=== PATIENT | female | born 1945 | race Caucasian/White ===

== ENCOUNTER 2016-11-26 12:08 | Inpatient (IN) | payer MEDICARE ==
[~2016-11-26] VITALS: Ht 160 cm; Wt 147.2 kg
--- NOTE | ~2016-11-26 | PR ---
[place], [place] PROGRESS NOTE NAME: MAU MARTINEZ [facility] #: [id number] UNIT #: [id number] ROOM: 410 DOCTOR: FLORI FERNANDES MD,EVELIN BIRTHDATE: [birth year] DOS: 12/07/2016 SUBJECTIVE: She has been doing well at this time. Currently being assessed the patient for transfer to the [facility]. The patient denies symptoms of chest pain, coughing or sputum expectoration. OBJECTIVE: VITAL SIGNS: For the patient, which were recorded showed normal temperature, respiratory rate 21, heart rate 58, blood pressure 147/57. The pulse oxygen saturation of the patient 3 liters canula was 96% saturation. HEENT: Examination shows chronic obesity. NECK: Supple. CARDIOVASCULAR: S1, S2 audible. LUNGS: No wheezing or crackles at this time. ABDOMEN: Soft, nontender. LABORATORY DATA: The patient's CBC this morning was noted WBC count 14.3, hemoglobin 10.1, hematocrit 33.1, platelet count was normal. The BMP of the patient this morning, BUN 43, creatinine 1.41, glucose 346. IMPRESSION: 1. Resolving acute on chronic hypercapnic and hypoxic respiratory failure with the improvement, continue acute exacerbation of bronchial asthma. 2. Morbid obesity. 3. Acute cor pulmonale. PLAN OF TREATMENT: Continue the patient's current plan of management previously without any changes. Other supportive therapy, plan of care and management. Usual care. EVELIN RUBY MD CM:PNTRANS [id number] EVELIN FERNANDES MD 12/08/16 0613 interface
--- NOTE | ~2016-11-26 | PR ---
[place], [place] PROGRESS NOTE NAME: MAU MARTINEZ UNIT #: [id number] ROOM: 410 DOCTOR: EVELIN PEREZ MD BIRTHDATE: [birth year] DOS: 12/06/2016 SUBJECTIVE: She has been noted comfortable at this time, sitting on her bed. The legs wrap, which patient has removed. The edema of the lower extremity has been gradually subsiding. She denies symptoms of chest pain. Coughing and wheezing and shortness of breath of the patient was resolving progressively. OBJECTIVE: VITAL SIGNS: Normal temperature, respiratory 24-16, heart rate 66-58, blood pressure 137/70 to 151/54. Intake for this patient is 1400 mL, the output was 3200 mL noted approximately. Pulse oxygen saturation noted on 4 L nasal cannula 93% with a BiPAP 35% oxygen 98% saturation as well. HEENT: Showed no new change. NECK: Supple. It was obese. CARDIOVASCULAR SYSTEM: S1, S2 audible. LUNGS: Shows moderate decreased breath sounds in the patient noted with scattered wheezing and crackles. ABDOMEN: Soft, nontender. LABORATORY DATA: CBC: WBC count 11.7, hemoglobin 9.9, hematocrit 32.8, platelet count was normal. BMP of the patient this morning, BUN 45, creatinine 1.55. Sodium 334, CO2 of 39. IMPRESSION: 1. Resolving acute on chronic hypercapnic and hypoxic respiratory failure progressively. 2. Acute kidney injury, patient related to the diuretic therapy as well. 3. Improving acute congestive heart failure, cor pulmonale as well. 4. History of chronic atrial fibrillation. 5. Acute exacerbation of bronchial asthma. PLAN OF TREATMENT: No changes from the pulmonary standpoint at this time will be necessary. The patient will be continued on current treatment for this patient as previously in plan. Usual care. Supportive care. Waiting for this patient for transfer to the [facility]. [place], [place] PROGRESS NOTE NAME: MAU MARTINEZ UNIT #: [id number] ROOM: 410 DOCTOR: EVELIN PEREZ MD BIRTHDATE: [birth year] EVELIN RUBY MD CM:PNTRANS [phone] EVELIN FERNANDES MD 12/08/16 0637 interface
--- NOTE | ~2016-11-26 | CON ---
[place], [place] REPORT OF CONSULTATION NAME: MUA MARTINEZ [facility] #: [id number] UNIT #: [id number] ROOM: 528 DOCTOR: MELODY ROD DPM BIRTHDATE: [birth year] DOS: 11/26/2016 SUBJECTIVE: The patient presents with a chief complaint of chronic lymphedema to both lower extremities. The patient has a past medical history of acute bilateral lower extremity cellulitis, chronic lymphedema, leukocytosis, hypertension, hyperlipidemia, type 2 diabetes, chronic systolic and diastolic heart failure, history of cor pulmonale, chronic respiratory failure, atrial fibrillation, chronic kidney disease stage 3, asthma, obesity, obstructive sleep apnea, hypothyroidism, anxiety. PHYSICAL EXAMINATION: On lower extremity examination, there is spongiotic dermatitis bilateral lower extremity, edema and venous insufficiency. Lymphedema bilateral with erythema, no signs of acute drainage, no deep ulceration noted. Venous Dopplers were negative for DVT. ASSESSMENT: Edema, venous insufficiency, cellulitis, lymphedema, bilateral lower extremities. PLAN: Evaluation and management. Unna boots applied in both lower extremities. Thank you for kind consultation. The patient will be followed sometime next week. MELODY ROD DPM CM:CONSTR:REPORT OF CONSULTATION 1022 11/28/16 0205 interface
--- NOTE | ~2016-11-26 | PROC NOTE ---
[place], [place] PROCEDURE NOTE NAME: MAU MARTINEZ UNIT #: [id number] ROOM: [facility] DOCTOR: DAVY CHOWDHURY DO BIRTHDATE: [birth year] DOS: 11/26/2016 ADDENDUM Addendum to the procedure note dictated by Dr. Lorie Hanna. I was present for the entirety of the procedure, the patient was prepped and draped in a sterile fashion. Access was obtained using Seldinger technique, a central line was then placed successfully. Blood return was found, all lines flushed easily. A chest x-ray was ordered to confirm placement. ESTIMATED BLOOD LOSS: Minimal. DAVY CHOWDHURY DO CM:PROCNOTE:PROCEDURE NOTE 11 32 DAVY CHOWDHURY DO
--- NOTE | ~2016-11-26 | PROC NOTE ---
[place], [place] PROCEDURE NOTE [facility] [id number] UNIT #: [id number] ROOM: [facility] DOCTOR: LORIE GARCIA DO BIRTHDATE: [birth year] DOS: 11/26/2016 The patient was placed in the Trendelenburg position. The patient's right neck was draped with 2% chlorhexidine and 70% alcohol and skin antiseptic and draped in a sterile fashion and maximum barrier precautions were used. A 1% lidocaine, approximately 1 mL was used to anesthetize the insertion site and internal jugular was accessed using ultrasound guidance and a triple lumen Cordis catheter was introduced using the Seldinger technique. The catheter was threaded smoothly over the guidewire and advanced easily into the vein. A brisk blood return was obtained from each lumen. Each lumen was then easily flushed with 10 mL of sterile normal saline. The catheter was sutured in place with a suture ring. There were no signs or symptoms related to insertion complications and the patient tolerated the procedure well. A chest x-ray has been ordered to confirm placement. The attending was Davy Wang and the senior resident Manuel ____ was present for the entire procedure. A timeout was performed prior to any intervention. Lorie Garcia DO DAVY WANG DO CM:PROCNOTE:PROCEDURE NOTE 09 37 LORIE GARCIA DO
--- NOTE | ~2016-11-26 | WRIGHTHP ---
[place], [place] PATIENT HISTORY AND PHYSICAL EXAM NAME: MAU MARTINEZ [facility] #: [id number] UNIT #: [id number] ROOM: 528 DOCTOR: BELEN ESPINOZA DO BIRTHDATE: [birth year] DOS: PRIMARY CARE PHYSICIAN: Dr. Valencia. The patient was seen and evaluated with the resident on 11/26/2016. Please see the resident's note for further details. ASSESSMENT: 1. Acute bilateral lower extremity cellulitis. 2. Chronic lymphedema. 3. Leukocytosis. 4. Hypertension. 5. Hyperlipidemia. 6. Diabetes mellitus type 2. 7. Chronic systolic and diastolic heart failure, currently compensated. 8. History of cor pulmonale. 9. Chronic respiratory failure. 10. Paroxysmal atrial fibrillation and chronically anticoagulated. 11. Chronic kidney disease stage 3. 12. Asthma. 13. Obesity. 14. Obstructive sleep apnea. 15. Hypothyroidism. 16. Anxiety. 17. Echocardiogram in August 2016 measured a normal ejection fraction. PLAN: Continue IV antibiotics. Follow up on final cultures. Consult Dr. Chew for the lymphedema. Continue other home medications. BELEN ESPINOZA DO CM:HISPHYS:PATIENT HISTORY AND PHYSICAL EXAMINATION 09 29 BELEN ESPINOZA DO 11/26/16 173 interface
--- NOTE | ~2016-11-26 | PR ---
[place], [place] PROGRESS NOTE NAME: MAU MARTINEZ [facility] #: [id number] UNIT #: [id number] ROOM: 410 DOCTOR: SIM SUTTON DPM BIRTHDATE: [birth year] DOS: SUBJECTIVE: The patient is seen today for followup of chronic venous insufficiency, edema of both lower extremities. She states her legs are feeling better. Overall, she is feeling better and breathing a little easier. OBJECTIVE: Upon evaluation of the lower extremities, there is still chronic brawny edema with chronic pigment changes bilaterally. There are no open or draining areas. Negative Homans sign is seen. Really, no signs of active infection, just chronic swelling. ASSESSMENT: Chronic venous insufficiency, edema, resolved cellulitis bilaterally. PLAN: Recommend continue to leave the legs open to air. I encouraged her to elevate her legs whenever possible. Right now, her legs are stable and will follow her up as needed. SIM SUTTON DPM CM:PNTRANS [phone] SIM SUTTON DPM 12/07/16 0621 interface
--- NOTE | ~2016-11-26 | CON ---
[place], [place] REPORT OF CONSULTATION NAME: MAU MARTINEZ [facility] #: [id number] UNIT #: [id number] ROOM: [facility] DOCTOR: EVELIN PEREZ MD BIRTHDATE: [birth year] DOS: 12/02/2016 PULMONARY CRITICAL CARE EVALUATION Consultation was requested by the hospitalist services. Consultation done for the patient change in mental status with acute hypercapnic and hypoxic respiratory failure, chronic hypoxic and hypercapnic respiratory failure. HISTORY OF PRESENT ILLNESS: A 71 years old white female who has been admitted under the hospitalist service, the patient on the date 11/26/2016. She has been admitted to the hospital originally because of progressive edema of the lower extremities. The symptoms of the patient have been noted gradually worse for this patient, she has been known with history of chronic lymphedema as well with superimposed edema was noted. She was assessed and diagnosed with cellulitis and started on the antibiotics. The patient was managed on the medical floor for the patient when she has been noted with progressive change in mental status and later noted complete unresponsiveness. She was assessed and arterial blood gases were done for this patient. The arterial blood gas of the patient shows acute on chronic hypercapnic and hypoxic respiratory failure. She was immediately transferred to Intensive Care Unit on my order on 12/01/2016. She was started on the BiPAP for this patient. The setting was maximized for the patient several hours with gradual improvement in mental status has been noted this morning in the last 12 hours. She has been noted more awake and alert this morning, able to answer the questions appropriately, does not show any confusion. She does have symptoms of shortness breath, which occurred yesterday as well with increase initially and currently noted with reduction from yesterday. She does have symptoms of nonproductive cough. Denies any wheezing or any chest pain. REVIEW OF SYSTEMS: CONSTITUTIONAL SYMPTOMS: Fatigue and tiredness described for the patient without symptoms of fever or chills. EYES: Denies any burning, redness, or tenderness. EARS, NOSE, AND THROAT SYMPTOMS: No sore throat, hoarseness, otalgia, postnasal drainage. CARDIOVASCULAR SYSTEM: Denies any anginal pain, pain in the lower extremity, noted chronic lymphedema, superimposed edema of the patient recently as well. GASTROINTESTINAL SYMPTOMS: Denies symptoms of nausea, vomiting, diarrhea, abdominal pain, hematemesis, melena, hematochezia, nausea or vomiting. GENITOURINARY SYMPTOMS: Denies dysuria, suprapubic pain, hematuria. MUSCULOSKELETAL SYMPTOMS: Denies acute joint pain, redness or tenderness at the present time. SKIN: Noted chronic lymphedema of lower extremities for this patient. CENTRAL NERVOUS SYSTEM: Denies dizziness, headache, diplopia. Remaining systems were reviewed with the patient, they were noted all negative. PAST MEDICAL HISTORY: [place], [place] REPORT OF CONSULTATION NAME: MAU MARTINEZ UNIT #: [id number] ROOM: [facility] DOCTOR: YAIMA PEREZ MDM BIRTHDATE: [birth year] 1. Noted for previous hospitalization in this hospital in September 2016 for the medical management for this patient at that time for the acute congestive heart failure for the patient with exacerbation of bronchial asthma. The patient adequately treated and discharged home and remains asymptomatic until recently. 2. Past medical history of the patient was known as uncomplicated severe persistent bronchial asthma and acute cor pulmonale. 3. Severe morbid obesity. 4. Chronic atrial fibrillation of the patient on anticoagulation. 5. Hypothyroidism. 6. Chronic hypercapnic and hypoxic respiratory failure. 7. Anxiety disorder. 8. Recurrent urinary tract infection. 9. Obstructive sleep apnea disorder, refusal to be treated. 10. Chronic lymphedema of the lower extremities with recurrent cellulitis as well. 11. Chronic kidney disease, stage 2 to stage 3. PAST SURGICAL HISTORY: 1. T and A. 2. Appendectomy. 3. Cholecystectomy. SOCIAL HISTORY: The patient is , lives at home alone, has been helped by a sister. There was no history of alcohol use, tobacco use or any illicit drugs. FAMILY HISTORY: Father at 92, complications of acute myocardial infarction. Mother at 66 years old for the patient complication related to the myocardial infarction as well. DRUG ALLERGY HISTORY: THE PATIENT WAS NOTED ALLERGY TO THE SULFA DRUGS. MEDICATIONS: Current administered medications for the patient were noted on this admission as use of IV Solu-Medrol, Singulair, Bumex intravenously 1 mg b.i.d., Cardizem-CD, omeprazole, levothyroxine, metoprolol tartrate, amlodipine, Eliquis, Lipitor, Dulera, Levaquin, vancomycin, Zosyn and other p.r.n. medications administration. PHYSICAL EXAMINATION: GENERAL: This is a 71 years old female who has been currently noted awake and alert without any distress. VITAL SIGNS: Height for the patient noted 5 feet 2 inches, weight was recorded as 308 pounds on admission, currently weight was noted 323 pounds since admission in the last 6 days. The BMI previously noted 54. VITAL SIGNS: For the patient shows a normal temperature. The respiratory rate of the patient recorded as 18-20, heart rate 70-61, blood pressure 118/44-124/49. HEENT: Head was atraumatic. Eyes, nonicterus. NECK: Supple and obese. Decreased posterior pharyngeal space. CARDIOVASCULAR SYSTEM: S1, S2 audible. [place], [place] REPORT OF CONSULTATION NAME: MAU MARTINEZ UNIT #: [id number] ROOM: [facility] DOCTOR[facility] [birth year] LUNGS: The patient was noted without any wheezing. Decreased breath sounds noted with scattered crackles of the lungs. ABDOMEN: Noted severe obesity. Bowel sounds present. EXTREMITIES: Chronic lymphedema. The patient currently wrapped with the Jeremy bandage. LABORATORY DATA: The admission CBC for this patient was noted as WBC count of 13.6, hemoglobin 11.4, hematocrit 37.5, platelet count was normal. The CMP of the patient was noted as sodium 134, BUN 12, creatinine 1.06. Potassium of 3.1. Venous Dopplers of the lower extremity limited study 11/26/2016 does not show any evidence of deep venous thrombosis. CMP of the patient on 11/26/2016 on admission, BUN 12, creatinine 1.06. Blood culture of the patient, which was done on the of this month so far reported no bacterial growth. Final culture results were pending. The arterial blood gas that was done yesterday afternoon for this patient shows pH of 7.18, pCO2 of 94.4, pO2 60, that was done on 3 L nasal cannula oxygen supplementation. The arterial blood gas on the BiPAP settings of 13/07 yesterday pH of 7.23, pCO2 of 85, pO2 of 76.4. The arterial blood gas of the patient that was done this morning on 50% oxygen with the BiPAP, pH of 7.31, pCO2 of 64, pO2 112. CBC this morning, WBC count 11.3, hemoglobin 9.8, hematocrit 33.5, platelet count was normal. The BMP of the patient that was done this morning, BUN 32, creatinine 1.49, carbon dioxide 35. The chest x-ray of the patient that was done for the patient on 12/01/2016 shows no pneumothorax with mild increased pulmonary venous congestion markings. The chest x-ray for the patient that was done for the patient on 11/26/2016 on admission for the patient was noted with increased interstitial markings with patchy area of infiltration for this patient and/or atelectasis. IMPRESSION: 1. The patient who has been currently admitted to the hospital noted with the increased cellulitis in the lower extremity with cor pulmonale for this patient with acute currently noted with acute on chronic hypercapnic hypoxic respiratory failure resulting change in mental status with gradual improvement noted in the last 12 hours for the patient after use of the BiPAP. 2. Past history of known obstructive sleep apnea disorder, refusal to use the BiPAP long-term. 3. Cellulitis, lower extremity. The patient responding to treatment gradually. 4. Acute kidney injury for the patient, which has worsened partly because use of the diuretic therapy. 5. Severe morbid obesity history as well. 6. History of chronic atrial fibrillation, which is noted well controlled. 7. Chronic anticoagulation in the form of the Eliquis. 8. Acute exacerbation of bronchial asthma, currently treated with corticosteroids. PLAN OF TREATMENT: Monitor kidney function of the patient, diuretic therapy for this patient at the present time. Bronchodilators of the patient to be continued as ordered. BiPAP will be continued most of the time for the patient to help resolve the hypercapnic and hypoxic respiratory failure. Solu-Medrol dose will be kept at this time. The antibiotic spectrum was noted very broad spectrum for the patient. If the cultures come back all negative, certainly [place], [place] REPORT OF CONSULTATION NAME: MAU MARTINEZ UNIT #: [id number] ROOM: [facility] DOCTOR: FLORI FERNANDES MD,EVELIN BIRTHDATE: [birth year] reduce the use of antibiotic spectrum for the patient, possible continuation of the Levaquin with Rocephin. Assess the patient for admission to the group home facility upon discharge. Keep the patient Intensive Care Unit for the next 24 hours until further improvement noted in the respiratory status if the potential intubation existed for this patient in case of worsening of the respiratory status further and the lack of response with the BiPAP. All other treatment, plan of management and usual care. Supportive care. Total time of the patient pulmonary critical care evaluation and management for the patient for the current admission was 40 minutes. EVELIN RUBY MD CM:CONSTR:REPORT OF CONSULTATION 1601 12/03/16 1421 interface
--- NOTE | ~2016-11-26 | PR ---
[place], [place] PROGRESS NOTE NAME: MAU MARTINEZ [facility] #: [id number] UNIT #: [id number] ROOM: 410 DOCTOR: SIM SUTTON DPM BIRTHDATE: [birth year] DOS: 12/03/2016 SUBJECTIVE: The patient is seen today for followup of venous insufficiency, edema and cellulitis of both lower extremities. She states her legs are feeling better. OBJECTIVE: Upon evaluation of lower extremities, Unna boots and dressings are removed. There is no cellulitis about the legs at this time. No active drainage, no real open areas. She has brawny edema with chronic dry brawny skin, a little bit of ecchymosis at the heels, but no blisters or open areas. Again, no active infection is noted in the lower legs bilaterally. ASSESSMENT: Chronic venous insufficiency, edema, resolved cellulitis, bilateral lower legs. PLAN: Evaluation and management. Recommend elevating her legs keeping pressure off the heels. She does not need any further Unna boots at this time. Her edema has reduced. Reevaluate her on Tuesday if she is still in the hospital, but right now her legs are doing much better. SIM SUTTON DPM CM:CHRISTIAN [phone] SIM SUTTON DPM 12/06/16 0745 interface
[~2016-11-26 12:08] MED LIST: ACTOS15 MG PO; ADVAIR 250/501 EA INH; ALBUTEROL0.09 MG/Ac INH; AMBIEN10 MG PO; ASPIR-TRIN325 MG PO; ASPIRIN325 M2 PO; ATIVAN0.5 MG PO; AVPAK AZITHROM250 M1 PO; B12,B-12,B 12500 MC1 PO; BREO ELLIPTA 21 EACH IH; BUMETANIDE1 MG PO; BUMEX1 MG PO; CARDIZEM CD120 MG PO; CARDIZEM CD300 MG PO; CEFTRIAXON1 GM/50 M1 IV; CEFTRIAXON1 GM/50 ML IV; CEFTRIAXONE1 GM IV; CHILDREN'S CHEW81 MG PO; CIPRO250 MG PO; CIPRO500 MG PO; CIPROFLOXACIN250 MG PO; CORDARONE200 MG PO; COZAAR100 MG PO; DILTIAZEM 24HR300 MG PO; DILTIAZEM CD240 MG PO; DILTIAZEM HYDR180 M2 PO; DOXYCYCLINE100 M3 PO; DULCOLAX10 M1 PO; DUONEB 3 MG/3 ML3 M1 INH; DUONEB 3 MG/3 ML3 M1 NEB; ELIQUIS5 M1 PO; EUCERIN1 CRE T; FERRATE325 MG PO; FERROUS AMMONIU PO; FLECAINIDE ACE100 M1 PO; FLECAINIDE ACE150 M1 PO; FUROSEMIDE10 MG/ML IV; FUROSEMIDE40 MG PO; GLIPIZIDE5 MG PO; HEPARIN LOCK F1 U/ML IV; IPRAT-ALBUT 0.5-3(2.; IRON TABLETS325 MG PO; K-DUR20 MEQ PO; K-Dur 20MEQ20 MEQ PO; K-NORM10 MEQ PO; K-TAB10 MEQ PO; K-TAB20 MEQ PO; KLOR-CON M2020 ME1 PO; LASIX10 MG/ML IV; LASIX20 MG PO; LASIX40 MG PO; LASIX80 MG PO; LEVAQUIN750 M1 PO; LEVOFLOXACIN500 MG PO; LEVOTHROID0.025 MG PO; LIPITOR20 MG PO; LISINOPRIL20 MG PO; LISINOPRIL40 MG PO; LOSARTAN POTAS100 MG PO; Lasix80 MG PO; METOLAZONE5 MG PO; METOPROLOL SUCC50 M1 PO; METOPROLOL TART50 M1 PO; MICRO K10 MEQ PO; MONTELUKAST SOD10 MG PO; MONTELUKAST TAB 10M; NYAMYC100000 U/G T; NYSTATIN100000 U/1 TP; OMEPRAZOLE20 M2 PO; OXYGEN NAS; PACERONE200 MG PO; PANTOPRAZOLE40 MG PO; PAXIL CR25 MG PO; PAXIL CR37.5 MG PO; PENICILLIN V500 MG; POTASSIUM CHLO20 ME1 PO; PREDNICOT10 MG PO; PREDNISONE10 M1 PO; PREDNISONE10 MG PO; PRILOSEC20 M2 PO; PROAIR HFA0.09 MG/AC INH; PROAIR HFA0.09 MG/AC PO; PROAIR HFA8.5 GM INH; PROPAFENONE HC150 MG PO; PROPAFENONE HC225 MG PO; PROTONIX40 MG PO; SIMVASTATIN40 MG PO; SINGULAIR10 M1 PO; SINGULAIR10 MG PO; STRESS B WITH1 EACH PO; SYMBICORT1 AER INH; SYNTHROID0.025 MG PO; SYNTHROID0.05 MG PO; SYNTHROID25 MCG PO; TOPROL XL100 MG PO; TOPROL XL200 MG PO; TOPROL-XL200 MG PO; TRAD5TAB1 PO; TYLENOL325 M2 PO; VANCOCIN1000 MG/25 IV; VITAMIN D50000 I1 PO; XANAX0.5 MG PO; ZESTRIL,PRINIVI20 MG PO; ZITHROMAX500 MG PO; ZOCOR40 MG PO; ZYVOX600 MG PO
[2016-11-26 12:15] VITALS: BP 142/64
[2016-11-26 13:16] LABS: BASO # 0.1 10*3/uL (0.0-0.1); BASO % 0.6 % (0.0-1.0); EOS # 0.5 10*3/uL (0.0-0.4); EOS % 3.8 % (1.0-4.0); HEMATOCRIT 37.5 % (37.0-47.0); HEMOGLOBIN 11.4 g/dl (12.0-16.0); IG # 0.1 10*3/uL (0.0-0.1); LYMPH # 0.9 10*3/uL (1.3-4.4); LYMPH % 6.9 % (27.0-41.0); MEAN CELL VOLUME 90.6 fl (81.0-99.0); MEAN CORPUSCULAR HGB 27.5 pg (27.0-31.0); MEAN CORPUSCULAR HGB CONC 30.4 g/dl (33.0-37.0); MEAN PLATELET VOLUME 10.2 fl (9.6-12.3); MONO # 0.8 10*3/uL (0.1-1.0); NEUT # 11.2 10*3/uL (2.3-7.9); NEUT % 82.3 % (47.0-73.0); PLATELET COUNT AUTOMATED 319 10*3/uL (130-400); RED BLOOD COUNT 4.14 10*6/uL (4.10-5.10); RED CELL DISTRI WIDTH 16.3 % (0-14.5); WHITE BLOOD COUNT 13.6 10*3/uL (4.8-10.8)
[2016-11-26 13:34] LABS: ALBUMIN 3.2 gm/dl (3.1-4.5); ALKALINE PHOSPHATASE 107 U/L (45-117); BILIRUBIN, TOTAL 0.3 mg/dl (0.2-1.0); BUN 12 mg/dl (7-24); CARBON DIOXIDE 34 mmol/L (21-32); CHLORIDE 100 mmol/L (98-107); EST GLOM FILT AFRICAN AMERICAN > 60 ml/min; GLUCOSE 134 mg/dL (65-99); POTASSIUM 3.1 mmol/L (3.5-5.1); SGOT/AST 15 IU/L (3-35); SGPT/ALT 13 U/L (12-78); SODIUM 142 mmol/L (136-145); TOTAL PROTEIN 6.8 gm/dL (6.4-8.2)
[2016-11-26 13:35] LABS: TROPONIN I < 0.015 ng/ml (<0.045)
[2016-11-26 14:38] VITALS: BP 146/70
[2016-11-26 15:15] VITALS: BP 157/64
[2016-11-26] MEDS ORDERED: LOPRESSOR50 M1 PO (15:41)
[2016-11-26 16:23] VITALS: BP 157/64
[2016-11-26] MEDS ORDERED: CARDIZEM LA300 MG PO (16:35)
[2016-11-26] MEDS ORDERED: LASIX80 MG PO (16:37)
[2016-11-26] MEDS ORDERED: FLECAINIDE ACE150 M1 PO (16:39)
[2016-11-26] MEDS ORDERED: PREDNISONE10 M1 PO (16:40)
[2016-11-26] MEDS ORDERED: DUONEB 3 MG/3 ML3 M1 INH (16:41)
[2016-11-26] MEDS ORDERED: AMOXICILLIN500 M2 PO (16:41)
[2016-11-26 20:00] VITALS: BP 156/58
[2016-11-27] VITALS: BP 115/55
[2016-11-27 05:51] LABS: BUN 10 mg/dl (7-24); CARBON DIOXIDE 34 mmol/L (21-32); CHLORIDE 103 mmol/L (98-107); EST GLOM FILT AFRICAN AMERICAN > 60 ml/min; GLUCOSE 138 mg/dL (65-99); MAGNESIUM 1.6 mg/dL (1.5-2.1); POTASSIUM 3.3 mmol/L (3.5-5.1); SODIUM 141 mmol/L (136-145)
[2016-11-27 05:55] LABS: BASO # 0.1 10*3/uL (0.0-0.1); BASO % 0.5 % (0.0-1.0); EOS # 0.7 10*3/uL (0.0-0.4); EOS % 5.3 % (1.0-4.0); HEMATOCRIT 32.9 % (37.0-47.0); HEMOGLOBIN 9.8 g/dl (12.0-16.0); IG # 0.1 10*3/uL (0.0-0.1); LYMPH % 7.4 % (27.0-41.0); MEAN CELL VOLUME 92.4 fl (81.0-99.0); MEAN CORPUSCULAR HGB 27.5 pg (27.0-31.0); MEAN CORPUSCULAR HGB CONC 29.8 g/dl (33.0-37.0); MEAN PLATELET VOLUME 10.3 fl (9.6-12.3); MONO # 0.8 10*3/uL (0.1-1.0); MONO % 6.3 % (3.0-9.0); NEUT # 10.3 10*3/uL (2.3-7.9); PLATELET COUNT AUTOMATED 295 10*3/uL (130-400); RED BLOOD COUNT 3.56 10*6/uL (4.10-5.10); RED CELL DISTRI WIDTH 16.4 % (0-14.5); WHITE BLOOD COUNT 12.9 10*3/uL (4.8-10.8)
[2016-11-27 05:56] LABS: CHOLESTEROL 149 mg/dL (<200); FREE T4 1.11 ng/dl (0.76-1.46); HDL CHOLESTEROL 60 mg/dl (40-60); LDL CHOLESTEROL 77 mg/dL (9-159); TRIGLYCERIDES 58 mg/dl (<150); VLDL CHOLESTEROL 12 mg/dL (6-40)
[2016-11-27 06:11] LABS: INTERNATIONAL NORM RATIO 1.1 (2.0-3.5); PROTHROMBIN TIME 11.3 SECONDS (9.0-12.4)
[2016-11-27 07:03] LABS: HEMOGLOBIN A1c 6.8 % (4.8-5.6)
[2016-11-27 08:00] VITALS: BP 108/52
[2016-11-27 09:04] LABS: FOLIC ACID 7.17 ng/mL (>5.38); VITAMIN D, 25-HYDROXY 34.5 ng/mL (30-100)
[2016-11-27 12:00] VITALS: BP 122/50
[2016-11-27 16:00] VITALS: BP 137/57
[2016-11-27 20:00] VITALS: BP 112/53
[2016-11-28 00:18] VITALS: BP 120/56
[2016-11-28 06:56] LABS: BASO # 0.1 10*3/uL (0.0-0.1); BASO % 0.5 % (0.0-1.0); EOS # 0.7 10*3/uL (0.0-0.4); HEMATOCRIT 33.1 % (37.0-47.0); HEMOGLOBIN 9.8 g/dl (12.0-16.0); IG # 0.1 10*3/uL (0.0-0.1); LYMPH # 0.9 10*3/uL (1.3-4.4); LYMPH % 6.2 % (27.0-41.0); MEAN CELL VOLUME 94.6 fl (81.0-99.0); MEAN CORPUSCULAR HGB CONC 29.6 g/dl (33.0-37.0); MONO # 0.9 10*3/uL (0.1-1.0); MONO % 6.6 % (3.0-9.0); NEUT # 11.2 10*3/uL (2.3-7.9); NEUT % 81.1 % (47.0-73.0); PLATELET COUNT AUTOMATED 279 10*3/uL (130-400); RED CELL DISTRI WIDTH 16.8 % (0-14.5); WHITE BLOOD COUNT 13.8 10*3/uL (4.8-10.8)
[2016-11-28 07:18] LABS: ALBUMIN 2.5 gm/dl (3.1-4.5); BILIRUBIN, TOTAL 0.2 mg/dl (0.2-1.0); MAGNESIUM 1.9 mg/dL (1.5-2.1); POTASSIUM 3.8 mmol/L (3.5-5.1); TOTAL PROTEIN 5.7 gm/dL (6.4-8.2)
[2016-11-28 08:00] VITALS: BP 137/55
[2016-11-28 12:00] VITALS: BP 107/52
[2016-11-28 16:00] VITALS: BP 124/51
[2016-11-28 20:00] VITALS: BP 118/68
[2016-11-29] VITALS: BP 125/58
[2016-11-29 07:08] LABS: BASO # 0.1 10*3/uL (0.0-0.1); BASO % 0.3 % (0.0-1.0); EOS # 0.3 10*3/uL (0.0-0.4); EOS % 1.6 % (1.0-4.0); HEMATOCRIT 34.5 % (37.0-47.0); HEMOGLOBIN 10.3 g/dl (12.0-16.0); IG # 0.1 10*3/uL (0.0-0.1); LYMPH # 0.6 10*3/uL (1.3-4.4); LYMPH % 3.2 % (27.0-41.0); MEAN CELL VOLUME 92.2 fl (81.0-99.0); MEAN CORPUSCULAR HGB 27.5 pg (27.0-31.0); MEAN CORPUSCULAR HGB CONC 29.9 g/dl (33.0-37.0); MEAN PLATELET VOLUME 10.6 fl (9.6-12.3); MONO # 1.1 10*3/uL (0.1-1.0); MONO % 5.9 % (3.0-9.0); NEUT # 16.2 10*3/uL (2.3-7.9); NEUT % 88.5 % (47.0-73.0); PLATELET COUNT AUTOMATED 305 10*3/uL (130-400); RED BLOOD COUNT 3.74 10*6/uL (4.10-5.10); RED CELL DISTRI WIDTH 16.6 % (0-14.5); WHITE BLOOD COUNT 18.3 10*3/uL (4.8-10.8)
[2016-11-29 07:37] LABS: ALBUMIN 2.9 gm/dl (3.1-4.5)
[2016-11-29 07:43] LABS: BILIRUBIN, TOTAL 0.6 mg/dl (0.2-1.0); TOTAL PROTEIN 6.4 gm/dL (6.4-8.2)
[2016-11-29 08:00] VITALS: BP 146/60
[2016-11-29 12:00] VITALS: BP 122/56
[2016-11-29 16:00] VITALS: BP 136/42
[2016-11-29 20:03] VITALS: BP 134/45
[2016-11-30] VITALS: BP 132/57
[2016-11-30 06:10] LABS: POTASSIUM 3.9 mmol/L (3.5-5.1)
[2016-11-30 06:16] LABS: BASO # 0.1 10*3/uL (0.0-0.1); BASO % 0.4 % (0.0-1.0); EOS # 0.3 10*3/uL (0.0-0.4); EOS % 2.1 % (1.0-4.0); HEMATOCRIT 34.8 % (37.0-47.0); HEMOGLOBIN 9.9 g/dl (12.0-16.0); IG # 0.2 10*3/uL (0.0-0.1); LYMPH # 0.6 10*3/uL (1.3-4.4); MEAN CORPUSCULAR HGB 27.2 pg (27.0-31.0); MEAN CORPUSCULAR HGB CONC 28.4 g/dl (33.0-37.0); MONO # 1.1 10*3/uL (0.1-1.0); MONO % 7.4 % (3.0-9.0); NEUT # 13.1 10*3/uL (2.3-7.9); NEUT % 85.1 % (47.0-73.0); PLATELET COUNT AUTOMATED 275 10*3/uL (130-400); RED BLOOD COUNT 3.64 10*6/uL (4.10-5.10); RED CELL DISTRI WIDTH 16.8 % (0-14.5); WHITE BLOOD COUNT 15.4 10*3/uL (4.8-10.8)
[2016-11-30 06:17] LABS: MEAN CELL VOLUME 95.6 fl (81.0-99.0)
[2016-11-30 08:00] VITALS: BP 103/84
[2016-11-30 12:00] VITALS: BP 129/66
[2016-11-30 16:00] VITALS: BP 113/53
[2016-11-30 19:54] VITALS: BP 120/56
[2016-11-30 23:45] VITALS: BP 122/64
[2016-12-01 06:42] LABS: HEMATOCRIT 34.8 % (37.0-47.0); MEAN CELL VOLUME 95.3 fl (81.0-99.0); MEAN CORPUSCULAR HGB 27.4 pg (27.0-31.0); MEAN CORPUSCULAR HGB CONC 28.7 g/dl (33.0-37.0); MEAN PLATELET VOLUME 10.9 fl (9.6-12.3); PLATELET COUNT AUTOMATED 302 10*3/uL (130-400); RED BLOOD COUNT 3.65 10*6/uL (4.10-5.10); RED CELL DISTRI WIDTH 16.4 % (0-14.5); WHITE BLOOD COUNT 16.9 10*3/uL (4.8-10.8)
[2016-12-01 06:53] LABS: POTASSIUM 4.1 mmol/L (3.5-5.1)
[2016-12-01 07:08] LABS: LYMPHOCYTE # 0.2 10*3/uL (1.3-4.4); METAMYELOCYTES 1 % (0-0); MONOCYTE # 1.4 10*3/uL (0.1-1.0); MYELOCYTES 1 % (0-0); NEUTROPHILS 89 % (47-73); PLATELET SUFFICIENCY NORMAL (NORMAL); TOTAL CELLS COUNTED 100 #CELLS
[2016-12-01 08:00] VITALS: BP 119/67
[2016-12-01 12:00] VITALS: BP 107/51
[2016-12-01 16:11] LABS: ABG BASE EXCESS 3.5 mmol/L (-2.0-2.0); ABG CO2 CONTENT 37.4 mmol/L (23-27); ABG HCO3 34.4 mmol/l (22-26); ABG TEMPERATURE 97.5 F (98.0-99.0); ARTERIAL BLOOD GAS PO2 60.5 mmHg (80-90)
[2016-12-01 16:18] LABS: ARTERIAL BLOOD GAS PH 7.181 (7.35-7.45)
[2016-12-01 16:30] VITALS: BP 92/56
[2016-12-01 20:00] VITALS: BP 134/58
[2016-12-01 20:19] LABS: ABG BASE EXCESS 5.4 mmol/L (-2.0-2.0); ABG CO2 CONTENT 37.4 mmol/L (23-27); ABG HCO3 34.8 mmol/l (22-26); ABG TEMPERATURE 97.7 F (98.0-99.0); ARTERIAL BLOOD GAS PH 7.231 (7.35-7.45); ARTERIAL BLOOD GAS PO2 76.4 mmHg (80-90)
[2016-12-02] VITALS: BP 132/61
[2016-12-02 04:00] VITALS: BP 131/56
[2016-12-02 06:23] LABS: HEMATOCRIT 33.5 % (37.0-47.0); HEMOGLOBIN 9.8 g/dl (12.0-16.0); MEAN CELL VOLUME 93.8 fl (81.0-99.0); MEAN CORPUSCULAR HGB 27.5 pg (27.0-31.0); MEAN CORPUSCULAR HGB CONC 29.3 g/dl (33.0-37.0); MEAN PLATELET VOLUME 10.8 fl (9.6-12.3); PLATELET COUNT AUTOMATED 272 10*3/uL (130-400); RED BLOOD COUNT 3.57 10*6/uL (4.10-5.10); RED CELL DISTRI WIDTH 15.8 % (0-14.5); WHITE BLOOD COUNT 11.3 10*3/uL (4.8-10.8)
[2016-12-02 06:50] LABS: POTASSIUM 4.7 mmol/L (3.5-5.1)
[2016-12-02 07:14] LABS: LYMPHOCYTE # 0.2 10*3/uL (1.3-4.4); NEUTROPHIL # 11.1 10*3/uL (2.3-7.9); NEUTROPHILS 98 % (47-73); PLATELET SUFFICIENCY NORMAL (NORMAL); TOTAL CELLS COUNTED 100 #CELLS
[2016-12-02 08:00] VITALS: BP 124/49
[2016-12-02 08:22] LABS: ABG BASE EXCESS 4.7 mmol/L (-2.0-2.0); ABG CO2 CONTENT 33.7 mmol/L (23-27); ABG HCO3 31.7 mmol/l (22-26); ARTERIAL BLOOD GAS PH 7.312 (7.35-7.45)
[2016-12-02 12:00] VITALS: BP 118/44
[2016-12-02 16:00] VITALS: BP 112/49
[2016-12-02 20:00] VITALS: BP 120/42
[2016-12-03] VITALS: BP 129/49
[2016-12-03 04:00] VITALS: BP 121/44
[2016-12-03 05:50] LABS: POTASSIUM 4.7 mmol/L (3.5-5.1)
[2016-12-03 05:51] LABS: HEMATOCRIT 30.6 % (37.0-47.0); HEMOGLOBIN 9.2 g/dl (12.0-16.0); MEAN CELL VOLUME 92.2 fl (81.0-99.0); MEAN CORPUSCULAR HGB 27.7 pg (27.0-31.0); MEAN CORPUSCULAR HGB CONC 30.1 g/dl (33.0-37.0); MEAN PLATELET VOLUME 11.3 fl (9.6-12.3); PLATELET COUNT AUTOMATED 294 10*3/uL (130-400); RED BLOOD COUNT 3.32 10*6/uL (4.10-5.10); RED CELL DISTRI WIDTH 15.9 % (0-14.5); WHITE BLOOD COUNT 13.1 10*3/uL (4.8-10.8)
[2016-12-03 06:58] LABS: HYPOCHROMIA SLIGHT; LYMPHOCYTE # 0.3 10*3/uL (1.3-4.4); MONOCYTE # 0.3 10*3/uL (0.1-1.0); NEUTROPHIL # 12.6 10*3/uL (2.3-7.9); NEUTROPHILS 96 % (47-73); PLATELET SUFFICIENCY NORMAL (NORMAL); TOTAL CELLS COUNTED 100 #CELLS
[2016-12-03 08:00] VITALS: BP 120/48
[2016-12-03 08:59] LABS: ABG BASE EXCESS 7.8 mmol/L (-2.0-2.0); ABG HCO3 34.1 mmol/l (22-26); ABG TEMPERATURE 97.2 F (98.0-99.0); ARTERIAL BLOOD GAS PH 7.376 (7.35-7.45)
[2016-12-03 12:00] VITALS: BP 122/46
[2016-12-03 15:10] LABS: ORGANISM ID Not indicated. (.); SPECIMEN SOURCE Urine (.); STREPTOCOCCUS PNEUMONIAE AG Negative (Negative)
[2016-12-03 16:00] VITALS: BP 133/80
[2016-12-03 20:00] VITALS: BP 134/56
[2016-12-04] VITALS: BP 151/67
[2016-12-04 06:47] LABS: HEMATOCRIT 34.3 % (37.0-47.0); HEMOGLOBIN 10.1 g/dl (12.0-16.0); MEAN CELL VOLUME 92.5 fl (81.0-99.0); MEAN CORPUSCULAR HGB 27.2 pg (27.0-31.0); MEAN CORPUSCULAR HGB CONC 29.4 g/dl (33.0-37.0); MEAN PLATELET VOLUME 10.8 fl (9.6-12.3); PLATELET COUNT AUTOMATED 325 10*3/uL (130-400); RED BLOOD COUNT 3.71 10*6/uL (4.10-5.10); RED CELL DISTRI WIDTH 15.8 % (0-14.5)
[2016-12-04 07:30] LABS: POTASSIUM 3.9 mmol/L (3.5-5.1)
[2016-12-04 07:45] LABS: MONOCYTE # 0.2 10*3/uL (0.1-1.0); NEUTROPHIL # 11.8 10*3/uL (2.3-7.9); NEUTROPHILS 98 % (47-73); PLATELET SUFFICIENCY NORMAL (NORMAL); TOTAL CELLS COUNTED 100 #CELLS
[2016-12-04 08:00] VITALS: BP 146/63
[2016-12-04 12:00] VITALS: BP 146/52
[2016-12-04 16:00] VITALS: BP 140/60
[2016-12-04 20:35] VITALS: BP 124/69
[2016-12-04 23:40] VITALS: BP 156/74
[2016-12-05 06:25] LABS: HEMATOCRIT 31.6 % (37.0-47.0); HEMOGLOBIN 9.4 g/dl (12.0-16.0); MEAN CELL VOLUME 91.1 fl (81.0-99.0); MEAN CORPUSCULAR HGB 27.1 pg (27.0-31.0); MEAN CORPUSCULAR HGB CONC 29.7 g/dl (33.0-37.0); MEAN PLATELET VOLUME 11.2 fl (9.6-12.3); PLATELET COUNT AUTOMATED 233 10*3/uL (130-400); RED BLOOD COUNT 3.47 10*6/uL (4.10-5.10); RED CELL DISTRI WIDTH 16.1 % (0-14.5); WHITE BLOOD COUNT 10.1 10*3/uL (4.8-10.8)
[2016-12-05 06:59] LABS: POTASSIUM 4.3 mmol/L (3.5-5.1)
[2016-12-05 07:03] LABS: LYMPHOCYTE # 0.4 10*3/uL (1.3-4.4); NEUTROPHIL # 9.7 10*3/uL (2.3-7.9); NEUTROPHILS 96 % (47-73); PLATELET SUFFICIENCY NORMAL (NORMAL); TOTAL CELLS COUNTED 100 #CELLS
[2016-12-05 08:00] VITALS: BP 128/64
[2016-12-05 12:00] VITALS: BP 122/68
[2016-12-05 16:00] VITALS: BP 138/57
[2016-12-05 20:00] VITALS: BP 147/51
[2016-12-05 23:52] VITALS: BP 151/54
[2016-12-06 06:09] LABS: HEMATOCRIT 32.8 % (37.0-47.0); HEMOGLOBIN 9.9 g/dl (12.0-16.0); MEAN CELL VOLUME 90.4 fl (81.0-99.0); MEAN CORPUSCULAR HGB 27.3 pg (27.0-31.0); MEAN CORPUSCULAR HGB CONC 30.2 g/dl (33.0-37.0); MEAN PLATELET VOLUME 11.2 fl (9.6-12.3); PLATELET COUNT AUTOMATED 235 10*3/uL (130-400); RED BLOOD COUNT 3.63 10*6/uL (4.10-5.10); WHITE BLOOD COUNT 11.7 10*3/uL (4.8-10.8)
[2016-12-06 06:49] LABS: LYMPHOCYTE # 0.2 10*3/uL (1.3-4.4); MONOCYTE # 0.1 10*3/uL (0.1-1.0); NEUTROPHIL # 11.3 10*3/uL (2.3-7.9); NEUTROPHILS 97 % (47-73); POLYCHROMASIA SLIGHT; TOTAL CELLS COUNTED 100 #CELLS
[2016-12-06 06:50] LABS: PLATELET SUFFICIENCY NORMAL (NORMAL)
[2016-12-06 08:00] VITALS: BP 137/72
[2016-12-06 12:00] VITALS: BP 131/84
[2016-12-06 16:00] VITALS: BP 147/43
[2016-12-06 20:00] VITALS: BP 154/52
[2016-12-07] VITALS: BP 146/52
[2016-12-07 05:59] LABS: POTASSIUM 3.8 mmol/L (3.5-5.1)
[2016-12-07 06:16] LABS: HEMATOCRIT 33.1 % (37.0-47.0); HEMOGLOBIN 10.1 g/dl (12.0-16.0); MEAN CELL VOLUME 89.9 fl (81.0-99.0); MEAN CORPUSCULAR HGB 27.4 pg (27.0-31.0); MEAN CORPUSCULAR HGB CONC 30.5 g/dl (33.0-37.0); MEAN PLATELET VOLUME 11.3 fl (9.6-12.3); PLATELET COUNT AUTOMATED 228 10*3/uL (130-400); RED BLOOD COUNT 3.68 10*6/uL (4.10-5.10); RED CELL DISTRI WIDTH 15.9 % (0-14.5); WHITE BLOOD COUNT 14.2 10*3/uL (4.8-10.8)
[2016-12-07 06:55] LABS: HYPOCHROMIA SLIGHT; LYMPHOCYTE # 0.4 10*3/uL (1.3-4.4); MONOCYTE # 0.3 10*3/uL (0.1-1.0); NEUTROPHIL # 13.5 10*3/uL (2.3-7.9); NEUTROPHILS 95 % (47-73); PLATELET SUFFICIENCY NORMAL (NORMAL); TOTAL CELLS COUNTED 100 #CELLS
[2016-12-07 08:00] VITALS: BP 144/64
[2016-12-07 12:00] VITALS: BP 147/57
[2016-12-07] MEDS ORDERED: SYNTHROID25 MCG PO (14:13)
[2016-12-07] MEDS ORDERED: CARDIZEM LA300 MG PO (14:13)
[2016-12-07] MEDS ORDERED: OMEPRAZOLE20 M2 PO (14:13)
[2016-12-07] MEDS ORDERED: ELIQUIS5 M1 PO (14:13)
[2016-12-07] MEDS ORDERED: LIPITOR20 MG PO (14:13)
[2016-12-07] MEDS ORDERED: K-TAB10 MEQ PO (14:13)
[2016-12-07] MEDS ORDERED: MONTELUKAST SOD10 MG PO (14:13)
[2016-12-07] MEDS ORDERED: PACERONE200 MG PO (14:13)
[2016-12-07] MEDS ORDERED: PROAIR HFA8.5 GM INH (14:13)
[2016-12-07] MEDS ORDERED: GLIPIZIDE5 MG PO (14:13)
[2016-12-07] MEDS ORDERED: BUMETANIDE1 MG PO (14:13)
[2016-12-07] MEDS ORDERED: BREO ELLIPTA 21 EACH IH (14:13)
[2016-12-07] MEDS ORDERED: TRAD5TAB1 PO (14:13)
[2016-12-07 15:51] VITALS: BP 152/75
== END 2016-12-07 18:55 | disposition home or self-care (01) | DRG 871 ==
LOC: ED 12:08 → EDHOLD 14:26 → 5E 14:26 → ICCU 12-01 16:38 → 4E 12-03 15:24
PROVIDERS: Emergency Medicine; Hospitalist; Internal Medicine; Internal Medicine Critical Care Medicine; Internal Medicine Hospice and Palliative Medicine
PROC: 06H033Z Insertion of Infusion Device into Inferior Vena Cava, Percutaneous Approach (ICD-10-PCS; principal; 2016-12-01)
PROC: 5A09357 Assistance with Respiratory Ventilation, Less than 24 Consecutive Hours, Continuous Positive Airway Pressure (ICD-10-PCS; 2016-12-02)
PROC: 02HV33Z Insertion of Infusion Device into Superior Vena Cava, Percutaneous Approach (ICD-10-PCS; 2016-12-03)
DX: A41.9 Sepsis, unspecified organism (principal); E43 Unspecified severe protein-calorie malnutrition; I50.43 Acute on chronic combined systolic (congestive) and diastolic (congestive) heart failure; N17.9 Acute kidney failure, unspecified; D68.59 Other primary thrombophilia; E11.22 Type 2 diabetes mellitus with diabetic chronic kidney disease; J96.01 Acute respiratory failure with hypoxia; J96.02 Acute respiratory failure with hypercapnia; E11.65 Type 2 diabetes mellitus with hyperglycemia; L03.115 Cellulitis of right lower limb; J45.901 Unspecified asthma with (acute) exacerbation; I13.0 Hypertensive heart and chronic kidney disease with heart failure and stage 1 through stage 4 chronic kidney disease, or unspecified chronic kidney disease; L03.116 Cellulitis of left lower limb; I48.92 Unspecified atrial flutter; Z68.43 Body mass index [BMI] 50.0-59.9, adult; E87.6 Hypokalemia; D64.9 Anemia, unspecified; I87.2 Venous insufficiency (chronic) (peripheral); I48.2 Chronic atrial fibrillation; F41.9 Anxiety disorder, unspecified; G47.33 Obstructive sleep apnea (adult) (pediatric); N18.3 Chronic kidney disease, stage 3 (moderate); J44.9 Chronic obstructive pulmonary disease, unspecified; K21.9 Gastro-esophageal reflux disease without esophagitis; E78.5 Hyperlipidemia, unspecified; E03.9 Hypothyroidism, unspecified; E66.01 Morbid (severe) obesity due to excess calories; Z79.01 Long term (current) use of anticoagulants; Z79.899 Other long term (current) drug therapy; Z90.49 Acquired absence of other specified parts of digestive tract; Z90.721 Acquired absence of ovaries, unilateral; Z88.2 Allergy status to sulfonamides; Z82.3 Family history of stroke; Z82.49 Family history of ischemic heart disease and other diseases of the circulatory system; Z83.3 Family history of diabetes mellitus; I27.81 Cor pulmonale (chronic)

== ENCOUNTER 2017-01-18 10:16 | Inpatient (IN) | payer MEDICARE ==
[~2017-01-18] VITALS: Ht 160 cm; Wt 132.5 kg
[~2017-01-18 10:16] MED LIST changes: +AMOXICILLIN500 M2 PO; +CARDIZEM LA300 MG PO; +LOPRESSOR50 M1 PO
[2017-01-18 11:27] LABS: BUN 16 mg/dl (7-24); CARBON DIOXIDE 29 mmol/L (21-32); CHLORIDE 104 mmol/L (98-107); EST GLOM FILT AFRICAN AMERICAN 48 ml/min; GLUCOSE 100 mg/dL (65-99); MAGNESIUM 1.8 mg/dL (1.5-2.1); PHOSPHOROUS 2.4 mg/dL (2.5-4.9); SODIUM 143 mmol/L (136-145)
[2017-01-18 11:31] LABS: TROPONIN I < 0.015 ng/ml (<0.045)
[2017-01-18 12:00] VITALS: BP 138/73
[2017-01-18] MEDS ORDERED: LASIX20 MG PO (12:19)
[2017-01-18] MEDS ORDERED: XANAX0.5 MG PO (12:21)
[2017-01-18 13:58] LABS: BASO # 0.1 10*3/uL (0.0-0.1); BASO % 0.4 % (0.0-1.0); EOS # 0.3 10*3/uL (0.0-0.4); EOS % 2.6 % (1.0-4.0); HEMOGLOBIN 9.1 g/dl (12.0-16.0); IG # 0.1 10*3/uL (0.0-0.1); LYMPH # 0.9 10*3/uL (1.3-4.4); LYMPH % 7.6 % (27.0-41.0); MEAN CELL VOLUME 90.6 fl (81.0-99.0); MEAN CORPUSCULAR HGB 27.5 pg (27.0-31.0); MEAN CORPUSCULAR HGB CONC 30.3 g/dl (33.0-37.0); MEAN PLATELET VOLUME 9.7 fl (9.6-12.3); MONO # 0.7 10*3/uL (0.1-1.0); MONO % 5.8 % (3.0-9.0); NEUT % 82.9 % (47.0-73.0); PLATELET COUNT AUTOMATED 302 10*3/uL (130-400); RED BLOOD COUNT 3.31 10*6/uL (4.10-5.10); RED CELL DISTRI WIDTH 16.6 % (0-14.5)
[2017-01-18 16:00] VITALS: BP 126/72
[2017-01-18 20:00] VITALS: BP 131/56
[2017-01-19] VITALS (7 sets, daily range): BP systolic 88–137; BP diastolic 50–82
[2017-01-19 06:37] LABS: BASO % 0.2 % (0.0-1.0); EOS # 0.1 10*3/uL (0.0-0.4); EOS % 1.1 % (1.0-4.0); HEMATOCRIT 28.4 % (37.0-47.0); HEMOGLOBIN 8.7 g/dl (12.0-16.0); IG # 0.1 10*3/uL (0.0-0.1); LYMPH # 0.9 10*3/uL (1.3-4.4); LYMPH % 7.3 % (27.0-41.0); MEAN CELL VOLUME 89.9 fl (81.0-99.0); MEAN CORPUSCULAR HGB 27.5 pg (27.0-31.0); MEAN CORPUSCULAR HGB CONC 30.6 g/dl (33.0-37.0); MONO # 0.8 10*3/uL (0.1-1.0); MONO % 6.7 % (3.0-9.0); NEUT # 10.1 10*3/uL (2.3-7.9); NEUT % 84.1 % (47.0-73.0); PLATELET COUNT AUTOMATED 269 10*3/uL (130-400); RED BLOOD COUNT 3.16 10*6/uL (4.10-5.10); RED CELL DISTRI WIDTH 16.9 % (0-14.5); WHITE BLOOD COUNT 12.1 10*3/uL (4.8-10.8)
[2017-01-19 07:11] LABS: POTASSIUM 3.7 mmol/L (3.5-5.1)
[2017-01-19 07:20] LABS: THYROID STIM HORMONE (HS) 4.04 uIU/ml (0.358-4.75)
[2017-01-19 07:24] LABS: HEMOGLOBIN A1c 6.6 % (4.8-5.6)
[2017-01-19 07:42] LABS: FOLIC ACID 8.66 ng/mL (>5.38)
[2017-01-20] VITALS: BP 108/37; BP 108/52
[2017-01-20 08:00] VITALS: BP 130/56
[2017-01-20 08:59] LABS: BASO % 0.3 % (0.0-1.0); EOS # 0.3 10*3/uL (0.0-0.4); EOS % 2.5 % (1.0-4.0); HEMATOCRIT 30.6 % (37.0-47.0); IG # 0.1 10*3/uL (0.0-0.1); LYMPH # 0.8 10*3/uL (1.3-4.4); LYMPH % 7.5 % (27.0-41.0); MEAN CELL VOLUME 91.6 fl (81.0-99.0); MEAN CORPUSCULAR HGB 26.9 pg (27.0-31.0); MEAN CORPUSCULAR HGB CONC 29.4 g/dl (33.0-37.0); MEAN PLATELET VOLUME 9.7 fl (9.6-12.3); MONO # 0.3 10*3/uL (0.1-1.0); MONO % 3.2 % (3.0-9.0); NEUT # 8.8 10*3/uL (2.3-7.9); NEUT % 85.9 % (47.0-73.0); PLATELET COUNT AUTOMATED 249 10*3/uL (130-400); RED BLOOD COUNT 3.34 10*6/uL (4.10-5.10); WHITE BLOOD COUNT 10.2 10*3/uL (4.8-10.8)
[2017-01-20 09:26] LABS: ALBUMIN 2.3 gm/dl (3.1-4.5); BILIRUBIN, TOTAL 0.3 mg/dl (0.2-1.0); POTASSIUM 3.8 mmol/L (3.5-5.1); TOTAL PROTEIN 6.7 gm/dL (6.4-8.2)
[2017-01-20 12:00] VITALS: BP 116/56
[2017-01-20 16:00] VITALS: BP 111/59
[2017-01-20 20:00] VITALS: BP 114/34
[2017-01-21] VITALS (12 sets, daily range): BP systolic 110–136; BP diastolic 30–92
[2017-01-21 06:21] LABS: BASO % 0.3 % (0.0-1.0); EOS # 0.4 10*3/uL (0.0-0.4); EOS % 3.7 % (1.0-4.0); HEMATOCRIT 26.2 % (37.0-47.0); HEMOGLOBIN 7.8 g/dl (12.0-16.0); IG # 0.1 10*3/uL (0.0-0.1); LYMPH # 0.9 10*3/uL (1.3-4.4); LYMPH % 8.4 % (27.0-41.0); MEAN CELL VOLUME 90.7 fl (81.0-99.0); MEAN CORPUSCULAR HGB CONC 29.8 g/dl (33.0-37.0); MEAN PLATELET VOLUME 10.9 fl (9.6-12.3); MONO # 0.7 10*3/uL (0.1-1.0); MONO % 6.3 % (3.0-9.0); NEUT # 9.1 10*3/uL (2.3-7.9); NEUT % 80.8 % (47.0-73.0); PLATELET COUNT AUTOMATED 227 10*3/uL (130-400); RED BLOOD COUNT 2.89 10*6/uL (4.10-5.10); RED CELL DISTRI WIDTH 17.1 % (0-14.5); WHITE BLOOD COUNT 11.2 10*3/uL (4.8-10.8)
[2017-01-21 06:44] LABS: POTASSIUM 4.3 mmol/L (3.5-5.1)
[2017-01-21 06:49] LABS: INTERNATIONAL NORM RATIO 1.2 (2.0-3.5); PROTHROMBIN TIME 12.3 SECONDS (9.0-12.4)
[2017-01-22] VITALS: BP 126/40
[2017-01-22 06:24] LABS: INTERNATIONAL NORM RATIO 1.1 (2.0-3.5); PROTHROMBIN TIME 11.6 SECONDS (9.0-12.4)
[2017-01-22 06:29] LABS: IRON 25 ug/dL (50-170); IRON SATURATION 11 %; UIBC 186 ug/dL (110-365)
[2017-01-22 07:45] LABS: HEMOGLOBIN 7.9 g/dl (12.0-16.0)
[2017-01-22 08:00] VITALS: BP 126/39
[2017-01-22 08:07] LABS: BILIRUBIN NEGATIVE (NEGATIVE); BLOOD NEGATIVE (NEGATIVE); CLARITY CLEAR (CLEAR); COLOR YELLOW (YELLOW); GLUCOSE NEGATIVE (NEGATIVE); KETONE NEGATIVE (NEGATIVE); LEUKO ESTERASE NEGATIVE (NEGATIVE); NITRITE NEGATIVE (NEGATIVE); PROTEIN NEGATIVE (NEGATIVE); SPECIFIC GRAVITY <= 1.005 (1.005-1.030); UROBILINOGEN 0.2 E.U./dl (0.2-1.0)
[2017-01-22 08:19] LABS: BACTERIA 1+; CALCIUM OXALATE CRYSTALS TRACE
[2017-01-22 08:20] LABS: URINE REFLEX COMMENT NO (NO)
[2017-01-22 12:00] VITALS: BP 130/56
[2017-01-22 16:00] VITALS: BP 110/34
[2017-01-22 20:00] VITALS: BP 119/40
[2017-01-23] VITALS: BP 119/48
[2017-01-23 05:48] LABS: BASO % 0.3 % (0.0-1.0); EOS # 0.4 10*3/uL (0.0-0.4); EOS % 3.4 % (1.0-4.0); HEMOGLOBIN 7.9 g/dl (12.0-16.0); IG # 0.1 10*3/uL (0.0-0.1); LYMPH % 8.2 % (27.0-41.0); MEAN CELL VOLUME 89.3 fl (81.0-99.0); MEAN CORPUSCULAR HGB 27.1 pg (27.0-31.0); MEAN CORPUSCULAR HGB CONC 30.4 g/dl (33.0-37.0); MEAN PLATELET VOLUME 10.8 fl (9.6-12.3); MONO # 0.9 10*3/uL (0.1-1.0); MONO % 6.9 % (3.0-9.0); NEUT % 80.6 % (47.0-73.0); PLATELET COUNT AUTOMATED 215 10*3/uL (130-400); RED BLOOD COUNT 2.91 10*6/uL (4.10-5.10); RED CELL DISTRI WIDTH 16.6 % (0-14.5); WHITE BLOOD COUNT 12.4 10*3/uL (4.8-10.8)
[2017-01-23 06:00] LABS: INTERNATIONAL NORM RATIO 1.1 (2.0-3.5); PROTHROMBIN TIME 11.8 SECONDS (9.0-12.4)
[2017-01-23 06:13] LABS: ALBUMIN 2.2 gm/dl (3.1-4.5); BILIRUBIN, TOTAL 0.3 mg/dl (0.2-1.0); MAGNESIUM 1.4 mg/dL (1.5-2.1); PHOSPHOROUS 3.9 mg/dL (2.5-4.9); POTASSIUM 4.7 mmol/L (3.5-5.1); TOTAL PROTEIN 6.3 gm/dL (6.4-8.2)
[2017-01-23 08:00] VITALS: BP 138/45
[2017-01-23 16:00] VITALS: BP 136/57
[2017-01-23 17:03] LABS: ANTI-THROMBIN III ACTIVITY 134 % (75-135); LUPUS DRVVT 155.4 sec (0.0-47.0); PROTEIN S, FREE 95 % (57-157); PROTEIN S, TOTAL 127 % (60-150); PTT-LA 49.3 sec (0.0-51.9)
[2017-01-23 20:00] VITALS: BP 124/54
[2017-01-24] VITALS (11 sets, daily range): BP systolic 102–151; BP diastolic 50–100
[2017-01-24 07:29] LABS: HEMATOCRIT 25.9 % (37.0-47.0); HEMOGLOBIN 7.9 g/dl (12.0-16.0); MEAN CELL VOLUME 89.6 fl (81.0-99.0); MEAN CORPUSCULAR HGB 27.3 pg (27.0-31.0); MEAN CORPUSCULAR HGB CONC 30.5 g/dl (33.0-37.0); MEAN PLATELET VOLUME 10.7 fl (9.6-12.3); PLATELET COUNT AUTOMATED 298 10*3/uL (130-400); RED BLOOD COUNT 2.89 10*6/uL (4.10-5.10); RED CELL DISTRI WIDTH 16.7 % (0-14.5); WHITE BLOOD COUNT 22.5 10*3/uL (4.8-10.8)
[2017-01-24 07:37] LABS: INTERNATIONAL NORM RATIO 1.2 (2.0-3.5); PROTHROMBIN TIME 13.2 SECONDS (9.0-12.4)
[2017-01-24 07:48] LABS: ALBUMIN 2.4 gm/dl (3.1-4.5); BILIRUBIN, TOTAL 0.4 mg/dl (0.2-1.0); POTASSIUM 4.8 mmol/L (3.5-5.1)
[2017-01-24 08:08] LABS: LYMPHOCYTE # 0.2 10*3/uL (1.3-4.4); MONOCYTE # 0.2 10*3/uL (0.1-1.0); NEUTROPHIL # 22.1 10*3/uL (2.3-7.9); NEUTROPHILS 98 % (47-73); PLATELET SUFFICIENCY NORMAL (NORMAL); POLYCHROMASIA SLIGHT; TOTAL CELLS COUNTED 100 #CELLS
[2017-01-24 10:14] LABS: HEMATOCRIT 22.1 % (37.0-47.0); HEMOGLOBIN 6.8 g/dl (12.0-16.0)
[2017-01-24 10:54] LABS: POTASSIUM 5.5 mmol/L (3.5-5.1)
[2017-01-24 22:12] LABS: HEMATOCRIT 24.9 % (37.0-47.0)
[2017-01-24 22:29] LABS: POTASSIUM 6.2 mmol/L (3.5-5.1)
[2017-01-25] VITALS (11 sets, daily range): BP systolic 109–170; BP diastolic 37–70
[2017-01-25 03:08] LABS: POTASSIUM 5.3 mmol/L (3.5-5.1)
[2017-01-25 06:15] LABS: HEMATOCRIT 22.6 % (37.0-47.0); HEMOGLOBIN 7.3 g/dl (12.0-16.0); MEAN CELL VOLUME 87.3 fl (81.0-99.0); MEAN CORPUSCULAR HGB 28.2 pg (27.0-31.0); MEAN CORPUSCULAR HGB CONC 32.3 g/dl (33.0-37.0); MEAN PLATELET VOLUME 10.9 fl (9.6-12.3); PLATELET COUNT AUTOMATED 254 10*3/uL (130-400); RED BLOOD COUNT 2.59 10*6/uL (4.10-5.10); RED CELL DISTRI WIDTH 16.9 % (0-14.5)
[2017-01-25 06:47] LABS: LYMPHOCYTE # 0.6 10*3/uL (1.3-4.4); MONOCYTE # 0.9 10*3/uL (0.1-1.0); NEUTROPHIL # 29.5 10*3/uL (2.3-7.9); NEUTROPHILS 95 % (47-73); PLATELET SUFFICIENCY NORMAL (NORMAL); TOTAL CELLS COUNTED 100 #CELLS
[2017-01-25 06:48] LABS: HYPOCHROMIA SLIGHT; OVALOCYTES FEW; POLYCHROMASIA SLIGHT; VACUOLATION OF NEUTROPHILS SLIGHT
[2017-01-25 06:50] LABS: INTERNATIONAL NORM RATIO 1.5 (2.0-3.5); PROTHROMBIN TIME 16.7 SECONDS (9.0-12.4)
[2017-01-25 06:51] LABS: MAGNESIUM 1.6 mg/dL (1.5-2.1)
[2017-01-25 06:53] LABS: PHOSPHOROUS 5.4 mg/dL (2.5-4.9)
[2017-01-25 12:43] LABS: HEMATOCRIT 23.1 % (37.0-47.0); HEMOGLOBIN 7.5 g/dl (12.0-16.0)
[2017-01-25 12:54] LABS: POTASSIUM 4.4 mmol/L (3.5-5.1)
[2017-01-25 19:30] LABS: POTASSIUM 4.1 mmol/L (3.5-5.1)
[2017-01-26] VITALS (16 sets, daily range): BP systolic 95–143; BP diastolic 32–60
[2017-01-26 00:26] LABS: HEMATOCRIT 21.3 % (37.0-47.0); HEMOGLOBIN 6.8 g/dl (12.0-16.0)
[2017-01-26 06:50] LABS: ALBUMIN 2.2 gm/dl (3.1-4.5); BILIRUBIN, TOTAL 0.3 mg/dl (0.2-1.0); MAGNESIUM 1.6 mg/dL (1.5-2.1); PHOSPHOROUS 4.1 mg/dL (2.5-4.9); TOTAL PROTEIN 5.7 gm/dL (6.4-8.2)
[2017-01-26 07:00] LABS: BASO % 0.2 % (0.0-1.0); EOS # 0.3 10*3/uL (0.0-0.4); EOS % 1.6 % (1.0-4.0); HEMATOCRIT 23.2 % (37.0-47.0); HEMOGLOBIN 7.3 g/dl (12.0-16.0); IG # 0.2 10*3/uL (0.0-0.1); LYMPH # 1.6 10*3/uL (1.3-4.4); LYMPH % 7.7 % (27.0-41.0); MEAN CELL VOLUME 89.2 fl (81.0-99.0); MEAN CORPUSCULAR HGB 28.1 pg (27.0-31.0); MEAN CORPUSCULAR HGB CONC 31.5 g/dl (33.0-37.0); MEAN PLATELET VOLUME 9.9 fl (9.6-12.3); MONO # 1.4 10*3/uL (0.1-1.0); MONO % 6.7 % (3.0-9.0); NEUT # 16.8 10*3/uL (2.3-7.9); NEUT % 82.6 % (47.0-73.0); PLATELET COUNT AUTOMATED 206 10*3/uL (130-400); RED CELL DISTRI WIDTH 16.5 % (0-14.5); WHITE BLOOD COUNT 20.4 10*3/uL (4.8-10.8)
[2017-01-26 07:29] LABS: INTERNATIONAL NORM RATIO 1.8 (2.0-3.5)
[2017-01-26 17:14] LABS: BASO # 0.1 10*3/uL (0.0-0.1); BASO % 0.3 % (0.0-1.0); EOS # 0.4 10*3/uL (0.0-0.4); EOS % 2.2 % (1.0-4.0); HEMATOCRIT 27.5 % (37.0-47.0); HEMOGLOBIN 8.8 g/dl (12.0-16.0); IG # 0.1 10*3/uL (0.0-0.1); LYMPH # 1.4 10*3/uL (1.3-4.4); LYMPH % 8.2 % (27.0-41.0); MEAN CELL VOLUME 86.8 fl (81.0-99.0); MEAN CORPUSCULAR HGB 27.8 pg (27.0-31.0); MEAN PLATELET VOLUME 10.7 fl (9.6-12.3); MONO # 1.4 10*3/uL (0.1-1.0); MONO % 8.1 % (3.0-9.0); NEUT # 14.1 10*3/uL (2.3-7.9); NEUT % 80.4 % (47.0-73.0); PLATELET COUNT AUTOMATED 172 10*3/uL (130-400); RED BLOOD COUNT 3.17 10*6/uL (4.10-5.10); RED CELL DISTRI WIDTH 17.5 % (0-14.5); WHITE BLOOD COUNT 17.5 10*3/uL (4.8-10.8)
[2017-01-27] VITALS: BP 128/46
[2017-01-27 04:00] VITALS: BP 103/49
[2017-01-27 06:13] LABS: POTASSIUM 3.7 mmol/L (3.5-5.1)
[2017-01-27 06:19] LABS: BASO # 0.1 10*3/uL (0.0-0.1); BASO % 0.4 % (0.0-1.0); EOS # 0.5 10*3/uL (0.0-0.4); EOS % 3.1 % (1.0-4.0); HEMATOCRIT 24.4 % (37.0-47.0); HEMOGLOBIN 7.8 g/dl (12.0-16.0); IG # 0.1 10*3/uL (0.0-0.1); LYMPH # 1.3 10*3/uL (1.3-4.4); LYMPH % 8.8 % (27.0-41.0); MEAN CELL VOLUME 89.4 fl (81.0-99.0); MEAN CORPUSCULAR HGB 28.6 pg (27.0-31.0); MEAN PLATELET VOLUME 10.8 fl (9.6-12.3); MONO # 1.2 10*3/uL (0.1-1.0); NEUT # 12.1 10*3/uL (2.3-7.9); PLATELET COUNT AUTOMATED 185 10*3/uL (130-400); RED BLOOD COUNT 2.73 10*6/uL (4.10-5.10); RED CELL DISTRI WIDTH 17.5 % (0-14.5); WHITE BLOOD COUNT 15.3 10*3/uL (4.8-10.8)
[2017-01-27 07:43] LABS: INTERNATIONAL NORM RATIO 1.1 (2.0-3.5); PROTHROMBIN TIME 12.2 SECONDS (9.0-12.4)
[2017-01-27 08:00] VITALS: BP 122/74
[2017-01-27] MEDS ORDERED: BUMEX2.5 MG/10 IV (08:16)
[2017-01-27 11:03] LABS: LUPUS REFLEX INTERPRETATION Comment: (.)
== END 2017-01-27 10:15 | disposition short-term general hospital (02) | DRG 871 ==
LOC: 5E 10:16 → ICCU 10:16 → 5E 01-19 17:25 → ICCU 01-24 09:03
PROVIDERS: Emergency Medicine; Family Medicine; Hospitalist; Internal Medicine; Internal Medicine Critical Care Medicine; Internal Medicine Hematology & Oncology; Internal Medicine Hospice and Palliative Medicine
PROC: 02HV33Z Insertion of Infusion Device into Superior Vena Cava, Percutaneous Approach (ICD-10-PCS; 2017-01-19)
PROC: B548ZZA Ultrasonography of Superior Vena Cava, Guidance (ICD-10-PCS; 2017-01-19)
PROC: 30233N1 Transfusion of Nonautologous Red Blood Cells into Peripheral Vein, Percutaneous Approach (ICD-10-PCS; principal; 2017-01-21)
DX: A41.9 Sepsis, unspecified organism (principal); I26.99 Other pulmonary embolism without acute cor pulmonale; N17.0 Acute kidney failure with tubular necrosis; I50.43 Acute on chronic combined systolic (congestive) and diastolic (congestive) heart failure; K66.1 Hemoperitoneum; J96.10 Chronic respiratory failure, unspecified whether with hypoxia or hypercapnia; N18.3 Chronic kidney disease, stage 3 (moderate); D68.59 Other primary thrombophilia; L03.115 Cellulitis of right lower limb; L03.116 Cellulitis of left lower limb; I13.0 Hypertensive heart and chronic kidney disease with heart failure and stage 1 through stage 4 chronic kidney disease, or unspecified chronic kidney disease; Z68.43 Body mass index [BMI] 50.0-59.9, adult; E66.01 Morbid (severe) obesity due to excess calories; F41.9 Anxiety disorder, unspecified; J44.9 Chronic obstructive pulmonary disease, unspecified; K21.9 Gastro-esophageal reflux disease without esophagitis; E03.9 Hypothyroidism, unspecified; E11.22 Type 2 diabetes mellitus with diabetic chronic kidney disease; Z90.49 Acquired absence of other specified parts of digestive tract; Z82.3 Family history of stroke; Z88.2 Allergy status to sulfonamides; D72.829 Elevated white blood cell count, unspecified; E87.6 Hypokalemia; D64.9 Anemia, unspecified; L85.8 Other specified epidermal thickening; E78.2 Mixed hyperlipidemia; I87.2 Venous insufficiency (chronic) (peripheral); I48.91 Unspecified atrial fibrillation; I89.0 Lymphedema, not elsewhere classified; E87.5 Hyperkalemia; R91.8 Other nonspecific abnormal finding of lung field; I48.0 Paroxysmal atrial fibrillation; M54.9 Dorsalgia, unspecified

== ENCOUNTER 2017-02-07 14:38 | Inpatient (IN) | payer MEDICARE ==
[~2017-02-07] VITALS: Ht 157.4 cm; Wt 138.1 kg
[~2017-02-07 14:38] MED LIST changes: +BUMEX2.5 MG/10 IV
[2017-02-07 14:53] VITALS: BP 146/49
[2017-02-07] MEDS ORDERED: TYLENOL325 M1 PO (14:59)
[2017-02-07] MEDS ORDERED: ELIQUIS5 M1 PO (15:00)
[2017-02-07] MEDS ORDERED: BREO ELLIPTA 21 EACH INH (15:01)
[2017-02-07] MEDS ORDERED: GLIPIZIDE5 M1 PO (15:02)
[2017-02-07] MEDS ORDERED: BUMETANIDE1 MG PO (15:02)
[2017-02-07] MEDS ORDERED: COZAAR100 MG PO (15:03)
[2017-02-07 15:40] LABS: BASO % 0.3 % (0.0-1.0); EOS # 0.4 10*3/uL (0.0-0.4); EOS % 2.8 % (1.0-4.0); HEMATOCRIT 26.7 % (37.0-47.0); HEMOGLOBIN 8.2 g/dl (12.0-16.0); IG # 0.1 10*3/uL (0.0-0.1); LYMPH % 7.6 % (27.0-41.0); MEAN CELL VOLUME 90.8 fl (81.0-99.0); MEAN CORPUSCULAR HGB 27.9 pg (27.0-31.0); MEAN CORPUSCULAR HGB CONC 30.7 g/dl (33.0-37.0); MEAN PLATELET VOLUME 9.2 fl (9.6-12.3); MONO # 0.9 10*3/uL (0.1-1.0); MONO % 6.7 % (3.0-9.0); NEUT # 10.4 10*3/uL (2.3-7.9); NEUT % 81.8 % (47.0-73.0); PLATELET COUNT AUTOMATED 321 10*3/uL (130-400); RED BLOOD COUNT 2.94 10*6/uL (4.10-5.10); RED CELL DISTRI WIDTH 16.8 % (0-14.5); WHITE BLOOD COUNT 12.7 10*3/uL (4.8-10.8)
[2017-02-07 15:57] LABS: ALBUMIN 2.3 gm/dl (3.1-4.5); ALKALINE PHOSPHATASE 90 U/L (45-117); BILIRUBIN, TOTAL 0.5 mg/dl (0.2-1.0); BUN 20 mg/dl (7-24); CARBON DIOXIDE 32 mmol/L (21-32); CHLORIDE 102 mmol/L (98-107); CKMB 0.6 ng/ml (0.5-3.6); CPK 22 U/L (26-192); EST GLOM FILT AFRICAN AMERICAN 54 ml/min; GLUCOSE 131 mg/dL (65-99); LDH 348 U/L (84-246); MAGNESIUM 1.7 mg/dL (1.5-2.1); POTASSIUM 3.5 mmol/L (3.5-5.1); SGOT/AST 18 IU/L (3-35); SGPT/ALT 11 U/L (12-78); SODIUM 141 mmol/L (136-145); TOTAL PROTEIN 6.1 gm/dL (6.4-8.2)
[2017-02-07 15:58] LABS: TROPONIN I < 0.015 ng/ml (<0.045)
[2017-02-07 17:47] LABS: BILIRUBIN NEGATIVE (NEGATIVE); BLOOD NEGATIVE (NEGATIVE); CLARITY SL CLOUDY (CLEAR); COLOR YELLOW (YELLOW); GLUCOSE NEGATIVE (NEGATIVE); KETONE NEGATIVE (NEGATIVE); LEUKO ESTERASE TRACE (NEGATIVE); NITRITE NEGATIVE (NEGATIVE); PH 5.5 (5.0-9.0); PROTEIN NEGATIVE (NEGATIVE); UROBILINOGEN 0.2 E.U./dl (0.2-1.0)
[2017-02-07 17:54] VITALS: BP 161/69
[2017-02-07 18:17] LABS: RBC 0-2 rbc/hpf (0-2)
[2017-02-07 18:18] LABS: URINE REFLEX COMMENT YES (NO)
[2017-02-07 19:22] VITALS: BP 137/47
[2017-02-07 19:40] VITALS: BP 135/71
[2017-02-08] VITALS: BP 120/45
[2017-02-08 07:11] LABS: HEMATOCRIT 26.1 % (37.0-47.0); MEAN CELL VOLUME 90.3 fl (81.0-99.0); MEAN CORPUSCULAR HGB 27.7 pg (27.0-31.0); MEAN CORPUSCULAR HGB CONC 30.7 g/dl (33.0-37.0); MEAN PLATELET VOLUME 9.5 fl (9.6-12.3); PLATELET COUNT AUTOMATED 304 10*3/uL (130-400); RED BLOOD COUNT 2.89 10*6/uL (4.10-5.10); RED CELL DISTRI WIDTH 16.6 % (0-14.5); WHITE BLOOD COUNT 17.1 10*3/uL (4.8-10.8)
[2017-02-08 07:31] LABS: HYPOCHROMIA MODERATE; LYMPHOCYTE # 0.5 10*3/uL (1.3-4.4); NEUTROPHIL # 16.6 10*3/uL (2.3-7.9); NEUTROPHILS 97 % (47-73); PLATELET SUFFICIENCY NORMAL (NORMAL); TOTAL CELLS COUNTED 100 #CELLS
[2017-02-08 07:45] LABS: MAGNESIUM 1.9 mg/dL (1.5-2.1); PHOSPHOROUS 3.1 mg/dL (2.5-4.9); POTASSIUM 3.9 mmol/L (3.5-5.1)
[2017-02-08 07:51] LABS: FREE T4 1.24 ng/dl (0.76-1.46); THYROID STIM HORMONE (HS) 2.28 uIU/ml (0.358-4.75)
[2017-02-08 08:00] VITALS: BP 137/51
[2017-02-08 12:00] VITALS: BP 136/50
[2017-02-08 16:00] VITALS: BP 139/56
[2017-02-08 20:00] VITALS: BP 139/46
[2017-02-09] VITALS: BP 112/68
[2017-02-09 06:27] LABS: HEMATOCRIT 28.9 % (37.0-47.0); HEMOGLOBIN 8.9 g/dl (12.0-16.0); MEAN CELL VOLUME 92.6 fl (81.0-99.0); MEAN CORPUSCULAR HGB 28.5 pg (27.0-31.0); MEAN CORPUSCULAR HGB CONC 30.8 g/dl (33.0-37.0); MEAN PLATELET VOLUME 9.9 fl (9.6-12.3); PLATELET COUNT AUTOMATED 291 10*3/uL (130-400); RED BLOOD COUNT 3.12 10*6/uL (4.10-5.10); RED CELL DISTRI WIDTH 16.6 % (0-14.5); WHITE BLOOD COUNT 17.6 10*3/uL (4.8-10.8)
[2017-02-09 06:31] LABS: POTASSIUM 4.2 mmol/L (3.5-5.1)
[2017-02-09 07:00] LABS: LYMPHOCYTE # 0.9 10*3/uL (1.3-4.4); MONOCYTE # 0.5 10*3/uL (0.1-1.0); NEUTROPHIL # 16.2 10*3/uL (2.3-7.9); NEUTROPHILS 92 % (47-73); PLATELET SUFFICIENCY NORMAL (NORMAL); POLYCHROMASIA SLIGHT; TOTAL CELLS COUNTED 100 #CELLS
[2017-02-09 08:00] VITALS: BP 105/55
[2017-02-09 12:00] VITALS: BP 110/55
[2017-02-09 16:00] VITALS: BP 119/72
[2017-02-09 20:00] VITALS: BP 109/54
[2017-02-10] VITALS: BP 116/53
[2017-02-10 07:16] LABS: HEMOGLOBIN 9.1 g/dl (12.0-16.0); MEAN CELL VOLUME 90.6 fl (81.0-99.0); MEAN CORPUSCULAR HGB 28.4 pg (27.0-31.0); MEAN CORPUSCULAR HGB CONC 31.4 g/dl (33.0-37.0); MEAN PLATELET VOLUME 9.8 fl (9.6-12.3); PLATELET COUNT AUTOMATED 298 10*3/uL (130-400); RED CELL DISTRI WIDTH 17.1 % (0-14.5); WHITE BLOOD COUNT 22.7 10*3/uL (4.8-10.8)
[2017-02-10 07:58] LABS: POTASSIUM 4.7 mmol/L (3.5-5.1)
[2017-02-10 08:00] VITALS: BP 140/53
[2017-02-10 08:10] LABS: EOSINOPHIL # 0.7 10*3/uL (0-0.4); EOSINOPHILS 3 % (1-4); HYPOCHROMIA MODERATE; LYMPHOCYTE # 0.7 10*3/uL (1.3-4.4); MONOCYTE # 0.5 10*3/uL (0.1-1.0); NEUTROPHIL # 20.9 10*3/uL (2.3-7.9); NEUTROPHILS 92 % (47-73); PLATELET SUFFICIENCY NORMAL (NORMAL); POLYCHROMASIA SLIGHT; TOTAL CELLS COUNTED 100 #CELLS
[2017-02-10 12:00] VITALS: BP 137/51
[2017-02-10 16:00] VITALS: BP 114/81
[2017-02-10 20:00] VITALS: BP 130/54
[2017-02-11] VITALS: BP 135/44
[2017-02-11 05:53] LABS: HEMATOCRIT 28.4 % (37.0-47.0); HEMOGLOBIN 8.5 g/dl (12.0-16.0); MEAN CELL VOLUME 92.2 fl (81.0-99.0); MEAN CORPUSCULAR HGB 27.6 pg (27.0-31.0); MEAN CORPUSCULAR HGB CONC 29.9 g/dl (33.0-37.0); PLATELET COUNT AUTOMATED 247 10*3/uL (130-400); RED BLOOD COUNT 3.08 10*6/uL (4.10-5.10); WHITE BLOOD COUNT 14.8 10*3/uL (4.8-10.8)
[2017-02-11 05:54] LABS: POTASSIUM 5.1 mmol/L (3.5-5.1)
[2017-02-11 07:01] LABS: HYPOCHROMIA SLIGHT; LYMPHOCYTE # 0.1 10*3/uL (1.3-4.4); NEUTROPHIL # 14.7 10*3/uL (2.3-7.9); NEUTROPHILS 99 % (47-73); PLATELET SUFFICIENCY NORMAL (NORMAL); TOTAL CELLS COUNTED 100 #CELLS
[2017-02-11 08:00] VITALS: BP 129/58
[2017-02-11 12:00] VITALS: BP 145/56
[2017-02-11 16:00] VITALS: BP 148/60
[2017-02-11 20:00] VITALS: BP 116/50
[2017-02-12] VITALS: BP 124/45
[2017-02-12 06:51] LABS: HEMATOCRIT 31.6 % (37.0-47.0); HEMOGLOBIN 9.6 g/dl (12.0-16.0); MEAN CELL VOLUME 91.9 fl (81.0-99.0); MEAN CORPUSCULAR HGB 27.9 pg (27.0-31.0); MEAN CORPUSCULAR HGB CONC 30.4 g/dl (33.0-37.0); MEAN PLATELET VOLUME 10.3 fl (9.6-12.3); PLATELET COUNT AUTOMATED 300 10*3/uL (130-400); RED BLOOD COUNT 3.44 10*6/uL (4.10-5.10); WHITE BLOOD COUNT 15.1 10*3/uL (4.8-10.8)
[2017-02-12 07:11] LABS: LYMPHOCYTE # 0.6 10*3/uL (1.3-4.4); MONOCYTE # 0.3 10*3/uL (0.1-1.0); NEUTROPHIL # 14.2 10*3/uL (2.3-7.9); NEUTROPHILS 94 % (47-73); PLATELET SUFFICIENCY NORMAL (NORMAL); TOTAL CELLS COUNTED 100 #CELLS
[2017-02-12 07:26] LABS: ALBUMIN 2.6 gm/dl (3.1-4.5); BILIRUBIN, TOTAL 0.5 mg/dl (0.2-1.0); TOTAL PROTEIN 6.9 gm/dL (6.4-8.2)
[2017-02-12 08:00] VITALS: BP 106/30
[2017-02-12 12:00] VITALS: BP 110/40
[2017-02-12 16:00] VITALS: BP 126/52
[2017-02-12 20:00] VITALS: BP 98/51
[2017-02-13] VITALS: BP 143/50
[2017-02-13 08:00] VITALS: BP 156/46
[2017-02-13 12:00] VITALS: BP 124/98
[2017-02-13 16:00] VITALS: BP 91/76
[2017-02-13 20:00] VITALS: BP 147/48
[2017-02-14] VITALS: BP 123/43
[2017-02-14 08:00] VITALS: BP 134/66
[2017-02-14 12:00] VITALS: BP 156/68
[2017-02-14] MEDS ORDERED: PREDNISONE10 MG PO (15:22)
[2017-02-14] MEDS ORDERED: DOXYCYCLINE MO100 M1 PO (15:22)
[2017-02-14 16:00] VITALS: BP 140/74
== END 2017-02-14 18:35 | disposition other institution (70) | DRG 871 ==
LOC: ED 14:38 → 4E 18:30 → EDHOLD 18:30 → 4E 18:54
PROVIDERS: Hospitalist; Internal Medicine; Internal Medicine Hospice and Palliative Medicine; Internal Medicine Nephrology; Physician Assistant
DX: A41.9 Sepsis, unspecified organism (principal); J18.9 Pneumonia, unspecified organism; E43 Unspecified severe protein-calorie malnutrition; D68.59 Other primary thrombophilia; I13.0 Hypertensive heart and chronic kidney disease with heart failure and stage 1 through stage 4 chronic kidney disease, or unspecified chronic kidney disease; E11.22 Type 2 diabetes mellitus with diabetic chronic kidney disease; I50.32 Chronic diastolic (congestive) heart failure; L03.115 Cellulitis of right lower limb; J44.1 Chronic obstructive pulmonary disease with (acute) exacerbation; L03.116 Cellulitis of left lower limb; J44.0 Chronic obstructive pulmonary disease with (acute) lower respiratory infection; I48.92 Unspecified atrial flutter; Z68.43 Body mass index [BMI] 50.0-59.9, adult; I89.0 Lymphedema, not elsewhere classified; I87.2 Venous insufficiency (chronic) (peripheral); N18.3 Chronic kidney disease, stage 3 (moderate); E66.01 Morbid (severe) obesity due to excess calories; I48.91 Unspecified atrial fibrillation; D64.9 Anemia, unspecified; E78.5 Hyperlipidemia, unspecified; E03.9 Hypothyroidism, unspecified; K21.9 Gastro-esophageal reflux disease without esophagitis; F41.1 Generalized anxiety disorder; Z88.2 Allergy status to sulfonamides; Z90.49 Acquired absence of other specified parts of digestive tract; Z90.721 Acquired absence of ovaries, unilateral; Z82.3 Family history of stroke; Z82.49 Family history of ischemic heart disease and other diseases of the circulatory system; Z83.3 Family history of diabetes mellitus; Z79.01 Long term (current) use of anticoagulants; Z79.899 Other long term (current) drug therapy

== ENCOUNTER 2017-03-23 13:48 | Inpatient (IN) | payer MEDICARE ==
[~2017-03-23] VITALS: Ht 157.5 cm; Wt 444.5 kg
--- NOTE | ~2017-03-23 | PR ---
[place], [place] PROGRESS NOTE NAME: MAU MARTINEZ [facility] #: [id number] UNIT #: [id number] ROOM: 531 DOCTOR: JADA OrtizKRUNAL BIRTHDATE: [birth year] DOS: 03/24/2017 HISTORY OF PRESENT ILLNESS: This is a 72-year-old female who was admitted to the Emergency Department with complaints of increasing shortness of breath and edema of her hands and legs, this has been steadily worsening. She was also noted to have a dry cough and was admitted for congestive heart failure and possible superimposed pneumonia. She has a history of chronic lymphedema problems with recurrent cellulitis. PAST MEDICAL HISTORY: Significant for AFib and flutter, congestive heart failure, chronic kidney disease stage 3, COPD, generalized anxiety disorder, GERD, hyperlipidemia, hypertension, hypothyroidism, lymphedema of both lower extremities, morbid obesity. She is oxygen dependent, type 2 diabetes and venous stasis dermatitis. PAST SURGICAL HISTORY: She is status post cholecystectomy and tonsillectomy. SOCIAL HISTORY: Does not smoke or drink. FAMILY HISTORY: Remarkable for stroke in her father and cardiac disease in her father. ALLERGIES: SULFA. MEDICATIONS: Her medications from home are albuterol 2 puffs q.i.d. p.r.n., amiodarone 200 p.o. q.12h., Eliquis 5 mg p.o. b.i.d., Lipitor 20 p.o. daily, Bumex 1 mg p.o. daily, Cardizem 240 p.o. daily, Breo Ellipta 1 inhalation daily, glipizide 5 p.o. daily, levothyroxine 25 mcg p.o. daily, Tradjenta 5 mg p.o. daily, montelukast 10 mg p.o. daily, omeprazole 20 mg p.o. daily, potassium 10 mEq p.o. t.i.d. REVIEW OF SYSTEMS: She says her breathing is better. She still has a dry cough. She reports edema of her legs, chronic erythema, no pain with her legs. There is nothing draining on her legs or her feet that she is aware of. No nausea, vomiting, abdominal pains, or diarrhea. She does ambulate. OBJECTIVE: VITAL SIGNS: Temperature is 98.4, pulse is 74, respirations 18, blood pressure is 154/44. GENERAL: This is an elderly female, pleasant and cooperative, mildly tachypneic with minimal exertion and slightly pale to examination. HEENT: She does have a dry cough noted. I do not appreciate any JVD. Her extraocular movements are intact. Sclerae nonicteric. LUNGS: Have rales in the bases. CARDIOVASCULAR: S1, S2, regular rate and rhythm. ABDOMEN: Morbidly obese and soft. EXTREMITIES: She has bilateral chronic edema with stasis changes, nodular lymphatic changes from chronic indurated edema bilaterally. There is chronic erythema, it is not painful. There is really no calf tenderness. It is difficult to feel her pulses, but her feet are warm. Toes are warm and she has [place], [place] PROGRESS NOTE NAME: MAU MARTINEZ UNIT #: [id number] ROOM: 531 DOCTOR: KRUNAL ELIAS M.D. BIRTHDATE: [birth year] normal capillary refill. She has really no open areas at the present time that I could see. However, the edema and the nodular changes extend to close to the ankle area, but nothing is actually open presently. LABORATORY DATA: Her labs today shows sodium of 143, potassium of 3.4, chloride of 101, BUN of 8, creatinine is 1.23. Hemoglobin A1c is 6.4, magnesium is 1.9. LFTs are stable. Troponin is negative. BNP was 851, albumin is low at 2.5. Vitamin B12 is 320, TSH is high at 6.4. INR is 1.1. White count is 10.4, hemoglobin is 9.9, platelets are 324. Chest x-ray shows stable pulmonary vascular congestion and right hilar adenopathy. Currently, there is really no open areas that I could see, but she has severe lymphedema exacerbated by congestive heart failure. 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 She really would benefit from this type of service. She lives around this area. I was able to look up the names of some Lymphedema Clinic, there are two that she is interested in going to, phone numbers were given to the patient. There is one located in ____ hopefully the patient will be able to utilize this service once medically stabilized. At this point, she does have some dry areas and dry skin, we can use Aquaphor for it, but other than that, there is really no other dressings that I would recommend at the present time. She has multiple medical problems that are being managed by ____. Thank you for this consult. KRUNAL ELIAS MD CM:PNTRANS [id number] KRUNAL ELIAS M.D. 03/25/17 0845 interface
--- NOTE | ~2017-03-23 | PR ---
[place], [place] PROGRESS [id number] UN[facility] #: [id number] ROOM: 531 DOCTOR: CATHLEEN FRYE,THONY BIRTHDATE: [birth year] DOS: 03/26/2017 SUBJECTIVE: She feels fairly well. She had been urinating fair amount not all urine output has been measured. She has no chest pain or palpitations. Breathing comfortably. PHYSICAL EXAMINATION: GENERAL: She is alert, not tachypneic. VITAL SIGNS: Pulse is irregular. Blood pressure 114/56. NECK: JVP is normal. AJR is positive. She still has substantial edema of the lower extremities and has a lot of crackles in both lungs with reduced breath sounds. IMPRESSION: This patient had an acute on chronic diastolic heart failure. She had been diuresed fairly well initially, but yesterday. RECOMMENDATIONS: Please continue with IV bumetanide for couple of days while monitoring BUN and creatinine, which are essentially unchanged so far. She remained in normal sinus rhythm. THONY CONNOLLY MD CM:PNTRANS 0845 1 THONY CONNOLLY MD 03/27/17121 interface
--- NOTE | ~2017-03-23 | CON ---
[place], [place] REPORT OF CONSULTATION [id number] UN[facility] #: [id number] ROOM: 531 DOCTOR: THONY CONNOLLY MD BIRTHDATE: [birth year] DOS: 03/25/2017 HISTORY OF PRESENT ILLNESS: This is a 72-year-old -[place] woman with a history of extreme obesity, essential hypertension, hyperlipidemia, COPD, obstructive airway disease diagnosed by Dr. Graham and paroxysmal atrial fibrillation. She has had diastolic heart failure with acute exacerbations at times. In the past, she also has been noted to have atrial tachycardia, atrial flutter with ventricular rate of about 150 beats per minute. She has been diuresed aggressively in the past, but she has had recurrent admissions for heart failure. She does not smoke nor does she drink alcoholic beverages. Her dietary habits are not clear. HOME MEDICATIONS: Include ProAir HFA, Breo Ellipta, amiodarone 200 mg every 12 hours, Eliquis 5 mg b.i.d., atorvastatin 20 mg daily, bumetanide 1 mg daily, diltiazem 300 mg daily, glipizide 5 mg daily, levothyroxine 25 mcg daily, Tradjenta 5 mg daily, Singulair 10 mg daily, omeprazole 20 mg daily, KCl 10 mEq t.i.d. PHYSICAL EXAMINATION: GENERAL: Reveals a patient who is very pleasant, alert, and oriented. She is lying in recliner and has oxygen normally, is not tachypneic. VITAL SIGNS: Pulse is 80 regular, blood pressure 156/67. JVP is 77 cm with positive AJR, no bruits. CARDIAC: Auscultation revealed distant heart sounds. No obvious murmurs. EXTREMITIES: Her legs are very large with edema that is difficult to pit, indicating its chronicity. There is no sacral edema. RESPIRATORY: Breath sounds are diminished moderately probably partly due to restrictive lung disease because of extreme obesity and lots of crackles in both lungs. LABORATORY DATA: An ECG showed normal sinus rhythm as to the monitor strips. Creatinine is 1.28. BUN 11, potassium 3.6, sodium 141, hemoglobin is 9.2 g/dL. Chest x-ray was reviewed and shows pulmonary edema and cardiomegaly. She had an echocardiogram done in January of last year that was read by Dr. Graham. EF was estimated at 50-55%, no comments were made regarding diastolic dysfunction. IMPRESSION: This patient has acute on chronic diastolic heart failure. She still has a modest degree of decompensation and renal function is satisfactory. I would continue using higher dose of loop diuretic intravenously for further diuresis. RECOMMENDATIONS: Increase bumetanide to 2 mg b.i.d. IV. Discontinue diltiazem because of its propensity to cause lower extremity edema. Lisinopril 10 mg b.i.d. for blood pressure control. [place], [place] REPORT OF CONSULTATION NAME: MAU MARTINEZ UNIT #: [id number] ROOM: 531 DOCTOR: CATHLEEN FRYE,THONY BIRTHDATE: [birth year] I thank you for this consult. THONY CONNOLLY MD CM:CONSTR:REPORT OF CONSULTATION 31 03/26/17 1758 interface
[~2017-03-23 13:48] MED LIST changes: +BREO ELLIPTA 21 EACH INH; +DOXYCYCLINE MO100 M1 PO; +GLIPIZIDE5 M1 PO; +TYLENOL325 M1 PO
[2017-03-23 13:49] VITALS: BP 184/92
[2017-03-23 14:31] LABS: BASO # 0.1 10*3/uL (0.0-0.1); BASO % 0.8 % (0.0-1.0); EOS # 0.2 10*3/uL (0.0-0.4); EOS % 1.5 % (1.0-4.0); HEMATOCRIT 32.7 % (37.0-47.0); HEMOGLOBIN 9.8 g/dl (12.0-16.0); LYMPH # 1.3 10*3/uL (1.3-4.4); LYMPH % 12.8 % (27.0-41.0); MEAN CELL VOLUME 92.1 fl (81.0-99.0); MEAN CORPUSCULAR HGB 27.6 pg (27.0-31.0); MEAN PLATELET VOLUME 9.9 fl (9.6-12.3); MONO # 0.8 10*3/uL (0.1-1.0); MONO % 8.3 % (3.0-9.0); NEUT # 7.5 10*3/uL (2.3-7.9); NEUT % 75.9 % (47.0-73.0); PLATELET COUNT AUTOMATED 300 10*3/uL (130-400); RED BLOOD COUNT 3.55 10*6/uL (4.10-5.10); RED CELL DISTRI WIDTH 15.9 % (0-14.5); WHITE BLOOD COUNT 9.9 10*3/uL (4.8-10.8)
[2017-03-23 14:41] LABS: ACT PARTIAL THROMBO TIME 24.1 SECONDS (20.8-31.5); INTERNATIONAL NORM RATIO 1.1 (2.0-3.5)
[2017-03-23 15:05] LABS: ALBUMIN 2.5 gm/dl (3.1-4.5); ALKALINE PHOSPHATASE 92 U/L (45-117); BUN 8 mg/dl (7-24); CHLORIDE 104 mmol/L (98-107); CREATININE 0.99 mg/dL (0.55-1.02); MAGNESIUM 1.9 mg/dL (1.5-2.1); SGOT/AST 13 IU/L (3-35); SGPT/ALT 10 U/L (12-78); SODIUM 143 mmol/L (136-145); TOTAL PROTEIN 5.9 gm/dL (6.4-8.2)
[2017-03-23 15:06] LABS: TROPONIN I < 0.015 ng/ml (<0.045)
[2017-03-23 17:00] VITALS: BP 124/74
--- NOTE | 2017-03-23 17:00 | NUR ---
A 72, admitted to , under the services of YAMILKA Starkey DO with a diagnosis of CHF. Chief complaint is SOB. Patient arrived via stretcher from ER. Monitor applied. Initial assessment completed. Vital signs taken and recorded. YAMILKA STARKEY DO notified of admission to the unit. Orders received. See assessment for past medical history, medications and allergies. Patient and/or family oriented to unit. [facility] Clothing/patient valuable form completed. NELIA FITCH
[2017-03-23] MEDS ORDERED: K-TAB10 MEQ PO (17:19)
--- NOTE | 2017-03-23 17:33 | NUR ---
MED REQ COMPLETED PER LIST FAXED FROM [facility].
[2017-03-23 20:20] VITALS: BP 147/60
--- NOTE | 2017-03-24 00:51 | NUR ---
24 HR chart check completed.
--- NOTE | 2017-03-24 02:38 | NUR ---
CONTACTED [facility] TO RETIME VANCOMYCIN.
--- NOTE | 2017-03-24 03:55 | NUR ---
CONTACTED DR. HERNANDEZ BECAUSE PATIENT WOKE UP C/O ITCHY LEGS. IV MED WAS STOPPED PER PHYSICIAN ORDER AND BENDADRYL WAS ORDERED AND GIVEN. IV TO BE RESTARTED 30-60 MINS. AFTER BENADRYL ADMINISTERED. WILL MONITOR.
[2017-03-24 06:29] LABS: BASO # 0.1 10*3/uL (0.0-0.1); BASO % 0.5 % (0.0-1.0); EOS # 0.2 10*3/uL (0.0-0.4); EOS % 1.8 % (1.0-4.0); HEMATOCRIT 33.6 % (37.0-47.0); HEMOGLOBIN 9.9 g/dl (12.0-16.0); LYMPH # 0.9 10*3/uL (1.3-4.4); LYMPH % 8.8 % (27.0-41.0); MEAN CELL VOLUME 93.1 fl (81.0-99.0); MEAN CORPUSCULAR HGB 27.4 pg (27.0-31.0); MEAN CORPUSCULAR HGB CONC 29.5 g/dl (33.0-37.0); MEAN PLATELET VOLUME 9.7 fl (9.6-12.3); MONO # 0.9 10*3/uL (0.1-1.0); MONO % 8.2 % (3.0-9.0); NEUT # 8.4 10*3/uL (2.3-7.9); PLATELET COUNT AUTOMATED 324 10*3/uL (130-400); RED BLOOD COUNT 3.61 10*6/uL (4.10-5.10); RED CELL DISTRI WIDTH 15.9 % (0-14.5); WHITE BLOOD COUNT 10.4 10*3/uL (4.8-10.8)
--- NOTE | 2017-03-24 06:36 | NUR ---
SPOKE WITH DR. HERNANDEZ REGARDING LOSS OF IV SITE AND MULTIPLE FAILED ATTEMPTS. HE SAID HE WILL TALK TO THE DAY TEAM ABOUT THE NEED FOR A PICC LINE BECAUSE HE WAS NOT SURE HOW LONG SHE WILL BE IN. WILL PASS ON TO DAY SHIFT NURSE.
[2017-03-24 06:58] LABS: CREATININE 1.23 mg/dL (0.55-1.02); MAGNESIUM 1.9 mg/dL (1.5-2.1); PHOSPHOROUS 3.5 mg/dL (2.5-4.9); POTASSIUM 3.4 mmol/L (3.5-5.1)
[2017-03-24 07:04] LABS: THYROID STIM HORMONE (HS) 6.4 uIU/ml (0.358-4.75)
[2017-03-24 07:07] LABS: VITAMIN D, 25-HYDROXY 35.2 ng/mL (30-100)
[2017-03-24 08:00] VITALS: BP 150/55
--- NOTE | 2017-03-24 08:02 | NUR ---
BEIS OFFICE NOTIFIED OF CONSULT
--- NOTE | 2017-03-24 09:00 | NUR ---
Sales Account Manager in to talk to patient. Patient states lives at home with alone. There are no steps in the home. Physician: john paul, [facility] health services: [facility] and [facility]ative care, passport services Patient's level of ADLs: MODERATE ASSIST Patient has working utilities: all working DME: walker, home oxygen, portable tank and nebulizer Follow-up physician's appointment after d/c: will be made by hospitalist nurse director upon discharge Does patient want to access PORTAL?: no Discharge plan discussed with patient, patient lives in an apartment alone, she has moderate difficulty getting around, she has home oxygen and portable tanks, she has community home health, pallative care and passport services, she has meals on wheels, discharge plan was discussed with patient and she refused a SNf before she was even asked about one, she stated she had been to SNF and would never go back, that she has been there before and that she is going home, case management will follow for any needs. JUSTIN GUERRA
--- NOTE | 2017-03-24 10:26 | NUR ---
PHYSICAL THERAPY PAtient with Doctors at this time. Thank you for this referral. Sloane Hopper,PT
--- NOTE | 2017-03-24 11:35 | NUR ---
PHYSICAL THERAPY PAtient at surgery. Thank you for this referral. socorro Hopper,PT
--- NOTE | 2017-03-24 11:59 | NUR ---
SPOKE WITH DR ELIAS ON FLOOR. PER DR ELIAS, PT DOES NOT FOLLOW HER IN WOUND [facility]IC. ASKED ME TO CHECK WITH DR ROBINS TO SEE IF THEY WANT DR ROD CONSULTED. DR ROBINS ASKED. NO FURTHER ORDERS FOR CONSULTS AT THIS TIME
[2017-03-24 12:00] VITALS: BP 129/60
--- NOTE | 2017-03-24 12:45 | NUR ---
PT HAD 4-5 BEAT RUN V TACH. THEN BACK TO NSR. DR Kimberly ESPINOZA NOTIFIED
--- NOTE | 2017-03-24 14:30 | NUR ---
DR ESPINOZA NOTIFIED OF 2ND 5 BEAT RUN OF V TACH.
--- NOTE | 2017-03-24 15:31 | NUR ---
DR BABIN OFFICE NOTIFIED OF CONSULT( SPOKE WITH PRIETO)
[2017-03-24 15:40] LABS: MAGNESIUM 1.8 mg/dL (1.5-2.1); PHOSPHOROUS 3.3 mg/dL (2.5-4.9); TROPONIN I < 0.015 ng/ml (<0.045)
[2017-03-24 16:00] VITALS: BP 145/44
--- NOTE | 2017-03-24 16:15 | NUR ---
DR CONNOLLY NOTIFIED OF CONSULT
[2017-03-24 20:00] VITALS: BP 123/45
[2017-03-25] VITALS: BP 126/42
--- NOTE | 2017-03-25 04:41 | NUR ---
[facility] WAS FIRST PORTION OF SHIFT. REFER TO PAPER MAR AND WRITTEN PROGRESS NOTES.
[2017-03-25 07:28] LABS: BASO # 0.1 10*3/uL (0.0-0.1); BASO % 0.4 % (0.0-1.0); EOS # 0.2 10*3/uL (0.0-0.4); EOS % 1.4 % (1.0-4.0); HEMATOCRIT 30.1 % (37.0-47.0); HEMOGLOBIN 9.2 g/dl (12.0-16.0); LYMPH # 0.9 10*3/uL (1.3-4.4); LYMPH % 7.9 % (27.0-41.0); MEAN CELL VOLUME 91.2 fl (81.0-99.0); MEAN CORPUSCULAR HGB 27.9 pg (27.0-31.0); MEAN CORPUSCULAR HGB CONC 30.6 g/dl (33.0-37.0); MEAN PLATELET VOLUME 10.2 fl (9.6-12.3); MONO # 0.7 10*3/uL (0.1-1.0); MONO % 6.3 % (3.0-9.0); NEUT # 9.3 10*3/uL (2.3-7.9); NEUT % 83.2 % (47.0-73.0); PLATELET COUNT AUTOMATED 292 10*3/uL (130-400); RED CELL DISTRI WIDTH 16.4 % (0-14.5); WHITE BLOOD COUNT 11.2 10*3/uL (4.8-10.8)
[2017-03-25 07:33] LABS: CREATININE 1.28 mg/dL (0.55-1.02); MAGNESIUM 1.6 mg/dL (1.5-2.1); POTASSIUM 3.6 mmol/L (3.5-5.1)
[2017-03-25 07:36] LABS: FREE T4 1.51 ng/dl (0.76-1.46)
[2017-03-25 08:00] VITALS: BP 125/34
--- NOTE | 2017-03-25 09:00 | NUR ---
case management visits with patient, patient states she will be going back home and resume all of her services when medically stable, patient is adement that she will not go to a SNf, case management will follow
--- NOTE | 2017-03-25 09:41 | NUR ---
PHYSICAL THERAPY PAtient deep sleeping through IV beeping and PT voice. will attempt later this date. Thank you for this referral. Sloane Hopper,PT
[2017-03-25 12:00] VITALS: BP 139/73
--- NOTE | 2017-03-25 15:33 | NUR ---
PHYSICAL THERAPY PAtient requests no PT this date. Thank you for this referral. socorro Hopper,PT
[2017-03-25 16:00] VITALS: BP 156/67
[2017-03-25 17:22] LABS: BILIRUBIN NEGATIVE (NEGATIVE); BLOOD NEGATIVE (NEGATIVE); CLARITY SL CLOUDY (CLEAR); COLOR YELLOW (YELLOW); GLUCOSE NEGATIVE (NEGATIVE); KETONE NEGATIVE (NEGATIVE); LEUKO ESTERASE NEGATIVE (NEGATIVE); NITRITE NEGATIVE (NEGATIVE); PH 7.5 (5.0-9.0); SPECIFIC GRAVITY 1.015 (1.005-1.030); UROBILINOGEN 0.2 E.U./dl (0.2-1.0)
[2017-03-25 17:29] LABS: BACTERIA TRACE; EPITHELIAL CELLS 16-20; MUCOUS TRACE
[2017-03-25 20:00] VITALS: BP 150/46
--- NOTE | 2017-03-25 21:00 | NUR ---
REMAINS IN RECLINER, WATCHING TV. RESPIRATIONS EASY. LUNGS DIMINISHED WITH PB RALES. PULSE OX 99% 2L. CLAIMS INFREQUENT COUGH, NONE NOTED. GENERALIZED EDEMA VS OBESITY. BLE GROSSLY EDEMATOUS, ENCOURAGED TO ELEVATE. CALL LIGHT WITHIN REACH. NO VOICED COMPLAINTS
[2017-03-26] VITALS: BP 140/72
--- NOTE | 2017-03-26 | NUR ---
SLEEPING IN RECLINER, NO DISTRESS NOTED. RESPIRATIONS EASY. VSS. CALL LIGHT WITHIN REACH
--- NOTE | 2017-03-26 03:00 | NUR ---
SLEEPING IN RECLINER. O2 IN USE. CALL LIGHT WITHIN REACH
--- NOTE | 2017-03-26 07:00 | NUR ---
LABS DRAWN VIA PICC. FLUSHED PER POLICY
[2017-03-26 07:57] LABS: CREATININE 1.3 mg/dL (0.55-1.02); POTASSIUM 3.7 mmol/L (3.5-5.1)
[2017-03-26 08:00] VITALS: BP 114/56
--- NOTE | 2017-03-26 08:00 | NUR ---
PT RESTING IN CHAIR, NO DISTRESS NOTED. SEE SHIFT ASSESSMENT. WILL MONITOR
[2017-03-26] MEDS ORDERED: KLOR-CON M2020 ME1 PO (11:07)
[2017-03-26] MEDS ORDERED: BUMETANIDE1 MG PO (11:07)
[2017-03-26] MEDS ORDERED: DOXYCYCLINE100 M3 PO (11:07)
[2017-03-26] MEDS ORDERED: LISINOPRIL10 M1 PO (11:07)
[2017-03-26 12:00] VITALS: BP 150/70
--- NOTE | 2017-03-26 12:00 | NUR ---
PT AND PT SISTER WANTING PT TO GO HOME VIA CAB WITH NO O2 . PT AND PT SISTER INSTRUCTED THAT THIS IS NOT A GOOD IDEA. ATTEMPTED TO GET PT PORTABLE O2 TANK , AND UNSUCCESSFUL. PT INSTRUCTED THAT SHE WILL TAKEN HOME BY AMBULANCE. PT SISTER DAXA NOTIFIED OF PT GOING HOME VIA AMBULANCE. PT ALSO SAYS SHE HAS NO MEDICATIONS AT HOME. DR ROBINS NOTIFIED AND SCRIPTS GIVEN TO PT .
--- NOTE | 2017-03-26 15:31 | NUR ---
Discharge instructions reviewed with patient/family. Patient receptive and verbalizes understanding. Follow-up care arranged. Written instructions given to patient/family. NELIA FITCH
--- NOTE | 2017-03-29 09:03 | NUR ---
Late note: Patient discharged to home on 03/26/17 to [facility] home [facility] via [facility]. Received order, faxed clinicals.
== END 2017-03-26 15:31 | disposition home or self-care (01) | DRG 177 ==
LOC: ED 13:48 → 5E 15:58 → EDHOLD 15:58 → 5E 16:35
PROVIDERS: Family Medicine; Internal Medicine; Internal Medicine Nephrology; ADMIT Internal Medicine
PROC: 02HV33Z Insertion of Infusion Device into Superior Vena Cava, Percutaneous Approach (ICD-10-PCS; principal; 2017-03-24)
DX: J69.0 Pneumonitis due to inhalation of food and vomit (principal); E43 Unspecified severe protein-calorie malnutrition; I50.43 Acute on chronic combined systolic (congestive) and diastolic (congestive) heart failure; E11.22 Type 2 diabetes mellitus with diabetic chronic kidney disease; I48.92 Unspecified atrial flutter; Z99.81 Dependence on supplemental oxygen; I13.0 Hypertensive heart and chronic kidney disease with heart failure and stage 1 through stage 4 chronic kidney disease, or unspecified chronic kidney disease; Z68.41 Body mass index [BMI] 40.0-44.9, adult; Y95 Nosocomial condition; J44.9 Chronic obstructive pulmonary disease, unspecified; N18.3 Chronic kidney disease, stage 3 (moderate); E66.01 Morbid (severe) obesity due to excess calories; S91.309A Unspecified open wound, unspecified foot, initial encounter; F41.1 Generalized anxiety disorder; E78.5 Hyperlipidemia, unspecified; K21.9 Gastro-esophageal reflux disease without esophagitis; D64.9 Anemia, unspecified; D72.810 Lymphocytopenia; E03.9 Hypothyroidism, unspecified; I87.2 Venous insufficiency (chronic) (peripheral); I89.0 Lymphedema, not elsewhere classified; Z90.49 Acquired absence of other specified parts of digestive tract; Z82.3 Family history of stroke; Z79.51 Long term (current) use of inhaled steroids; Z79.899 Other long term (current) drug therapy; Z88.2 Allergy status to sulfonamides

== ENCOUNTER 2017-03-31 13:41 | Inpatient (IN) | payer MEDICARE ==
[~2017-03-31] VITALS: Ht 157 cm; Wt 143.6 kg
--- NOTE | ~2017-03-31 | CON ---
[place], [place] REPORT OF CONSULTATION NAME: [id number] UNIT #: [id number] ROOM: 523 DOCTOR: LESLY SANTOS DO BIRTHDATE: [birth year] DOS: HISTORY OF PRESENT ILLNESS: The patient is a 72-year-old female who presented with chief complaint of shortness of breath from [facility]. The patient states that her shortness of breath was worsening yesterday. She usually uses 3 liters oxygen at home. She was short of breath despite 3 liters oxygen. She increased her oxygen to 4 liters. The patient also notes that she has cough, but does not have sputum production. She says that she is short of breath and unable to lie flat and when she tries to lie flat, her shortness of breath worsens. She also says that her lower extremities have been swollen and which is chronic for her. She has a history of congestive heart failure. She was supposed to see Dr. Hood yesterday at his office, but because of short of breath, she was brought to the ED from [facility]. The patient denies any fever, chills, nausea, vomiting, diarrhea, chest pain or any other complaints. PAST MEDICAL HISTORY: History of CHF, CKD stage 3, COPD, generalized anxiety disorder, GERD, hyperlipidemia, essential hypertension, hypothyroidism, lymphedema of lower extremities, chronic morbid obesity, protein calorie malnutrition, type 2 diabetes, venous stasis dermatitis. PAST SURGICAL HISTORY: History of cholecystectomy, tonsillectomy and right ovary removed. SOCIAL HISTORY: Does not smoke, drink, or use alcohol. FAMILY HISTORY: Mother at age 92 due to old age. Father at age 49 due to stroke and coronary artery disease. PHYSICAL EXAMINATION: VITAL SIGNS: Temperature 98.5, pulse 82, respirations 20, blood pressure 118/38. GENERAL: Well-developed, well-nourished, no acute distress. HEENT: Normocephalic. Pupils equal and reactive to light and accommodation. Nares patent. Dry oral mucosa. Throat, no inflammation or exudate. LUNGS: Diminished breath sounds bilaterally. No respiratory distress, no wheezing, no rhonchi. CARDIOVASCULAR: Heart rate regular and rhythm regular without any murmur, gallops or rubs. ABDOMEN: Nondistended, nontender, positive bowel sounds. EXTREMITIES: Erythema to bilateral lower extremities and 4+ edema present. Mild increased warmth. NEUROLOGIC: The patient is alert, oriented. No focal neurologic deficit. Cranial nerves 2-12 intact. PSYCHOLOGIC: Pleasant, cooperative, good historian. Normal affect and mood. LABORATORY DATA: White cell count of 10.6, hemoglobin 9.4, platelet count 268 noted on 04/01/2017. White cell count of 13.5, hemoglobin of 10.5 and platelet count of 309 noted on 03/31/2017. Chemistry: BUN is 15, creatinine is 1.15, glucose is 88 noted on 04/01/2017. BUN of 18, creatinine of 1.33 and glucose of [place], [place] REPORT OF CONSULTATION NAME: MAU MARTINEZ UNIT #: [id number] ROOM: 523 DOCTOR: LESLY SANTOS DO BIRTHDATE: [birth year] 85 noted on 03/31/2017. Blood cultures are pending. Chest x-ray on 03/31/2017 showed multilobar pneumonia with findings greater in the right upper lobe and left lower lobe superimposed chronic changes and cardiomegaly. Follow up to document resolution. ASSESSMENT AND PLAN: Please refer to Dr. Ruby's note for further impression and plan. Thank you for the consult. LESLY SANTOS DO EVELIN RUBY MD CM:CONSTR:REPORT OF CONSULTATION 1309 04/01/17 1442 interface
--- NOTE | ~2017-03-31 | WRIGHTHP ---
[place], [place] PATIENT HISTORY AND PHYSICAL EXAM NAME: MAU MARTINEZ [facility] #: [id number] UNIT #: [id number] ROOM: 523 DOCTOR: SE STOUT MD BIRTHDATE: [birth year] DOS: 03/31/2017 HISTORY OF PRESENT ILLNESS: This patient is 72 years old. The patient lives at home, states that she has been sick for the last few days, increasingly tired with a slight cough and shortness of breath, so she decided that she would come to the emergency room. She denies having any chest pains or palpitations. Cough is mostly dry, is unable to cough up any mucus. She does not have any abdominal pain, nausea, any emesis, any fever or chills. PAST MEDICAL HISTORY: 1. Adult failure to thrive. She is homebound and gets help from aides who come in every day with help with her daily care. 2. Recent hospitalization for hospital-acquired pneumonia on 03/26/2017. 3. Benign hypertension. 4. Hyperlipidemia. 5. Diabetes mellitus. 6. Hypothyroidism. 7. Gastroesophageal reflux disease. 8. Chronic atrial fibrillation. 9. Chronic venous stasis dermatitis with elephantiasis. 10. COPD. 11. Chronic respiratory failure, oxygen dependent. 12. History of lymphedema. 13. Generalized anxiety disorder. MEDICATIONS: ProAir HFA, Breo Ellipta daily, amiodarone 200 b.i.d., Eliquis 5 b.i.d., atorvastatin 20 daily, Bumex 1 mg b.i.d., doxycycline 500 b.i.d., glipizide 5 daily, levothyroxine 25 mcg daily, Tradjenta 5 daily, lisinopril 10 b.i.d., Singulair 10 daily, omeprazole 20 daily, potassium 20 t.i.d. SOCIAL HISTORY: Nonsmoker, lives at home alone. PHYSICAL EXAMINATION: VITAL SIGNS: Graphic trend shows a pressure 155/51, pulse of 80, respirations 24, temperature 97.5. LUNGS: Diminished breath sounds, few scattered wheezes heard bilaterally. CARDIOVASCULAR: Irregular heart rate controlled in the 70s. ABDOMEN: Obese, soft. EXTREMITIES: Chronically swollen with significant dryness and elephantiasis changes noted. LABORATORY DATA: White cell count is 13.5, hemoglobin 10.5, hematocrit 34.4, platelets 209. Lactic acid 1.2. Comprehensive glucose 87, BUN 13, creatinine 1.33. Sodium 143, potassium 3.4, chloride 106, bicarbonate 29. Chest x-ray shows multilobar pneumonia. ASSESSMENT AND PLAN: 1. The patient was just discharged from the hospital on March 26, who presents on March 31 with complaints of increasing shortness of breath. At this time, she was diagnosed with multilobar pneumonia, possible Gram-negative. [place], [place] PATIENT HISTORY AND PHYSICAL EXAM NAME: MAU MARTINEZ UNIT #: [id number] ROOM: 523 DOCTOR: ARGELIA FRYE,SE BIRTHDATE: [birth year] Because this is one of the multiple admissions, we will go ahead and do a CT of the chest to rule out other pathology. Antibiotics have already been started by Dr. Hood yesterday, breathing treatments will be added. 2. History of chronic diastolic CHF, already on diuretics. 3. Hypokalemia. Potassium supplementation will be ordered. 4. Chronic dryness of the lower legs, add ammonium lactate solution. SE STOUT MD CM:HISPHYS:PATIENT HISTORY AND PHYSICAL EXAMINATION 8 09 SE STOUT MD 04/01/17 1011 interface
--- NOTE | ~2017-03-31 | PR ---
[place], [place] PROGRESS NOTE NAME: MAU MARTINEZ [facility] #: [id number] UNIT #: [id number] ROOM: 523 DOCTOR: FLORI FERNANDES MD,EVELIN BIRTHDATE: [birth year] DOS: 04/04/2017 SUBJECTIVE: She has been noted comfortable at this time without any distress. The patient's shortness of breath has been improving progressively. There were no symptoms of chest pain. She was continued on diuretic therapy as well. OBJECTIVE: VITAL SIGNS: For the patient, which have been recorded showed the temperature noted as normal, respiratory rate 20, heart rate 76, blood pressure 132/48. Pulse oxygen saturation of the patient recorded as 96% on 2 liters nasal cannula. HEENT: Showed no new change. NECK: Supple. CARDIOVASCULAR: S1, S2 audible. LUNGS: The patient was noted with [id number] decreased breath sounds bilaterally. ABDOMEN: Soft, nontender. EXTREMITIES: She has chronic lymphedema. LABORATORY DATA: BMP today: BUN 30, creatinine 1.34, glucose 231, CO2 of 38. IMPRESSION: 1. Stable respiratory status ____ resolving acute congestive heart failure, diastolic dysfunction, chronic hypercapnic hypoxic respiratory failure. 2. Chronic lymphedema of lower extremities. 3. Metabolic alkalosis, combination of diuretics and chronic hypercarbia. 4. Morbid obesity. 5. Obstructive sleep apnea disorder, noncompliant with the treatment. PLAN OF MANAGEMENT: Transfer the patient to the nursing facility as advised. Other treatment changes as per order of the primary care attending. Usual care. EVELIN RUBY MD CM:PNTRANS [id number] EVELIN FERNANDES MD 04/05/17 0332 interface
--- NOTE | ~2017-03-31 | PR ---
[place], [place] PROGRESS NOTE NAME: MAU MARTINEZ [facility] #: [id number] UNIT #: [id number] ROOM: 523 DOCTOR: FLORI FERNANDES MD,EVELIN BIRTHDATE: [birth year] DOS: 04/02/2017 SUBJECTIVE: She has been noted comfortable with reduction of symptoms of shortness of breath. Denies symptoms of chest pain. Denies symptoms of abdominal pain. OBJECTIVE: VITAL SIGNS: For the patient which has been recorded shows normal temperature, respiratory rate 20, heart rate 80, blood pressure 131/48-114/50. Pulse oxygen saturation of the patient was noted as 99% saturation on 3 liters nasal cannula. HEENT: No acute change. NECK: Supple. CARDIOVASCULAR: S1, S2 audible. LUNGS: The patient was noted with scattered crackles. There was no wheezing. ABDOMEN: Soft, nontender. LABORATORY DATA: CBC of the patient that was done this morning shows hemoglobin 10, hematocrit 34.2, platelet count was normal. CMP this morning noted BUN 15, creatinine 1.22. Chest x-ray, 2-view, shows reduction of previously noted interstitial edema and/or infiltration of the lungs bilaterally. IMPRESSION: 1. The patient with acute congestive heart failure. The patient's diastolic dysfunction is most likely abnormality. There was no clinical radiologic evidence of pneumonia at this time would be convinced. 2. Acute exacerbation of bronchial asthma as well. PLAN OF TREATMENT: Discontinuation of the antibiotics. Continuation of the corticosteroids. Continue diuretic therapy, which is already in progress. Usual care, other supportive plan of management and care. Additional treatment changes will be done based on the progression of the illness. EVELIN RUBY MD CM:PNTRANS [phone] EVELIN FERNANDES MD 04/03/172235 interface
--- NOTE | ~2017-03-31 | PR ---
[place], [place] PROGRESS NOTE NAME: MAU MARTINEZ UNIT #: [id number] ROOM: 523 DOCTOR: EVELIN PEREZ MD BIRTHDATE: [birth year] DOS: 04/03/2017 PULMONARY FOLLOWUP NOTE SUBJECTIVE: The patient has been noted comfortable at this time without any distress. The patient has been noted without any symptoms of chest pain or cough. Shortness of breath has been improving. OBJECTIVE: VITAL SIGNS: The patient showed normal temperature, respiratory rate 20, heart rate 88, blood pressure 138/49. Pulse oxygen saturation on 2 L nasal cannula 96% saturation recorded. HEENT: Examination shows no acute change. NECK: Supple. CARDIOVASCULAR: S1, S2 audible. LUNGS: Noted clear. ABDOMEN: Soft, obese, nontender. EXTREMITIES: Chronic lymphedema. LABORATORY DATA: CBC: WBC count 13.9, hemoglobin 9.6, hematocrit 33.1, platelet count was normal. CMP this morning, BUN 20, creatinine 1.18. CO2 was 34. IMPRESSION: The patient with acute congestive heart failure with chronic hypoxic respiratory failure secondary to fluid overload with congestive heart failure, diastolic dysfunction. There was no evidence of acute pneumonia, chronic lymphedema of lower extremity, metabolic alkalosis secondary to hypercarbia, and use of the diuretic therapy. PLAN OF MANAGEMENT: The patient will be continued with current plan of treatment as in progress without any changes. She could be transferred back to the group home facility for further continued medical management ____ with diuretics. Oxygen supplementation, continued maintaining saturation 92% or greater. Usual care, other supportive plan of therapy and care. Titrate oxygen to maintain a saturation of 92% or greater. [place], [place] PROGRESS NOTE NAME: MAU MARTINEZ UNIT #: [id number] ROOM: 523 DOCTOR: EVELIN PEREZ MD BIRTHDATE: [birth year] EVELIN RUBY MD CM:PNTRANS [id number] EVELIN FERNANDES MD 04/04/17 0635 interface
--- NOTE | ~2017-03-31 | CON ---
[place], [place] REPORT OF CONSULTATION NAME: MAU MARTINEZ [facility] #: [id number] UNIT #: [id number] ROOM: 523 DOCTOR: EVELIN PEREZ MD BIRTHDATE: [birth year] DOS: 04/01/2017 PULMONARY CONSULTATION This is an addendum for pulmonary consultation for this date of service. The patient was seen personally for this patient with [id number] encounter. Physical examination performed. History was confirmed. The changes in the medical management or recommendations as well as assessment was personally made for the patient today's consultation. REASON FOR CONSULTATION: Assess the patient for acute pneumonia. HISTORY OF PRESENT ILLNESS: This is a 72-year-old female who has been known to me with multiple medical problems, recurrent hospitalization. She is currently a resident of a nursing facility. She has been brought to the hospital. The patient admitted under care of Dr. Alla Iglesias on 03/31/2017. The patient reported symptoms of cough with some sputum expectoration, which has been noted intermittently. The patient was also noted symptoms of shortness of breath as well. The cough has been noted mostly dry with only small amount of sputum expectoration at times. Denies symptoms of chest pain, hemoptysis, wheezing. She has been admitted to the hospital under the care of Dr. Alla Iglesias today for further medical management of the current problems. The patient had a chest x-ray done on 03/31/2017 was described with finding of bilateral infiltration as acute pneumonia. The patient has been currently treated in Intensive Care Unit. Denies any symptoms of hemoptysis. The patient stated partial improvement in symptoms from yesterday. Review of system for this patient has been performed by the infertility medical assistant. Past history, social history, family history, surgical history and other refer to my past consultation, which was done on her previous admission in this hospitalization on 01/24/2017. Additional consultation for this patient's past family, social, surgical history was dictated by the infertility medical assistant. REVIEW OF SYSTEMS: Also dictated by the infertility medical assistant. PHYSICAL EXAMINATION: GENERAL: A 72-year-old female who has been currently comfortably resting on the bed for the patient without any acute distress. The patient's height was noted 5 feet 2 inches, weight of 316 pounds, BMI 58.2. VITAL SIGNS: Recorded as a normal temperature for this patient. The respiratory rate was recorded as 20-22, heart rate of 96-83, blood pressure 131/44-151/51. Intake is 490, the output 300 mL, recorded. Pulse oxygen saturation on 3 liters nasal cannula 96% saturation. HEENT: Shows chronic severe obesity. NECK: Short and obese. Decreased posterior pharyngeal space. CARDIOVASCULAR: S1, S2 is audible. LUNGS: The patient was noted scattered crackles of the lungs for this patient. ABDOMEN: Soft. Severely obese. Bowel sounds present. EXTREMITIES: Shows chronic severe changes of the lower extremity with chronic lymphedema with severe dryness of the skin. CENTRAL NERVOUS SYSTEM: The patient has no focal deficit. Cranial nerves 2-12 [place], [place] REPORT OF CONSULTATION NAME: MAU MARTINEZ UNIT #: [id number] ROOM: 523 DOCTOR: FLORI FERNANDES MD,[facility] BIRTHDATE: [birth year] intact. MUSCULOSKELETAL: No acute deformities. SKIN: Chronic changes of the skin as previously ordered. LABORATORY DATA: The lactic acid was noted 1.2 on 03/31/2017. CBC on 03/31/2017 showed WBC count 13.5, hemoglobin 10.5, hematocrit 35.4, platelet count 309,000. The lactic acid was repeated again 03/31 was normal. CMP of the patient is 03/31, BUN 18, creatinine 1.33. The potassium was 3.4. CBC that was done for the patient this morning: WBC count was normal, hemoglobin 9.4, hematocrit 31.4, platelet count 268,000. BMP: BUN 15, creatinine 1.55. The remaining BMP was normal. The chest x-ray of the patient, which was reviewed, done in the Emergency Room on 03/31/2017 shows evidence of patchy area of infiltration and/or interstitial edema noted in the lungs bilaterally, chronic pulmonary artery enlargement, hilar enlargement noted in the right lung, unchanged. The only 1-view x-ray was done. The chest x-ray was compared with the findings of 03/2017. The pronounced infiltration and/or interstitial markings appeared to be new as compared to that chest x-ray. There was no visible gross pleural fluid. Cardiomegaly was also seen. IMPRESSION: 1. The patient who has been admitted to the hospital, history of chronic hypoxic respiratory failure with history of bronchial asthma, currently presented to the hospital because of increased respiratory symptoms of coughing, shortness of breath. The current chest x-ray findings would be considered possibly with acute bronchitis, questionable pneumonia for this patient and/or interstitial edema for this patient and other noninfectious causes such as area of subsegmental atelectasis or infiltration. 2. The patient with chronic anemia as well. 3. Chronic lymphedema of the lower extremities as well. PLAN OF MANAGEMENT: The patient has been empirically started on antibiotics with coverage of the current atypical infection. She was also getting the Solu-Medrol 80 mg q.8h. very high dose, which needs to be decreased to 40 mg b.i.d. because of absence of any wheezing. Repeat PA and lateral chest x-ray with more clear identification. The ____ would be considered to help improve the respiratory symptoms. The patient will be given Lasix this morning with monitoring of her output. Repeat chest x-ray in the morning ____ finding would not be consistent with acute pneumonia. Mild hypokalemia for this patient was also noted, potassium 3.4, which was already supplemented. Usual care, other supportive plan of therapy, care and management plan. Sputum for Gram stain, culture will be done for this patient. The patient is able to expectorate any sputum, most of the cough has been noted essentially dry at this time. Thank you for allowing me to participate in the care of this patient. [place], [place] REPORT OF CONSULTATION NAME: MAU MARTINEZ UNIT #: [id number] ROOM: 523 DOCTOR: EVELIN PEREZ MD BIRTHDATE: [birth year] EVELIN RUBY MD CM:CONSTR:REPORT OF CONSULTATION 1105 04/02/17 0644 interface
--- NOTE | ~2017-03-31 | PR ---
[place], [place] PROGRESS NOTE NAME: MAU MARTINEZ [facility] #: [id number] UNIT #: [id number] ROOM: 523 DOCTOR: MERY THOMAS MD BIRTHDATE: [birth year] DOS: 04/02/2017 SUBJECTIVE: The patient is here with complaint of shortness of breath and also feeling very weak. OBJECTIVE: VITAL SIGNS: Blood pressure 122/57, heart rate 90 beats per minute, breathing 20 times per minute, temperature 98 degrees Fahrenheit. IMPRESSION: 1. The patient with acute over chronic respiratory failure with recent multilobular pneumonia being followed by Dr. Valencia and patient is being treated with IV antibiotics. She is on intravenous doxycycline and Levaquin given in the Emergency Department. Presently being treated with DuoNebs and Solu-Medrol, but no leukocytosis. Dr. Valencia is not giving her any more antibiotics. 2. The patient with chronic diastolic type congestive heart failure. 3. Morbid obesity, generalized weakness and failure to thrive. The patient to work with physical therapy. 4. Chronic stasis dermatitis involving both lower extremities, also at least partly related to her morbid obesity. 5. Type 2 diabetes mellitus. Blood sugars are reasonably controlled, normal at admission. 6. Benign essential hypertension. Blood pressures to be monitored and treated. 7. Generalized weakness and failure to thrive to be treated with physical therapy. 8. Benign essential hypertension. Blood pressures to be monitored and treated. 9. Mixed hyperlipidemia, treated with Lipitor. MERY THOMAS MD CM:PNTRANS 22 [phone] MERY THMOAS MD 04/03/17726 interface
--- NOTE | ~2017-03-31 | DS ---
[place], [place] DISCHARGE SUMMARY NAME: MAU MARTINEZ [facility] #: [id number] UNIT #: [id number] ROOM: 523 DOCTOR: MERY THOMAS MD BIRTHDATE: [birth year] DOS: 04/04/2017 DISCHARGE DIAGNOSES: 1. The patient has obesity, generalized weakness and adult failure to thrive going to senior living facility for rehabilitation. 2. The patient with pneumonia and congestive heart failure, evaluated by robotic welder, Dr. Valencia and recommended continued treatment on senior living facility. 3. Chronic diastolic type congestive heart failure. 4. Morbid obesity, generalized weakness and failure to thrive. 5. Chronic stasis dermatitis involving both lower extremities. 6. Type 2 diabetes mellitus. 7. Benign essential hypertension. 8. Generalized weakness and adult failure to thrive. 9. Mixed hyperlipidemia. 10. Chronic atrial fibrillation. 11. Chronic obstructive pulmonary disease. 12. History of lymphedema. 13. Generalized anxiety disorder. 14. Hypothyroidism. HOSPITAL COURSE: The patient was seen by Dr. Valencia, the robotic welder and diagnosed as having CHF and probable pneumonia. The patient has already been treated with antibiotics, so Dr. Valencia has not suggested any new antibiotics, but he is agreeing with discharge to senior living facility for obesity, generalized weakness and failure to thrive. Social service was working on discharging her to a nursing facility for rehab. When they complete arrangements, the patient can be discharged. 1. Chronic respiratory failure, COPD and diastolic type CHF with chronic shortness of breath, treated with DuoNebs, oxygen and I will give her antibiotics for 1 week. 2. Hypokalemia, treated with extra potassium supplements. 3. Hypothyroidism, treated with levothyroxine. 4. Type 2 diabetes mellitus, being treated with Tradjenta. Blood sugars to be monitored. 5. Chronic atrial fibrillation. The patient is anticoagulated with Eliquis. DISCHARGE MANAGEMENT: The patient to be kept on Levaquin 750 mg every other day for 5 doses, DuoNebs every 4 hours, Medrol Dosepak, Tradjenta 5 mg a day, Lipitor 20 mg a day, omeprazole 20 mg a day, glipizide 5 mg daily, levothyroxine 25 mcg daily, lisinopril 20 mg a day, apixaban 5 mg b.i.d., amiodarone 200 mg b.i.d., potassium chloride 20 mEq t.i.d., Bumex 1 mg b.i.d. Repeat basic metabolic profile within 1 week along with CBC. Consult physical therapy. [place], [place] DISCHARGE SUMMARY NAME: MAU MARTINEZ UNIT #: [id number] ROOM: 523 DOCTOR: MERY THOMAS MD BIRTHDATE: [birth year] MERY THOMAS MD CM:DISCHARG 07 MEYR THOMAS MD 04/03/172206 interface
--- NOTE | ~2017-03-31 | ECHO ---
[place], [place] ADULT ECHOCARDIOGRAPHY REPORT NAME MAU MARTINEZ UNIT #: [id number] ROOM: 523 DOCTOR: FLORI FERNANDES MD,EVELIN BIRTHDATE: [birth year] DOS: 03/31/2017 TIME DONE: 1400 hours and 12 minutes. The underlying rhythm noted normal sinus rhythm with a rate of 87 beats per minute. Nonspecific ST-T changes was noted in 1 and aVL. The QT interval was noted mildly prolonged, QTC interval noted mildly prolonged. EVELIN RUBY MD CM:ECHO:ADULT ECHOCARDIOGRAPHY REPORT 1201 [id number] EVELIN FERNANDES MD
[2017-03-31 13:41] VITALS: BP 153/56
[~2017-03-31 13:41] MED LIST changes: +LISINOPRIL10 M1 PO
[2017-03-31 14:23] LABS: BASO # 0.1 10*3/uL (0.0-0.1); BASO % 0.5 % (0.0-1.0); EOS # 0.2 10*3/uL (0.0-0.4); EOS % 1.4 % (1.0-4.0); HEMATOCRIT 34.4 % (37.0-47.0); HEMOGLOBIN 10.5 g/dl (12.0-16.0); LYMPH # 0.7 10*3/uL (1.3-4.4); MEAN CELL VOLUME 90.1 fl (81.0-99.0); MEAN CORPUSCULAR HGB 27.5 pg (27.0-31.0); MEAN CORPUSCULAR HGB CONC 30.5 g/dl (33.0-37.0); MEAN PLATELET VOLUME 9.8 fl (9.6-12.3); MONO # 1.1 10*3/uL (0.1-1.0); MONO % 7.8 % (3.0-9.0); NEUT # 11.4 10*3/uL (2.3-7.9); NEUT % 84.8 % (47.0-73.0); PLATELET COUNT AUTOMATED 309 10*3/uL (130-400); RED BLOOD COUNT 3.82 10*6/uL (4.10-5.10); RED CELL DISTRI WIDTH 16.1 % (0-14.5); WHITE BLOOD COUNT 13.5 10*3/uL (4.8-10.8)
[2017-03-31 14:39] LABS: ALBUMIN 2.7 gm/dl (3.1-4.5); ALKALINE PHOSPHATASE 81 U/L (45-117); BUN 18 mg/dl (7-24); CHLORIDE 106 mmol/L (98-107); CREATININE 1.33 mg/dL (0.55-1.02); POTASSIUM 3.4 mmol/L (3.5-5.1); SGOT/AST 31 IU/L (3-35); SGPT/ALT 13 U/L (12-78); SODIUM 143 mmol/L (136-145)
[2017-03-31 14:45] LABS: TROPONIN I < 0.015 ng/ml (<0.045)
--- NOTE | 2017-03-31 14:55 | NUR ---
RESTING IN NO DISTRESS. RESPS ARE EASY AND NON LABORED. SAIRA RAPHAEL RN
[2017-03-31 15:52] VITALS: BP 123/43
--- NOTE | 2017-03-31 15:59 | NUR ---
CCA 72, admitted to , under the services of Dr. WILLIAM FRYE,MERY Page with a diagnosis of PNEUMONIA. Chief complaint is WEAKNESS, SOB. Patient arrived via ambulance from ER. Monitor applied. Initial assessment completed. Vital signs taken and recorded. DR. WILLIAM FRYE,MERY Page notified of admission to the unit. Orders received. See assessment for past medical history, medications and allergies. Patient and/or family oriented to unit. [facility] visitation policy reviewed. Clothing/patient valuable form completed. ZACH ALVAREZ.
--- NOTE | 2017-03-31 16:00 | NUR ---
NOTIFIED REGARDING PATIENT BEING ADMITTED TO 5TH FLOOR. OKAY TO ADMIT TO 5TH FLOOR. PATIENT IS TO REMAIN ON THE COSTUME SPECIALIST.
[2017-03-31 16:15] VITALS: BP 144/71
--- NOTE | 2017-03-31 16:48 | NUR ---
SPOKE WITH PATIENT AND FAMILY REGARDING CODE STATUS. PATIENT WISHES TO BE A DNR-CCA. NOTIFIED AT THIS TIME.
--- NOTE | 2017-03-31 16:58 | NUR ---
NOTIFIED OF CONSULT.
[2017-03-31 20:00] VITALS: BP 131/49
--- NOTE | 2017-03-31 20:45 | NUR ---
CALLED AND SPOKE WITH DR. THOMAS AND PT. IS A TELEMETRY PATIENT ORDER RECEIVED.
[2017-04-01] VITALS: BP 155/51
--- NOTE | 2017-04-01 02:29 | NUR ---
PT RESTING QUIETLY IN BED. NO S/S OF DISTRESS NOTED. CALL LIGHT IN REACH.
[2017-04-01 06:23] LABS: BASO # 0.1 10*3/uL (0.0-0.1); BASO % 0.6 % (0.0-1.0); EOS # 0.3 10*3/uL (0.0-0.4); EOS % 2.6 % (1.0-4.0); HEMATOCRIT 31.4 % (37.0-47.0); HEMOGLOBIN 9.4 g/dl (12.0-16.0); LYMPH # 0.6 10*3/uL (1.3-4.4); LYMPH % 5.9 % (27.0-41.0); MEAN CORPUSCULAR HGB 28.1 pg (27.0-31.0); MEAN CORPUSCULAR HGB CONC 29.9 g/dl (33.0-37.0); MEAN PLATELET VOLUME 9.8 fl (9.6-12.3); MONO # 0.8 10*3/uL (0.1-1.0); MONO % 7.4 % (3.0-9.0); NEUT # 8.8 10*3/uL (2.3-7.9); PLATELET COUNT AUTOMATED 268 10*3/uL (130-400); RED BLOOD COUNT 3.34 10*6/uL (4.10-5.10); RED CELL DISTRI WIDTH 16.5 % (0-14.5); WHITE BLOOD COUNT 10.6 10*3/uL (4.8-10.8)
[2017-04-01 06:44] LABS: CREATININE 1.15 mg/dL (0.55-1.02); POTASSIUM 3.6 mmol/L (3.5-5.1)
[2017-04-01 08:00] VITALS: BP 131/44
--- NOTE | 2017-04-01 08:30 | NUR ---
Tripe Washer in to talk to patient. Patient states lives at HOME ALONE with . There are 0 steps in the home. Physician: DR THOMAS Pharmacy: [facility]: [facility], [facility]SPORT, [facility], [facility] Patient's level of ADLs: BEDFAST Patient has working utilities: YES DME: Follow-up physician's appointment after d/c: WILL BE MADE PRIOR TO DC Does patient want to access PORTAL?: Discharge plan . HENOK BRAY SPOKE TO PT ABOUT SNF. PT HAS HAD MULTIPLE ADM AND REFUSING SNF STAY. AGREES TO SNF STAY AND CHOOSES [facility]. DC DIRECTOR OF INTERCOLLEGIATE ATHLETICS WILL MAKE REFERRAL.
--- NOTE | 2017-04-01 10:45 | NUR ---
Patient requested to speak to production planner scheduler. She stated instead of being referred to [facility] she would like to be referred to the [facility]. Will contact [facility] and fax referral.
--- NOTE | 2017-04-01 10:49 | NUR ---
PHYSICAL THERAPY PAtient evaluated on 5, full evaluation to follow. Continue with PT as per plan of care with fall, max (A) x 2 and signfiicant acute debility precautions. 02 precautions. Patient will require SNF for impaired mobility in order to return to PLOF. Patient is high complexity via chart review, tests and evaluation : [id number]. Thank you for this referral. Sloane Hopper,PT
--- NOTE | 2017-04-01 11:23 | NUR ---
Occupational Therapy evaluation completed this date on 5 with full eval to follow. Precautions include fall risk, obesity, O2, IV UE, high complexity level 72553. Recommend OT per POC and SNF to enable return home. Thank you for this referral. Tnia Cooper OTR/L
--- NOTE | 2017-04-01 11:31 | NUR ---
Contacted [facility] and faxed referral for [facility] facility only. Patient is not a good candidate for rehab suites and cannot qualify [place] [facility] [place] medicaid [place] secondary. Waiting on acceptance. Will require precert.
[2017-04-01 11:58] VITALS: BP 118/38
--- NOTE | 2017-04-01 13:46 | NUR ---
PHYSICAL THERAPY Georgia Nunez was seen this PM for her therapy session. Pt did not want to take any therapy, transfer or stand just said no did not want to. OMAR RUTLEDGE DIRECTOR OF PROCUREMENT.
--- NOTE | 2017-04-01 14:54 | NUR ---
PATIENT DECLINED OT THIS DATE STATING " NO, GO AWAY" UPON ENTERING ROOM. ZAKIYA CLEMENT/Jose
[2017-04-01 16:00] VITALS: BP 116/50
--- NOTE | 2017-04-01 19:55 | NUR ---
PT. ALERT AND ORIENTED X 3. LUNGS DIMINISHED THROUGHOUT, PT. STATES PHILIP, NC @ 3L, DENIES SOB WHEN RESTING. S1S2, PPP, PT. DENIES CP. NORMOACTIVE BOWEL SOUNDS X 4 QUADS, PT. DENIES N/V/D. LYMPHEDEMA TO BLE. CALL LIGHT WITHIN REACH, BED IN LOWEST POSITION, WHEELS LOCKED.
[2017-04-01 20:00] VITALS: BP 132/85
[2017-04-02] VITALS: BP 114/50
[2017-04-02 06:21] LABS: HEMATOCRIT 34.2 % (37.0-47.0); MEAN CELL VOLUME 93.4 fl (81.0-99.0); MEAN CORPUSCULAR HGB 27.3 pg (27.0-31.0); MEAN CORPUSCULAR HGB CONC 29.2 g/dl (33.0-37.0); MEAN PLATELET VOLUME 10.7 fl (9.6-12.3); PLATELET COUNT AUTOMATED 273 10*3/uL (130-400); RED BLOOD COUNT 3.66 10*6/uL (4.10-5.10); RED CELL DISTRI WIDTH 15.9 % (0-14.5); WHITE BLOOD COUNT 10.4 10*3/uL (4.8-10.8)
[2017-04-02 06:29] LABS: ALBUMIN 2.2 gm/dl (3.1-4.5); CREATININE 1.22 mg/dL (0.55-1.02); POTASSIUM 3.9 mmol/L (3.5-5.1); TOTAL PROTEIN 6.7 gm/dL (6.4-8.2)
[2017-04-02 07:13] LABS: TOTAL CELLS COUNTED 100 #CELLS
[2017-04-02 07:14] LABS: PLATELET SUFFICIENCY NORMAL (NORMAL); POLYCHROMASIA SLIGHT
[2017-04-02 08:00] VITALS: BP 131/48
[2017-04-02 12:00] VITALS: BP 123/46
[2017-04-02 16:00] VITALS: BP 122/57
[2017-04-02 20:00] VITALS: BP 136/55
--- NOTE | 2017-04-02 20:16 | NUR ---
1950 UP IN RECLINER CHAIR AT BEDSIDE. CALL LIGHT IN REACH. HEP LOCK ITACT. [address] THOMAS IN TO SEE PT. CHRONIC EDEMA CONT JOHN LOWER EXTREMITIES. NO C/O'S VOICED AT PRESENT.
--- NOTE | 2017-04-02 22:11 | NUR ---
SLEEPING IN RECLIMER CHAIR AT BEDSIDE. CALL LIGHT IN REACH.
[2017-04-03] VITALS: BP 126/48
--- NOTE | 2017-04-03 01:31 | NUR ---
PT SLEEPING. WILL CONTINUE TO MONITOR.
--- NOTE | 2017-04-03 06:00 | NUR ---
REMAINS IN RECLINER, SLEPT THROUGHOUT NIGHT. NO ACUTE DISTRESS NOTED. RESPIRATIONS EASY. CALL LIGHT WITHIN REACH. NO VOICED COMPLAINTS THIS SHIFT
[2017-04-03 06:06] LABS: HEMATOCRIT 33.1 % (37.0-47.0); HEMOGLOBIN 9.6 g/dl (12.0-16.0); MEAN CELL VOLUME 91.4 fl (81.0-99.0); MEAN CORPUSCULAR HGB 26.5 pg (27.0-31.0); MEAN PLATELET VOLUME 10.2 fl (9.6-12.3); PLATELET COUNT AUTOMATED 301 10*3/uL (130-400); RED BLOOD COUNT 3.62 10*6/uL (4.10-5.10); RED CELL DISTRI WIDTH 15.9 % (0-14.5); WHITE BLOOD COUNT 13.9 10*3/uL (4.8-10.8)
[2017-04-03 06:13] LABS: ALBUMIN 2.3 gm/dl (3.1-4.5); CREATININE 1.18 mg/dL (0.55-1.02); POTASSIUM 4.5 mmol/L (3.5-5.1); TOTAL PROTEIN 6.6 gm/dL (6.4-8.2)
[2017-04-03 06:56] LABS: PLATELET SUFFICIENCY NORMAL (NORMAL); POLYCHROMASIA SLIGHT; TOTAL CELLS COUNTED 100 #CELLS
[2017-04-03 08:00] VITALS: BP 148/49
[2017-04-03 12:00] VITALS: BP 138/49
--- NOTE | 2017-04-03 12:53 | NUR ---
DR RUBY WAS IN TO SEE PATIENT AND STATED THAT SHE WAS READY TO BE RETURNED TO WHERE SHE LIVES FROM HIS STANDPOINT. WILL NOTIFY DR THOMAS.
--- NOTE | 2017-04-03 14:18 | NUR ---
PATIENT UP IN RECLINER IN ROOM. HEPLOCK INTACT IN RIGHT WRIST. NO COMPLAINTS VOICED.
--- NOTE | 2017-04-03 14:51 | NUR ---
DR THOMAS NOTIFIED OF PATIENT BEING SEEN BY DR RUBY AND THAT SHE CAN GO BACK HOME OR TO [facility].
--- NOTE | 2017-04-03 15:30 | NUR ---
DR THOMAS IN TO SEE PT.
[2017-04-03 16:00] VITALS: BP 114/43
--- NOTE | 2017-04-03 16:00 | NUR ---
OOB TO CHAIR, EASY RESPIRATIONS WITH SKIN W/D. LEGS ELEVATED TO AID IN ALLEVIATING PERIPHERAL EDEMA. PT DENIES C/O AT PRESENT TIME. CALL LIGHT SYSTEM WITHIN REACH. SEE SHIFT ASSESSMENT.
--- NOTE | 2017-04-03 18:55 | NUR ---
NO OBVIOUS CHANGES NOTED THIS SHIFT.
[2017-04-03 20:00] VITALS: BP 137/53
--- NOTE | 2017-04-03 20:30 | NUR ---
PT STATES THAT SHE WOULD PREFER TO GO TO [facility] VS [facility]. PT STATES THAT SHE DID RELY THAT INFORMATION TO SS TODAY.
[2017-04-04] VITALS: BP 122/68
--- NOTE | 2017-04-04 06:21 | NUR ---
24 HR chart check completed.
[2017-04-04 06:42] LABS: ALBUMIN 2.6 gm/dl (3.1-4.5); CREATININE 1.34 mg/dL (0.55-1.02); POTASSIUM 4.8 mmol/L (3.5-5.1); TOTAL PROTEIN 6.5 gm/dL (6.4-8.2)
[2017-04-04 08:00] VITALS: BP 133/48
--- NOTE | 2017-04-04 09:38 | NUR ---
CURRENT IV WAS OUT, D/C'D. IV RESTARTED IN RAC, CLEANED AREA, 22GA INSERTED AND VERIFIED, GOOD RETURN. FLUSHED WITH NORMAL SALINE AND SECURED.
--- NOTE | 2017-04-04 09:44 | NUR ---
PATIENT SLEPT IN RECLINER CHAIR ALL NIGHT PER PT. NO S/S OF DISTRESS. BREATHS EASILY, NO DISTRESS. LEGS WITHOUT OPEN AREAS.
--- NOTE | 2017-04-04 09:51 | NUR ---
Patient seen for 30 minutes 1:1 therapy this date. Patient identified by name and date of . Completed functional xfer training sit to stand from adri chair CGA with min verbal cues safety. Completed stand tolerance use FWW support 3 minutes with c/o fatigue with reaching use one hand x 5 reps each arm. Patient completed BUE AROM seated all planes 5 exercises x 10 reps with c/o fatigue and verbal cues purse lip breathing. Patient required frequent Rest breaks. Patient completed grooming seated combing hair SBA after URIARTE. Patient requested cup of ice this date. Retrieved patient cup of ice with patient verbalizing thank you and call light within reach upon leaving room. Continue towards plan of care. Lesly Mathias/Jose
--- NOTE | 2017-04-04 10:00 | NUR ---
PHYSICAL THERAPY Georgia Nunez was seen this AM 1:1 for her therapy gait. Pt we up in her bedside chair this therapy visit. Pt with fall risk and obesity. Transfer sit/stand MOD A X 1, up on wheeled walker standing balance MIN A X 1. Pt is on 2 L 02 , gait total 82' X 1, MOD RUBBISH COLLECTION SUPERVISOR X 1, with wheeled walker, verbal cueing for gait, walker, turn safety and on LOB this AM. Pt back up in her bedside chair, call light, phone and did not get SOB with this gait, treatment time 17 min. OMAR RUTLEDGE CYLINDRICAL MIXER.
[2017-04-04 12:00] VITALS: BP 132/51
--- NOTE | 2017-04-04 13:25 | NUR ---
PER RAMON AT [facility], PT CAN COME SOON THEY GET NEW BARIATRIC MATTRESS. RAMON WILL CALL DC HYDRAULICS TEACHER WHEN IT ARRIVES.
--- NOTE | 2017-04-04 13:55 | NUR ---
Completed pass/rr online in [employer] system
--- NOTE | 2017-04-04 14:17 | NUR ---
Patient ok to go to [facility] today once bariatric bed arrives. Notified [facility] to please call nursing floor if beds arrives after 4 pm for set up.
--- NOTE | 2017-04-04 16:15 | NUR ---
PATIENT DICSHARGED TO [facility] VIA [facility]. ALL PAPERWORK GIVEN TO EMS, PATIENT COLLECTED HER MONEY FROM LOCK BOX. NO S/S OF DISTRESS. OXYGEN INTACT. FAMILY NOTIFIED. [place] OF FACILITY AT 1615.
--- NOTE | 2017-04-05 07:45 | NUR ---
PHYSICAL THERAPY CO-SIGN I approve of the Phyical Therapy notes written above. MAIDA MARTINEZ PT
== END 2017-04-04 16:15 | disposition other institution (70) | DRG 291 ==
LOC: ED 13:41 → 5E 15:11 → EDHOLD 15:11 → ICCU 15:19 → 5E 15:43
PROVIDERS: Emergency Medicine; Internal Medicine Critical Care Medicine; ADMIT Internal Medicine
DX: I13.0 Hypertensive heart and chronic kidney disease with heart failure and stage 1 through stage 4 chronic kidney disease, or unspecified chronic kidney disease (principal); I50.33 Acute on chronic diastolic (congestive) heart failure; J96.21 Acute and chronic respiratory failure with hypoxia; E87.3 Alkalosis; J18.1 Lobar pneumonia, unspecified organism; E11.22 Type 2 diabetes mellitus with diabetic chronic kidney disease; J44.0 Chronic obstructive pulmonary disease with (acute) lower respiratory infection; J45.901 Unspecified asthma with (acute) exacerbation; N18.3 Chronic kidney disease, stage 3 (moderate); J44.9 Chronic obstructive pulmonary disease, unspecified; Z99.81 Dependence on supplemental oxygen; J96.22 Acute and chronic respiratory failure with hypercapnia; Z68.43 Body mass index [BMI] 50.0-59.9, adult; E66.01 Morbid (severe) obesity due to excess calories; Z60.2 Problems related to living alone; F41.1 Generalized anxiety disorder; K21.9 Gastro-esophageal reflux disease without esophagitis; E03.9 Hypothyroidism, unspecified; R62.7 Adult failure to thrive; I89.0 Lymphedema, not elsewhere classified; I48.2 Chronic atrial fibrillation; E78.2 Mixed hyperlipidemia; I87.2 Venous insufficiency (chronic) (peripheral); E87.6 Hypokalemia; G47.33 Obstructive sleep apnea (adult) (pediatric); D53.9 Nutritional anemia, unspecified; Z88.2 Allergy status to sulfonamides; Z79.899 Other long term (current) drug therapy; Z87.01 Personal history of pneumonia (recurrent); Z90.49 Acquired absence of other specified parts of digestive tract; Z90.89 Acquired absence of other organs; Z83.3 Family history of diabetes mellitus; Z82.3 Family history of stroke; Z82.49 Family history of ischemic heart disease and other diseases of the circulatory system; Z91.19 Patient's noncompliance with other medical treatment and regimen

== ENCOUNTER 2017-05-28 10:32 | Emergency (ER) | payer MEDICARE ==
[~2017-05-28] VITALS: Ht 157.4 cm; Wt 127.0 kg
--- NOTE | ~2017-05-28 | EKG ---
[place], [place] ELECTROCARDIOGRAM REPORT NAME: MAU MARTINEZ UNIT #: [id number] ROOM: DOCTOR: FLORI FERNANDES MD,EVELIN BIRTHDATE: [birth year] DOS: 05/28/2017 ELECTROCARDIOGRAM The electrocardiogram was done on 05/28/2017 at 11:03 a.m. Atrial fibrillation noted with a rate of 77 beats per minute. Nonspecific ST-T changes for this patient was also noted. EVELIN RUBY MD CM:EKGRPT:ELECTROCARDIOGRAM REPORT 1420 0119 EVELIN FERNANDES MD
[2017-05-28 11:01] LABS: BASO % 0.5 % (0.0-1.0); EOS # 0.3 10*3/uL (0.0-0.4); HEMATOCRIT 35.1 % (37.0-47.0); HEMOGLOBIN 10.9 g/dl (12.0-16.0); LYMPH # 0.8 10*3/uL (1.3-4.4); LYMPH % 8.9 % (27.0-41.0); MEAN CELL VOLUME 89.8 fl (81.0-99.0); MEAN CORPUSCULAR HGB 27.9 pg (27.0-31.0); MEAN CORPUSCULAR HGB CONC 31.1 g/dl (33.0-37.0); MEAN PLATELET VOLUME 9.9 fl (9.6-12.3); MONO # 0.5 10*3/uL (0.1-1.0); MONO % 5.7 % (3.0-9.0); NEUT # 7.1 10*3/uL (2.3-7.9); NEUT % 81.6 % (47.0-73.0); PLATELET COUNT AUTOMATED 264 10*3/uL (130-400); RED BLOOD COUNT 3.91 10*6/uL (4.10-5.10); RED CELL DISTRI WIDTH 17.1 % (0-14.5); WHITE BLOOD COUNT 8.7 10*3/uL (4.8-10.8)
[2017-05-28 11:12] LABS: ACT PARTIAL THROMBO TIME 21.9 SECONDS (20.8-31.5)
[2017-05-28 11:28] LABS: ALBUMIN 3.1 gm/dl (3.1-4.5); ALKALINE PHOSPHATASE 103 U/L (45-117); BUN 22 mg/dl (7-24); CHLORIDE 102 mmol/L (98-107); CREATININE 1.42 mg/dL (0.55-1.02); POTASSIUM 3.5 mmol/L (3.5-5.1); SGOT/AST 13 IU/L (3-35); SGPT/ALT 16 U/L (12-78); SODIUM 140 mmol/L (136-145); TOTAL PROTEIN 7.2 gm/dL (6.4-8.2)
[2017-05-28 11:29] LABS: TROPONIN I < 0.015 ng/ml (<0.045)
== END 2017-05-28 13:32 | disposition home or self-care (01) ==
LOC: ED 10:32
PROVIDERS: Emergency Medicine
DX: J44.9 Chronic obstructive pulmonary disease, unspecified (principal); L98.9 Disorder of the skin and subcutaneous tissue, unspecified; I89.0 Lymphedema, not elsewhere classified; I13.0 Hypertensive heart and chronic kidney disease with heart failure and stage 1 through stage 4 chronic kidney disease, or unspecified chronic kidney disease; N18.3 Chronic kidney disease, stage 3 (moderate); I50.9 Heart failure, unspecified; K21.9 Gastro-esophageal reflux disease without esophagitis; E11.22 Type 2 diabetes mellitus with diabetic chronic kidney disease; E78.5 Hyperlipidemia, unspecified; I48.91 Unspecified atrial fibrillation; Z90.49 Acquired absence of other specified parts of digestive tract

== ENCOUNTER 2017-12-10 22:31 | Inpatient (IN) | payer MEDICARE ==
[2017-12-10] VITALS (10 sets, daily range): BP systolic 115–156; BP diastolic 60–120
[~2017-12-10] VITALS: Ht 157.4 cm; Wt 136.2 kg
--- NOTE | ~2017-12-10 | PR ---
[place], [place] PROGRESS NOTE NAME: MAU MARTINEZ [facility] #: [id number] UNIT #: [id number] ROOM: 408 DOCTOR: MERY THOMAS MD BIRTHDATE: [birth year] DOS: 12/15/2017 1. The patient with acute respiratory failure with acute over chronic diastolic type congestive heart failure, being monitored and treated by Dr. Hoyos. 2. Acute exacerbation of chronic obstructive pulmonary disease being treated with bronchodilators, followed closely. 3. Morbid obesity, adult failure to thrive. The patient working with physical therapy. 4. Paroxysmal atrial fibrillation with controlled heart rates. The patient anticoagulated with apixaban. 5. Chronic stasis dermatitis in both legs, lymphedema, treated with compression socks. 6. Hypothyroidism, treated with thyroid supplements. MERY THOMAS MD CM:PNTRANS [phone] MERY THOMAS MD 12/16/17 0153 interface
--- NOTE | ~2017-12-10 | PR ---
[place], [place] PROGRESS NOTE NAME: MAU MARTINEZ [facility] #: [id number] UNIT #: [id number] ROOM: 408 DOCTOR: MERY THOMAS MD BIRTHDATE: [birth year] DOS: SUBJECTIVE: The patient is refusing to go to an LTAC facility, but may agreed to go to half-way. OBJECTIVE: VITAL SIGNS: Blood pressure 122/56, afebrile, 69 beats per minute heart rate, breathing 20 times per minute. Morbidly obese, decreased breath sounds. GENERAL APPEARANCE: Chronic skin changes and leg edema in the legs, decreased breath sounds and morbid obesity. HEENT AND NECK: Exam within normal limits. CARDIOVASCULAR SYSTEM: Heart rate is regular in rate and rhythm. S1 and S2 normally audible. LUNGS: Clear to auscultation. ABDOMEN: Soft, nontender. No obvious organomegaly. Bowel sounds are present. EXTREMITIES: The patient also has chronic leg and pedal edema. IMPRESSION: 1. Acute exacerbation of chronic obstructive pulmonary disease, improving with treatment. The patient still requiring oxygen nebulizer treatments. I will try to get her to half-way facility in contrast to LTAC facility where I was sending her earlier on. 2. Morbid obesity and adult failure to thrive, which is severe. The patient working with physical therapy. 3. Chronic diastolic type congestive heart failure with interstitial lung disease on chest x-ray and chronic respiratory failure. 4. Paroxysmal atrial fibrillation with controlled heart rates. The patient remains on amiodarone and she is anticoagulated with apixaban. 5. Type 2 diabetes mellitus. Blood sugars are being monitored and treated. 6. Chronic stasis dermatitis in both legs and lymphedema being treated with compression socks. 7. Hypothyroidism, supplemented with levothyroxine. MERY THOMAS MD CM:PNTRANS 17 9 MERY THOMAS MD 12/15/17 0158 interface
--- NOTE | ~2017-12-10 | DS ---
[place], [place] DISCHARGE SUMMARY NAME: MAU MARTINEZ UNIT #: [id number] ROOM: 408 DOCTOR: MERY THOMAS MD BIRTHDATE: [birth year] DOS: 12/16/2017 DISCHARGE DIAGNOSES: 1. Acute on chronic diastolic type congestive heart failure. 2. Acute exacerbation of chronic obstructive pulmonary disease. 3. Chronic atrial fibrillation with rapid ventricular response. 4. Acute hypokalemia. 5. Benign essential hypertension. 6. Mixed hyperlipidemia. 7. Type 2 diabetes mellitus. 8. Hypothyroidism. 9. Morbid obesity. 10. Chronic kidney disease stage. 11. Chronic lower extremity lymphedema, stasis dermatitis and chronic skin changes. 12. Generalized anxiety disorder. 13. Chronic respiratory failure, with oxygen dependence. 14. Severe protein-calorie malnutrition. HOSPITAL COURSE: The patient presented to the Emergency Department with increasing shortness of breath and was found to be in acute congestive heart failure as well as acute exacerbation of COPD with advanced adult failure to thrive and morbid obesity. The patient also had some elevation of cardiac enzymes and chronic atrial fibrillation with rapid ventricular response. The patient was evaluated by Cardiology, diuresed with IV Lasix and she appears to have achieved maximum benefit from this admission and is going to a rehab center for rehabilitation. The patient was living at home, but her functional status is very limited because she is weak and morbidly obese. Chronic atrial fibrillation with rapid ventricular response, treated with adding Cardizem and the heart rates are much better controlled now. Acute over chronic diastolic type CHF, improved with diuresis. The patient was evaluated and managed by Cardiology. Type 2 diabetes mellitus. Blood sugar was monitored and treated. Acute exacerbation of COPD, treated and improved. The patient was treated with bronchodilators, corticosteroids. Morbid obesity and generalized weakness and adult failure to thrive. The patient worked with Physical Therapy. Hypothyroidism, treated with thyroid supplements. Diabetic nephropathy stage 3B. Chronic kidney disease. LABORATORY DATA: Normal CBC. Slight leukocytosis with white cell count 11,700. [place], [place] DISCHARGE SUMMARY NAME: MAU MARTINEZ UNIT #: [id number] ROOM: 408 DOCTOR: MERY THOMAS MD BIRTHDATE: [birth year] BUN and creatinine 48 and 1.92. DISCHARGE MANAGEMENT: Medrol Dosepak, amiodarone 200 mg daily, furosemide 80 mg b.i.d., potassium chloride 40 mEq daily, Tradjenta 5 mg a day, glipizide XL 5 mg daily, omeprazole 20 mg a day, levothyroxine 25 mcg daily, lisinopril 20 mg a day, apixaban 5 mg b.i.d., diltiazem 120 mg, Cardizem-CD 120 mg daily, DuoNeb q.i.d., Augmentin 875 mg twice a day for a week. MERY THOMAS MD CM:LEXIE [id number] 15 MERY THOMAS MD 12/16/17 2015 interface
--- NOTE | ~2017-12-10 | PR ---
[place], [place] PROGRESS NOTE NAME: MAU MARTINEZ [facility] #: [id number] UNIT #: [id number] ROOM: 408 DOCTOR: FLORI FERNANDES MD,EVELIN BIRTHDATE: [birth year] DOS: 12/14/2017 SUBJECTIVE: The patient has been transferred to telemetry floor this morning. She has not been noted symptoms of chest pain. The oxygen supplementation, but still continued with Optiflow oxygen supplementation. The BiPAP was also used. She has been noted reduction of the respiratory symptom partially from previously. She has not been noted symptoms of chest pain or hemoptysis. Has symptoms of nausea, vomiting. She has been noted chronic lymphedema of the lower extremity. There were no symptoms of hemoptysis or dysuria. Remaining systems were reviewed. They were noted all negative. OBJECTIVE: VITAL SIGNS: Normal temperature, respiratory rate 18, heart rate 72, blood pressure 142/59. Pulse oxygen saturation of the patient with Optiflow 40-50% oxygen 90-97% saturation. HEENT: Head was atraumatic, chronic obesity. NECK: Supple. It was obese. CARDIOVASCULAR SYSTEM: S1, S2 is audible. LUNGS: Noted general reduction in the breath sounds bilaterally. No crackles were heard for this patient. ABDOMEN: Soft with severe obesity. EXTREMITIES: Noted with severe edema of the lower extremities. MUSCULOSKELETAL: No abnormalities. CENTRAL NERVOUS SYSTEM: Nonfocal. SKIN: Chronic changes for the patient as noted on the lower extremities. LABORATORY DATA: Urine culture for the patient done on 12/11/2017 showed no bacterial growth. No other labs done today. IMPRESSION: 1. The patient who has been currently noted with acute respiratory failure with congestive heart failure, rule out amiodarone-induced toxicity as Dr. Hoyos called me and spoke with me about that, workup was started. 2. The patient with severe morbid obesity. 3. Obstructive sleep apnea disorder, nonadherence with the treatment. 4. Severe acute hypoxic respiratory failure, chronic hypoxic respiratory failure. 5. The patient's acute kidney change secondary to intravascular volume depletion. PLAN OF MANAGEMENT: The patient will be ordered the routine labs for the next 3 days to continue to monitor kidney function, WBC count, hemoglobin and hematocrit. Continue use of the BiPAP with the Optiflow oxygen supplementation. Usual care, other supportive therapy, plan of management and other care and treatments. Supportive care and other therapy, plan of management. Additional treatment changes continued to be made for the patient based on progression of the illness. [place], [place] PROGRESS NOTE NAME: MAU MARTINEZ UNIT #: [id number] ROOM: [facility] DOCTOR: FLORI FERNANDES MD,EVELIN BIRTHDATE: [birth year] EVELIN RUBY MD CM:PNTRANS 1533 2 EVELIN FERNANDES MD 12/15/17221 interface
--- NOTE | ~2017-12-10 | PR ---
[place], [place] PROGRESS NOTE NAME: MAU MARTINEZ [facility] #: [id number] UNIT #: [id number] ROOM: 408 DOCTOR: FLORI FERNANDES MD,EVELIN BIRTHDATE: [birth year] DOS: 12/15/2017 SUBJECTIVE: She has been currently staying on the telemetry floor. She has not been noted symptoms of chest pain or coughing. Shortness of breath has been improving. There were no symptoms of coughing reported by the patient. No symptoms of nausea, vomiting, diarrhea, or abdominal pain. She denies symptoms of hemoptysis or any chest pain at the present time. Denies any symptoms of headache or diplopia. Chronic changes of lower extremity was noted with reduction of the superimposed acute edema. OBJECTIVE: VITAL SIGNS: For the patient which were recorded of the patient shows temperature noted as normal, respiratory rate 18, heart rate 65, blood pressure 146/59-139/59. Pulse oxygen saturation of the patient recorded as 98% saturation, 45% oxygen supplementation with the ____ oxygen. HEENT: Chronic obesity. Head was atraumatic. Eyes nonicterus. NECK: Supple. CARDIOVASCULAR: S1, S2 is audible. LUNGS: The patient noted with [id number] decreased breath sounds without any crackles. ABDOMEN: Soft with chronic severe obesity. EXTREMITIES: Show chronic severe change in the patient's lymphedema. SKIN: Noted dryness of the lower extremity skin for this patient without any ulcers. MUSCULOSKELETAL: Without any acute deformities. CENTRAL NERVOUS SYSTEM: No focal deficit. LABORATORY DATA: BMP this morning, glucose 262, BUN 44, creatinine 1.91. Albumin is 2.8. The CBC for the patient WBC count 13.0, hemoglobin 13.7, hematocrit normal, platelet count remains normal. The CT scan of the chest that was done yesterday was personally reviewed shows some motion artifact noted with small right pleural fluid for the patient was noted. There were no findings of interstitial lung disease. IMPRESSION: 1. The patient currently noted with acute on chronic severe hypoxic respiratory failure, responding to the treatment. 2. Resolving acute congestive heart failure. 3. Right pleural fluid secondary to congestive heart failure with diastolic dysfunction. 4. Atrial fibrillation as well. 5. Severe morbid obesity with decreased mobility. PLAN OF THERAPY. Pleural fluid was noted small at this time, would not require any intervention. Continue diuretics. Monitor kidney functions as the resolution of acute kidney injury for the patient was noted. Continue other supportive therapy, plan of management care plan. Additional treatment changes will be made based on the progression of the illness. Radiologically, there was no evidence of toxicity noted from the amiodarone. [place], [place] PROGRESS NOTE NAME: MAU MARTINEZ UNIT #: [id number] ROOM: 408 DOCTOR: EVELIN PEREZ MD BIRTHDATE: [birth year] EVELIN RUBY MD CM:PNTRANS 1212 [id number] EVELIN FERNANDES MD 12/15/17 1310 interface
--- NOTE | ~2017-12-10 | PR ---
[place], [place] PROGRESS NOTE NAME: MAU MARTINEZ UNIT #: [id number] ROOM: [facility] DOCTOR: MERY THOMAS MD BIRTHDATE: [birth year] DOS: 12/12/2017 SUBJECTIVE: The patient with hypoxemia, requiring high flow of oxygen, with acute over chronic respiratory failure, moved to ICU for continued treatment and Pulmonary consult obtained. PHYSICAL EXAMINATION: VITAL SIGNS: Blood pressure 126/60, heart rate 80 beats per minute, breathing 20 times per minute, temperature 98 degrees Fahrenheit. GENERAL APPEARANCE: The patient is alert and oriented x 3, in no visible distress, except for obesity. HEENT AND NECK: Exam within normal limits. CARDIOVASCULAR SYSTEM: Heart rate is regular in rate and rhythm. S1 and S2 normally audible. LUNGS: Clear to auscultation. ABDOMEN: Soft, nontender. No obvious organomegaly. Bowel sounds are present. EXTREMITIES: Without significant cyanosis or edema. IMPRESSION: 1. Acute over chronic respiratory failure with very slow improvement if any treatment. I had a good discussion with the patient regarding her code status and patient has not decided. The patient is being treated with bronchodilators, corticosteroids and oxygen. 2. Chronic diastolic type congestive heart failure with interstitial lung disease on chest x-ray. The patient is treated with diuretics. 3. Paroxysmal atrial fibrillation with better controlled heart rates. The patient is also on amiodarone and anticoagulated with apixaban. 4. Type 2 diabetes mellitus. Blood sugar is being monitored and treated. 5. Advanced adult failure to thrive and obesity. The patient lives by herself at home, but she is not in a good physical condition to be able to continue to do this for a long time. 6. Chronic stasis dermatitis involving both lower extremities and some leg edema and lymphedema, which is chronic, being treated with compression socks. 7. Hypothyroidism, replaced with supplements. The patient is on levothyroxine. 8. Because of slow response to treatment, I will try to get her to high level LTAC facility for continued care. [place], [place] PROGRESS NOTE NAME: MAU MARTINEZ UNIT #: [id number] ROOM: [facility] DOCTOR: MERY THOMAS MD BIRTHDATE: [birth year] MERY THOMAS MD CM:CHRISTIAN 1618 40 MERY THOMAS MD 12/12/17 1840 interface
--- NOTE | ~2017-12-10 | PR ---
[place], [place] PROGRESS NOTE NAME: [facility] [id number] UNIT #: [id number] ROOM: 408 DOCTOR: FLORI FERNANDES MD,EVELIN BIRTHDATE: [birth year] DOS: 12/16/2017 SUBJECTIVE: The patient has been noted comfortable at this time, using oxygen supplementation with the Optiflow nasal cannula. She has not been noted with symptoms of chest pain. The patient has been using the BiPAP intermittently as well. OBJECTIVE: VITAL SIGNS: Normal temperature, respiratory rate 20, heart rate 69, blood pressure 149/53. The pulse oxygen saturation recorded on 2 liters nasal cannula 99% saturation. HEENT: Head was atraumatic. Eyes nonicterus. NECK: Supple. CARDIOVASCULAR: S1, S2 audible. LUNGS: The patient was noted without any wheeze or crackles. ABDOMEN: Soft, nontender. Bowel sounds present. EXTREMITIES: Without any acute new changes. Chronic lymphedema. Dryness of the skin of lower extremities. LABORATORY DATA: CBC today; WBC count 11.7, remaining CBC normal. CMP of the patient this morning; BUN 48, creatinine 1.92, glucose 348. IMPRESSION: The patient with resolving acute exacerbation of bronchial asthma, acute on chronic severe hypoxic respiratory failure as well, acute congestive heart failure exacerbation, diastolic dysfunction and atrial fibrillation. PLAN OF MANAGEMENT: Reduce the Solu-Medrol dose at the present time. Continuation of the bronchodilators, oxygen supplementation, other plan of management and care plan. Additional treatment changes to be made based on progression of the illness. EVELIN RUBY MD CM:PNTRANS [id number] EVELIN FERNANDES MD 12/17/17 0007 interface
--- NOTE | ~2017-12-10 | PR ---
[place], [place] PROGRESS NOTE NAME: MAU MARTINEZ [facility] #: [id number] UNIT #: [id number] ROOM: [facility] DOCTOR: MARLYS BABIN MD BIRTHDATE: [birth year] DOS: 12/12/2017 SUBJECTIVE: The patient was seen at her bedside in the intensive care unit today, 12/12/2017, for followup of her paroxysmal atrial fibrillation, heart failure and acute on chronic respiratory failure. She is a 72-year-old woman with multiple medical problems including diabetes, hypertension, hyperlipidemia, obstructive lung disease, paroxysmal atrial fibrillation and morbid obesity. She is on long-term anticoagulation with a direct acting oral anticoagulant and also takes amiodarone. Despite these problems, she states that she does not follow up routinely with any signals analyst. She came to the hospital on this occasion because of increased peripheral edema, increased cough and increased dyspnea. I saw her on 12/11/2017 and felt that she was in heart failure, but that her dyspnea was multifactorial and was due to her lung disease, diastolic heart failure, obesity and activity and deconditioning, etc. Overnight, she did have transient episode of hypotension, but she has maintained sinus rhythm. She has become hypoxemic and blood gas measurements show that both her pCO2 and her pO2 are abnormal and both about 50. pH was 7.30 consistent with a respiratory acidemia. This morning, the patient is awake and alert. She states that she is comfortable, but her oxygen saturation is still in the 80% range. PHYSICAL EXAMINATION: VITAL SIGNS: Today her pulse is 90 and regular, blood pressure is 133/74. She is afebrile. She does not have a weight on the chart. HEENT: Normocephalic and atraumatic. Extraocular muscles are intact. NECK: Supple. She does have jugular distention to the angle of the jaw when sitting at a 45-degree angle. Carotids are full. LUNGS: Respirations are somewhat labored. She has markedly decreased breath sounds bilaterally. HEART: Has a regular rhythm with an S4 gallop. Heart tones are distant. ABDOMEN: Morbidly obese. EXTREMITIES: Show lymphedema as well as pitting edema. She is wearing support stockings. LABORATORY DATA: Hemoglobin today is 13.2, white count 11,900. Sodium 141, potassium 4.1, BUN 16, creatinine 1.58. Troponin levels have been mildly elevated at 0.279. IMPRESSION: 1. Acute exacerbation of chronic diastolic heart failure. 2. Acute exacerbation of chronic respiratory failure. 3. Morbid obesity. 4. Hypoxemia and hypercarbia due to respiratory failure. 5. Paroxysmal atrial fibrillation. The patient is currently in sinus rhythm. 6. Diabetes mellitus. 7. Hypertension. 8. Chronic severe lymphedema. [place], [place] PROGRESS NOTE NAME: MAU MARTINEZ [facility] #: [id number] UNIT #: [id number] ROOM: [facility] DOCTOR: MARLYS BABIN MD BIRTHDATE: [birth year] PLAN: We will continue to diurese the patient. For now, I will continue her current cardiac medications including amiodarone. I am, however, concerned that some of her hypoxemia may be related to amiodarone-induced pulmonary toxicity and I will be discussing this with her switch operator, Dr. Valencia. Echocardiogram is pending and we will review that when it is available. I thank Dr. Tadeo for asking our advice regarding management of this patient. MARLYS BABIN MD CM:PNTRANS 0 8 MARLYS BABIN MD 12/12/17948 interface
--- NOTE | ~2017-12-10 | WRIGHTHP ---
[place], [place] PATIENT HISTORY AND PHYSICAL EXAM NAME: MAU MARTINEZ [facility] #: [id number] UNIT #: [id number] ROOM: 508 DOCTOR: MERY THOMAS MD BIRTHDATE: [birth year] DOS: 12/11/2017 HISTORY OF PRESENT ILLNESS: The patient is a 72-year-old female with a past medical history of: 1. Morbid obesity, generalized weakness and adult failure to thrive. 2. Chronic diastolic type CHF. 3. Chronic stasis dermatitis in both lower extremities. 4. Type 2 diabetes mellitus. 5. Benign essential hypertension. 6. Mixed hyperlipidemia. 7. Chronic atrial fibrillation. 8. COPD. 9. History of chronic lower extremity lymphedema. 10. Generalized anxiety disorder. 11. Hypothyroidism. The patient presented to the Emergency Department at [facility] for increasing shortness of breath and she was found to be in acute congestive heart failure as well as acute exacerbation of COPD. The patient has chronic adult failure to thrive issues. After admission, she was found to have some elevation of cardiac enzymes and also acute atrial fibrillation, for which Cardiology was consulted. Chronic swelling in her legs and lymphedema with stasis dermatitis. The patient had worsening cough. After admission, the patient is not complaining of any chest pain. No dizziness or fainting episode. No other GI or urinary symptoms. REVIEW OF SYSTEMS: LUNGS: Increasing shortness of breath. GASTROINTESTINAL: No nausea, vomiting, diarrhea or constipation. CARDIOVASCULAR: No chest pains or palpitations. SOCIAL HISTORY: The patient has been residing. HOME MEDICATIONS: Levothyroxine, Bumex, Lipitor, apixaban, amiodarone, doxycycline, glipizide, levothyroxine, lisinopril, Singulair, omeprazole, potassium, amiodarone. ALLERGIES: Known allergies to SULFA containing medications. FAMILY HISTORY: Noncontributory. PHYSICAL EXAMINATION: GENERAL: Alert, oriented, morbidly obese, very weak. VITAL SIGNS: Blood pressure 154/85, heart rate 111 beats per minute, breathing 20 times per minute, temperature 98.6 degrees Fahrenheit. EXTREMITIES: Morbidly obese, very weak lower extremities with chronic stasis dermatitis and 3 to 4+ leg and pedal edema and chronic skin changes compatible with stasis dermatitis. LABORATORY DATA: BUN and creatinine of 13 and 1.4, potassium improved to 3.4, [place], [place] PATIENT HISTORY AND PHYSICAL EXAM [facility]: [id number] UN[facility] #: [id number] ROOM: 508 DOCTOR: MERY THOMAS MD BIRTHDATE: [birth year] sodium 146. Normal CBC. Chest x-ray is showing chronic interstitial changes bilaterally. IMPRESSION: 1. The patient with acute over chronic respiratory failure with acute exacerbation of chronic obstructive pulmonary disease, to be treated with bronchodilators, oxygen, antibiotics and I will get Dr. Valencia, the electricity trader to follow her. 2. Chronic diastolic type congestive heart failure with interstitial lung disease on chest x-ray. The patient is being diuresed with Lasix and also remains on potassium supplements. 3. Paroxysmal atrial fibrillation, heart rates are being controlled with amiodarone and the patient anticoagulated with apixaban. The patient is also on diltiazem to control her heart rate. 4. Severe advanced adult failure to thrive and the patient insists on living by herself. The patient is in no condition to be able to take care of herself at home even with home aides and was recommended long term placement during her last visit, but she insists on going home. 5. Type 2 diabetes mellitus. Blood sugars are reasonably controlled. The patient remains on glipizide and Tradjenta. Blood sugar is to be monitored and treated. 6. Chronic stasis dermatitis involving lower extremities with leg edema and lymphedema, to be treated with leg elevation and compression socks. 7. Hypothyroidism, treated with levothyroxine. One hour time spent in the patient's history and physical and management, discussing her treatment with nursing staff and the patient herself. MERY THOMAS MD CM:HISPHYS:PATIENT HISTORY AND PHYSICAL EXAMINATION 40 15 MERY THOMAS MD 12/11/171914 interface
--- NOTE | ~2017-12-10 | CON ---
[place], [place] REPORT OF CONSULTATION NAME: MAU MARTINEZ [facility] #: [id number] UNIT #: [id number] ROOM: [facility] DOCTOR: EVELIN PEREZ MD BIRTHDATE: [birth year] DOS: 12/12/2017 PULMONARY CONSULTATION, EVALUATION, AND MANAGEMENT CONSULTATION REQUESTED BY: Dr. Tadeo. REASON FOR CONSULTATION: To assess the patient's current acute respiratory failure. HISTORY OF PRESENT ILLNESS: This is a 72-year-old female, very well known to me from the past. The patient has been noted with history of chronic congestive heart failure with diastolic dysfunction with lymphedema, obstructive sleep apnea disorder, nonadherent with the treatment and uncomplicated severe persistent bronchial asthma. She had not seen in my office for a while as well. The patient has been admitted to the hospital previously, the last one in March 2017. She presented to the Emergency Room as the patient has been reported with symptoms of increased shortness of breath that has been worsening gradually and progressively. She was noted with a mild cough without any sputum expectoration. Denies symptoms of chest pain or hemoptysis. The patient was noted with symptoms of wheezing as well. She has been admitted to telemetry floor and was later on transferred to the Intensive Care Unit because of the hypotension as well as progressive hypoxic respiratory failure requiring gradual increase in oxygen supplementation with the nasal cannula. She has been noted with oxygen supplementation with 100% nonrebreather mask and maintaining pulse oxygen saturation at 89-90%, later started on the BiPAP resulting in improvement in oxygenation upon my order. This morning, the patient was seen using the BiPAP with 60% of the oxygen supplementation with saturation noted 90-93% at the bedside. REVIEW OF SYSTEMS: GENERAL: Cannot be exactly performed for the patient because the patient current labile status and inability to take off the BiPAP; however, she reported symptoms of fatigue and tiredness, the patient nodded her head. EYES: Denies symptoms of burning in the eyes, redness, or drainage. ENT: Denies any symptoms of sore throat, hoarseness, or otalgia. CARDIOVASCULAR: Denies any palpitations. Chronic lymphedema of lower extremity with potential increase was reported. GASTROINTESTINAL: Denies any symptoms of abnormal weight loss, dysphagia, nausea, vomiting, diarrhea, abdominal pain, hematemesis, or melena. GENITOURINARY: There were no symptoms of dysuria or suprapubic pain. SKIN: Noted with chronic changes of lower extremities. There were no rashes or lesions. MUSCULOSKELETAL: Denies any joint pains or redness. CENTRAL NERVOUS SYSTEM: No dizziness, headache, diplopia, or syncopal episodes. Remaining systems were reviewed, they were noted all negative. PAST MEDICAL HISTORY: Known with history of: 1. Congestive heart failure with diastolic dysfunction. 2. Severe morbid obesity. [place], [place] REPORT OF CONSULTATION NAME: MAU MARTINEZ UNIT #: [id number] ROOM: [facility] DOCTOR: YAIMA PEREZ MDM BIRTHDATE: [birth year] 3. Obstructive sleep apnea disorder, nonadherent with the treatment. 4. Chronic hypoxic respiratory failure and acute chronic lymphedema of bilateral lower extremities. 5. History of type 2 diabetes mellitus. 6. Atrial fibrillation. 7. History of chronic kidney disease, stage 2 to stage 3. 7. History of hypothyroidism. PAST SURGICAL HISTORY: 1. T and A. 2. Appendectomy. 3. Cholecystectomy. SOCIAL HISTORY: The patient is , lives at home with her sister most of the time. Denies alcohol, illicit drug use or any tobacco use. FAMILY HISTORY: The patient's father at 92 years due to complications of myocardial infarction. Mother at age of 66 due to complication related to myocardial infarction. CURRENT MEDICATIONS: The current medication administered for the patient noted with use of IV Solu-Medrol 40 mg b.i.d., Lasix 60 mg q. 8h., potassium chloride 40 mEq p.o. daily, Aldactone 25 mg p.o. daily, Tradjenta 5 mg p.o. daily, Glipizide XL 5 mg p.o. daily, omeprazole 20 mg daily, levothyroxine 25 mcg daily, lisinopril 10 mg daily, Eliquis 5 mg p.o. b.i.d, Cardizem 30 mg p.o. q. 6 hours, DuoNeb q. 4 hours, amiodarone 200 mg daily, and the Rocephin 1 gram IV daily. DRUG ALLERGIES: SULFA DRUGS. PHYSICAL EXAMINATION: GENERAL: A 72-year-old white female, currently noted to be awake and alert without any acute distress. Height of 5 feet 2 inches, weight of 306 pounds, BMI 55.5. VITAL SIGNS: For the patient, which has been recorded shows temperature noted normal, respiratory rate ranged between 25-18, heart rate 151 with tachycardia, at this morning noted as 85 with normal sinus rhythm, blood pressure 116/41 this morning recorded. The intake for the patient recorded from yesterday was 880 and output 600 mL. Pulse oxygen saturation of the patient on 50% BiPAP use was 94-95% saturation with 9 L nasal cannula, pulse ox saturation noted 90% and 88-89% noted previously, and on 6 liters nasal cannula at admission it was 83%. HEENT: Severe morbid obesity. Head was atraumatic. Eyes nonicterus. Oral mucosa moist. Severe reduced posterior pharyngeal space. NECK: Supple. CARDIOVASCULAR: S1, S2 audible. LUNGS: Noted with moderate general reduction of breath sounds in the lungs bilaterally. ABDOMEN: Noted severe morbid obesity. Bowel sounds present. EXTREMITIES: Chronic changes with lymphedema with superimposed edema at this time present, unable to determine. [place], [place] REPORT OF CONSULTATION NAME: MAU MARTINEZ UNIT #: [id number] ROOM: [facility] DOCTOR: FLORI FERNANDES MD,EVELIN BIRTHDATE: [birth year] CENTRAL NERVOUS SYSTEM: Cranial nerves 2-12 intact. No focal deficit. MUSCULOSKELETAL: Without any acute deformities. LABORATORY DATA: CBC of the patient from 12/11/2017, WBC count 11.9. Remaining CBC was normal. Lactic acid yesterday noted 1.4. The PT/INR of the patient noted at 1.1. BMP of the patient that was done on 12/11/2017, BUN 13, creatinine 1.44. Sodium 146, potassium 3.4. Arterial blood gas of the patient, pH of 7.30, pCO2 of 50, pO2 49 on 15 liters high flow nasal cannula yesterday. IMAGING STUDIES: One-view chest x-ray of the patient that was done in the Emergency Room on 12/10/2017 was reviewed and it shows cardiomegaly noted with findings in consideration for acute congestive heart failure. IMPRESSION: 1. The patient who has been admitted to the hospital noted with severe acute hypoxic respiratory failure, hypotension related to congestive heart failure with diastolic dysfunction and acute chronic lymphedema of lower extremities. 2. The patient with history of severe morbid obesity. 3. Obstructive sleep apnea disorder, nonadherent with the treatment. 4. History of hypothyroidism and other illnesses. 5. Acute exacerbation of bronchial asthma. PLAN OF MANAGEMENT: Titer her pulse ox saturation to 92% or greater. Diuretic therapy has been already ordered. Mild hypokalemia noted and it is supplemented with repeat labs of the patient. Monitor the chest x-ray of the patient with intermittent assessment of the patient needed for assessment of the resolution of congestive heart failure radiologically as well. DVT prophylaxis. Other supportive therapy, plan of management and care plan. Continuation of the Solu-Medrol for this patient at this time at the same dose. Continuation of the current antibiotic, monitor culture results for any modification in antibiotics, continuation of the BiPAP at the current setting of 09/03. Continue with the vasopressor to maintain a mean arterial pressure of 65 or greater. With Eliquis continue to provide the anticoagulation for the patient with DVT prophylaxis as well. Other supportive therapy, plan of management care for this patient as well as previously. Thanks for allowing me to participate in the care of this patient. EVELIN RUBY MD CM:CONSTR:REPORT OF CONSULTATION 1523 12/13/17 0537 interface
--- NOTE | ~2017-12-10 | PR ---
[place], [place] PROGRESS NOTE NAME: MAU MARTINEZ [facility] #: [id number] UNIT #: [id number] ROOM: 408 DOCTOR: WILLIAM FRYE,MERY Page BIRTHDATE: [birth year] DOS: 12/13/2017 SUBJECTIVE: Patient still with chronic shortness of breath, feeling somewhat better. IMPRESSION: 1. Acute over chronic respiratory failure with acute exacerbation of chronic obstructive pulmonary disease, has decided to maintain a DNR comfort care code status today. I will try to put her at LTAC facility for continued care. 2. Morbid obesity and adult failure to thrive, which is severe. 3. Chronic diastolic type congestive heart failure with interstitial lung disease on chest x-ray, then chronic respiratory failure. 4. Paroxysmal atrial fibrillation with controlled heart rates with amiodarone. Patient also anticoagulated with apixaban. 5. Type 2 diabetes mellitus. Blood sugars being monitored and followed and treated. 6. Advanced adult failure to thrive and morbid obesity. Patient working with Dietary. 7. Chronic stasis dermatitis in both lower extremities with lymphedema, being treated with compression socks. 8. Hypothyroidism, treated with levothyroxine. MERY THOMAS MD CM:PNTRANS [phone] MERY THOMAS MD 12/14/17 0001 interface
--- NOTE | ~2017-12-10 | PR ---
[place], [place] PROGRESS NOTE NAME: MAU MARTINEZ [facility] #: [id number] UNIT #: [id number] ROOM: 408 DOCTOR: FLORI FERNANDES MD,EVELIN BIRTHDATE: [birth year] DOS: 12/13/2017 PULMONARY PROGRESS NOTE SUBJECTIVE: She has been resting comfortably. At this time, sitting on the bed. She was the BiPAP patient earlier and then later started on high flow Optiflow oxygen supplementation. Pulse ox saturation noted at this time 91-92%. She has been tolerating the BiPAP previously. The diuretic dose has been decreased by the Cardiology Services from 40 mg q.8h. to 40 mg b.i.d. She denies symptoms of chest pain or any hemoptysis. She denies any symptoms of cough. She denies symptoms of wheezing or abdominal pain. The patient has an echocardiogram completed yesterday, she was noted with diastolic dysfunction as well with a right ventricular overload as well. The patient denies symptoms of headache. The remaining systems were reviewed. They were noted all negative. PHYSICAL EXAMINATION: GENERAL: The patient was currently comfortably sitting on the bed. The patient is without any acute distress this morning. VITAL SIGNS: For the patient which were recorded in the last 24 hours were normal temperature, respiratory 20-16, heart rate of 90-70, blood pressure 140/72-130/70. Intake for the patient 570, output was only 740 mL. Pulse oxygen saturation with 50% BiPAP was 95% saturation with Optiflow oxygen supplementation nasal cannula 91-92% this morning. HEENT: Head was atraumatic, chronic obesity. NECK: Supple. CARDIOVASCULAR: S1, S2 is audible. LUNGS: The patient was noted with decreased breath sounds noted with crackles of the lungs. There was no wheezing. ABDOMEN: Soft, severe obesity. EXTREMITIES: Chronic changes. MUSCULOSKELETAL: No acute deformities. CENTRAL NERVOUS SYSTEM: No focal deficit. Cranial nerves 2-12 intact. LABORATORY DATA: The BMP of this morning, BUN 32, creatinine 2.11, glucose 202. Urine culture reported no bacterial growth. IMPRESSION: 1. The patient acute kidney injury. The patient related to diuretic with ongoing congestive heart failure with diastolic dysfunction. 2. History of atrial fibrillation, currently noted normal sinus rhythm. 3. Morbid obesity. 4. Obstructive sleep apnea disorder, nonadherent with the treatment. The patient therapy in the home settings. 5. Previous history of recurrent hospitalization ____ lower extremities. PLAN OF TREATMENT: Continuation of bronchodilators, oxygen supplementation and other plan of care is in progress. Additional treatment changes need to be made based on the progression of the illness. Usual care. Closely monitoring the [place], [place] PROGRESS NOTE NAME: MAU MARTINEZ UNIT #: [id number] ROOM: 408 DOCTOR: FLORI FERNANDES MD,EVELIN BIRTHDATE: [birth year] kidney functions as well. Continuation of the bronchodilators as well. Use of the BiPAP, continue to maximize at this time to support the respiratory failure. Obtain a chest x-ray portable view to reassess the progression of the pulmonary edema and congestive heart failure. EVELIN RUBY MD CM:PNLELO [id number] EVELIN FERNANDES MD 12/14/17 1528 interface
--- NOTE | ~2017-12-10 | CON ---
[place], [place] REPORT OF CONSULTATION NAME: MAU MARTINEZ [facility] #: [id number] UNIT #: [id number] ROOM: 508 DOCTOR: MARLYS BABIN MD BIRTHDATE: [birth year] DOS: 12/11/2017 REASON FOR CONSULTATION: Dyspnea, peripheral edema, severe leg edema and dyspnea. HISTORY OF PRESENT ILLNESS: The patient is a 72-year-old woman who does have a history of diabetes, hypertension, hyperlipidemia, obstructive lung disease and paroxysmal atrial fibrillation. She has been followed intermittently by Dr. Graham and Elliott and also has seen [facility] in the hospital in the past. She is on anticoagulation and amiodarone, but states that she does not really have a immunology teacher. Most of her followup apparently is with her chicken raiser, Dr. Valencia. She presents to the hospital on this occasion because of worsening dyspnea. She states that she has had a cough for a long time associated with severe lymphedema of her legs. Recently, she has noticed that her cough is worsening, associated with increased dyspnea and increased leg swelling. She denies any chest pain or palpitations, but is known to have paroxysmal atrial fibrillation with a rapid ventricular response. In the past, she has been on flecainide and propafenone. Flecainide was stopped because of recurrent atrial fibrillation with a very rapid ventricular response. It is not clear why propafenone was stopped, but presumably for lack of effect. Recently, she has been on amiodarone, but it is not clear if or when she had her last followup for this. The patient is unable to tell me much about her medical care and when I asked her why she did not have a routine immunology teacher, she states "they dismissed me." The patient does insist on remaining independent and living in her own senior citizen apartment even though she appears to be unfamiliar with what her medications are or how they should be taken. PAST MEDICAL HISTORY: Includes 1. Paroxysmal atrial fibrillation. 2. Chronic kidney disease. 3. Essential hypertension. 4. Hyperlipidemia. 5. Hypothyroidism. 6. Type 2 diabetes mellitus. 7. Gastroesophageal reflux disease. 8. Lymphedema. 9. Chronic obstructive pulmonary disease with frequent exacerbations. PAST SURGICAL HISTORY: Positive for cholecystectomy and tonsillectomy. MEDICATIONS: Prior to admission have not yet been reconciled. The patient does not know what her medicines are and her pharmacy does not appear to be open at this time. As of now, we presumed that she has been on albuterol by metered dose inhaler 2 puffs q.i.d., Breo Ellipta 1 inhalation daily, amiodarone 200 mg twice a day, apixaban 5 mg b.i.d., atorvastatin 20 mg daily, bumetanide 1 mg b.i.d., doxycycline 100 mg b.i.d., glipizide 5 mg daily, levothyroxine 25 mcg daily length, linagliptin 5 mg daily, lisinopril 10 mg b.i.d., montelukast 10 mg per day, omeprazole 20 mg per day, and potassium 20 mEq t.i.d. [place], [place] REPORT OF CONSULTATION NAME: MAU MARTINEZ UNIT #: [id number] ROOM: 508 DOCTOR: MARLYS BABIN MD BIRTHDATE: [birth year] ALLERGIES: Her chart indicates that she is allergic to SULFA DRUGS. FAMILY HISTORY: The patient's mother in her 80s of "old age." Father of unknown causes in his 40s. REVIEW OF SYSTEMS: The patient denies diplopia or loss of vision. She denies lightheadedness or syncope. Family who was in the room, states that she does have dyspnea with minimal exertion, that she walks with a cane, and has difficulty ambulating any distance. The patient does have a nonproductive chronic cough. She denies nausea or vomiting. She denies fevers, chills, sweats or any known weight change. She denies cough or hemoptysis. She denies hematemesis. She denies change in bowel or bladder habits. She does note that when she coughs, she leaks urine. She denies blood in her stools or urine. She does have chronic lymphedema of both legs with severe stasis changes and skin thickening. She denies heat or cold intolerance and denies polyuria or polydipsia. The remainder of the review of systems is negative except as noted above. SOCIAL HISTORY: The patient lives in a senior citizens apartment. She states that aides come in occasionally and do her shopping, etc. She gets out very little. She takes care of her own medications, but is not sure what medicines she is on. She does not smoke or consume alcohol. PHYSICAL EXAMINATION: GENERAL: The patient is an obese white female who is awake, alert and oriented. VITAL SIGNS: Pulse is 110 and regular, blood pressure is 144/86. She is afebrile. She weighs 137.7 kg and has a body mass index of 55.6. HEENT: Normocephalic and atraumatic. Extraocular muscles are intact. Pupils are round and react to light. The oral mucosa is moist. Tongue is midline. NECK: Supple. She does have marked jugular distention to the angle of the jaw. Carotids are full. I heard no bruits. She had no neck or supraclavicular masses and no thyromegaly. LUNGS: Respirations are unlabored. Her chest has decreased breath sounds at the bases, but no wheezes or rales. She has no presacral edema or chest wall tenderness. CARDIOVASCULAR: Her heart has a regular rhythm at this time. Heart tones are distant. There is a fourth heart sound, but no third heart sound or murmur. The PMI is not palpable. ABDOMEN: Distended and obese. There were no masses, organomegaly, bruits, tenderness or rebound. EXTREMITIES: Show severe chronic swelling with stasis changes and lichenification of her legs. There is severe skin thickening of the legs to the knees. I could not feel pedal pulses. LABORATORY DATA: I reviewed her electrocardiograms, one of them showed sinus rhythm with poor precordial R-wave progression. One done previously, however, on the same admission did show atrial fibrillation with a rate of 145. Hemoglobin is 13.2, hematocrit 43, white count 11,900. INR 1.1, sodium 146, potassium 3.4, BUN 13, creatinine 1.44, a single troponin was obtained and was [place], [place] REPORT OF CONSULTATION NAME: MAU MARTINEZ UNIT #: [id number] ROOM: 508 DOCTOR: MARLYS BABIN MD BIRTHDATE: [birth year] elevated at 0.107. TSH was normal at 4.55. IMPRESSION: 1. Acute exacerbation of chronic obstructive lung disease. 2. Multifactorial dyspnea due to chronic lung disease, diastolic heart failure, obesity, inactivity and deconditioning. 3. Chronic diastolic heart failure. 4. Paroxysmal atrial fibrillation. 5. Diabetes mellitus. 6. Chronic severe lymphedema. PLAN: We will diurese the patient with intravenous diuretics. We will repeat her echocardiogram since it has been a year since her last examination. We will replace her potassium. Once she has been stabilized, she probably should have pulmonary function studies with diffusion capacity to make sure that amiodarone is not leading to significant pulmonary problems. We will follow serial troponin levels. We thank Dr. Tadeo for asking our advice regarding her care. MARLYS BABIN MD CM:CONSTR:REPORT OF CONSULTATION 2330 12/11/17 1459 interface
[2017-12-11] VITALS (8 sets, daily range): BP systolic 80–163; BP diastolic 40–86
[2017-12-11 00:35] LABS: BASO # 0.1 10*3/uL (0.0-0.1); BASO % 0.7 % (0.0-1.0); EOS # 0.2 10*3/uL (0.0-0.4); EOS % 1.3 % (1.0-4.0); HEMOGLOBIN 13.2 g/dl (12.0-16.0); LYMPH % 8.6 % (27.0-41.0); MEAN CELL VOLUME 90.1 fl (81.0-99.0); MEAN CORPUSCULAR HGB 27.7 pg (27.0-31.0); MEAN CORPUSCULAR HGB CONC 30.7 g/dl (33.0-37.0); MEAN PLATELET VOLUME 11.5 fl (9.6-12.3); MONO # 0.7 10*3/uL (0.1-1.0); MONO % 6.1 % (3.0-9.0); NEUT # 9.9 10*3/uL (2.3-7.9); NEUT % 82.9 % (47.0-73.0); PLATELET COUNT AUTOMATED 189 10*3/uL (130-400); RED BLOOD COUNT 4.77 10*6/uL (4.10-5.10); RED CELL DISTRI WIDTH 15.8 % (0-14.5); WHITE BLOOD COUNT 11.9 10*3/uL (4.8-10.8)
[2017-12-11 00:49] LABS: INTERNATIONAL NORM RATIO 1.1 (2.0-3.5)
[2017-12-11 00:55] LABS: ALBUMIN 3.1 gm/dl (3.1-4.5); CREATININE 1.49 mg/dL (0.55-1.02); POTASSIUM 2.9 mmol/L (3.5-5.1); TOTAL PROTEIN 6.8 gm/dL (6.4-8.2); TROPONIN I 0.107 ng/ml (<0.045)
[2017-12-11 01:09] LABS: THYROID STIM HORMONE (HS) 4.55 uIU/ml (0.358-4.75)
[2017-12-11 06:54] LABS: CREATININE 1.44 mg/dL (0.55-1.02); POTASSIUM 3.4 mmol/L (3.5-5.1)
[2017-12-11 21:16] LABS: ABG BASE EXCESS -2.3 mmol/L (-2.0-2.0); ABG HCO3 24.5 mmol/l (22-26); ABG O2 SATURATION 84.9 % (95-97); ARTERIAL BLOOD GAS PCO2 50.4 mmHg (35-45); ARTERIAL BLOOD GAS PH 7.304 (7.35-7.45); ARTERIAL BLOOD GAS PO2 49.7 mmHg (80-90)
[2017-12-11 21:26] LABS: BILIRUBIN NEGATIVE (NEGATIVE); BLOOD 1+ (NEGATIVE); CLARITY CLEAR (CLEAR); COLOR YELLOW (YELLOW); GLUCOSE NEGATIVE (NEGATIVE); KETONE NEGATIVE (NEGATIVE); LEUKO ESTERASE NEGATIVE (NEGATIVE); NITRITE NEGATIVE (NEGATIVE); SPECIFIC GRAVITY 1.025 (1.005-1.030); UROBILINOGEN 0.2 E.U./dl (0.2-1.0)
[2017-12-11 21:43] LABS: BACTERIA TRACE; HYALINE CAST 0-2; WBC 0-2 wbc/hpf (0-5)
[2017-12-12] VITALS: BP 124/79
[2017-12-12 04:00] VITALS: BP 133/74
[2017-12-12 06:47] LABS: POTASSIUM 4.1 mmol/L (3.5-5.1)
[2017-12-12 06:54] LABS: CREATININE 1.58 mg/dL (0.55-1.02)
[2017-12-12 06:58] LABS: TROPONIN I 0.279 ng/ml (<0.045)
[2017-12-12 08:00] VITALS: BP 116/41
[2017-12-12 12:00] VITALS: BP 126/60
[2017-12-12 16:00] VITALS: BP 110/54
[2017-12-12 20:00] VITALS: BP 121/65
[2017-12-13] VITALS: BP 130/70
[2017-12-13 04:00] VITALS: BP 127/56
[2017-12-13 06:16] LABS: CREATININE 2.11 mg/dL (0.55-1.02); POTASSIUM 4.5 mmol/L (3.5-5.1)
[2017-12-13 08:00] VITALS: BP 140/72
[2017-12-13 12:00] VITALS: BP 131/44
[2017-12-13 16:00] VITALS: BP 138/58
[2017-12-13 19:56] VITALS: BP 124/73
[2017-12-14] VITALS: BP 133/78
[2017-12-14 08:00] VITALS: BP 115/49
[2017-12-14 12:00] VITALS: BP 142/59
[2017-12-14 16:00] VITALS: BP 123/56
[2017-12-14 20:00] VITALS: BP 147/65
[2017-12-15 00:19] VITALS: BP 139/59
[2017-12-15 07:38] LABS: ALBUMIN 2.8 gm/dl (3.1-4.5); CREATININE 1.91 mg/dL (0.55-1.02)
[2017-12-15 07:51] LABS: HEMATOCRIT 44.4 % (37.0-47.0); HEMOGLOBIN 13.7 g/dl (12.0-16.0); MEAN CELL VOLUME 86.2 fl (81.0-99.0); MEAN CORPUSCULAR HGB 26.6 pg (27.0-31.0); MEAN CORPUSCULAR HGB CONC 30.9 g/dl (33.0-37.0); MEAN PLATELET VOLUME 12.3 fl (9.6-12.3); PLATELET COUNT AUTOMATED 174 10*3/uL (130-400); RED BLOOD COUNT 5.15 10*6/uL (4.10-5.10); RED CELL DISTRI WIDTH 15.6 % (0-14.5)
[2017-12-15 07:53] LABS: OVALOCYTES FEW; PLATELET SUFFICIENCY NORMAL (NORMAL); TOTAL CELLS COUNTED 100 #CELLS
[2017-12-15 08:00] VITALS: BP 146/59
[2017-12-15 12:00] VITALS: BP 148/59
[2017-12-15 16:00] VITALS: BP 141/66
[2017-12-15 20:00] VITALS: BP 144/52
[2017-12-16] VITALS: BP 139/54
[2017-12-16 06:41] LABS: HEMATOCRIT 41.5 % (37.0-47.0); HEMOGLOBIN 12.6 g/dl (12.0-16.0); MEAN CELL VOLUME 87.4 fl (81.0-99.0); MEAN CORPUSCULAR HGB 26.5 pg (27.0-31.0); MEAN CORPUSCULAR HGB CONC 30.4 g/dl (33.0-37.0); MEAN PLATELET VOLUME 12.2 fl (9.6-12.3); PLATELET COUNT AUTOMATED 166 10*3/uL (130-400); RED BLOOD COUNT 4.75 10*6/uL (4.10-5.10); RED CELL DISTRI WIDTH 15.5 % (0-14.5); WHITE BLOOD COUNT 11.7 10*3/uL (4.8-10.8)
[2017-12-16 07:11] LABS: CREATININE 1.92 mg/dL (0.55-1.02); POTASSIUM 4.8 mmol/L (3.5-5.1); TOTAL PROTEIN 6.1 gm/dL (6.4-8.2)
[2017-12-16 07:58] LABS: PLATELET SUFFICIENCY NORMAL (NORMAL); TOTAL CELLS COUNTED 100 #CELLS
[2017-12-16 08:00] VITALS: BP 149/53
[2017-12-16 16:00] VITALS: BP 148/50
[2017-12-16] MEDS ORDERED: AUGMENTIN 875-875 MG PO (18:08)
[2017-12-16] MEDS ORDERED: TYLENOL EXTRA500 M2 PO (18:08)
[2017-12-16] MEDS ORDERED: CARDIZEM CD120 M2 PO (18:11)
[2017-12-16] MEDS ORDERED: PACERONE200 MG PO (18:25)
== END 2017-12-16 18:54 | DRG 291 ==
LOC: ED 22:31 → EDHOLD 12-11 01:43 → 4E 12-11 01:43 → ICCU 12-11 01:43 → 5E 12-11 02:04 → ICCU 12-11 20:36 → 4E 12-13 21:13
PROVIDERS: Emergency Medicine Emergency Medical Services; Internal Medicine; Internal Medicine Cardiovascular Disease; Internal Medicine Critical Care Medicine
PROC: 5A09357 Assistance with Respiratory Ventilation, Less than 24 Consecutive Hours, Continuous Positive Airway Pressure (ICD-10-PCS; principal; 2017-12-12)
PROC: 5A09357 Assistance with Respiratory Ventilation, Less than 24 Consecutive Hours, Continuous Positive Airway Pressure (ICD-10-PCS; 2017-12-13)
DX: I13.0 Hypertensive heart and chronic kidney disease with heart failure and stage 1 through stage 4 chronic kidney disease, or unspecified chronic kidney disease (principal); J96.02 Acute respiratory failure with hypercapnia; E43 Unspecified severe protein-calorie malnutrition; N17.9 Acute kidney failure, unspecified; I95.9 Hypotension, unspecified; E11.21 Type 2 diabetes mellitus with diabetic nephropathy; I48.0 Paroxysmal atrial fibrillation; E66.01 Morbid (severe) obesity due to excess calories; E11.22 Type 2 diabetes mellitus with diabetic chronic kidney disease; I48.2 Chronic atrial fibrillation; I50.33 Acute on chronic diastolic (congestive) heart failure; J96.21 Acute and chronic respiratory failure with hypoxia; J44.1 Chronic obstructive pulmonary disease with (acute) exacerbation; J45.901 Unspecified asthma with (acute) exacerbation; Z68.43 Body mass index [BMI] 50.0-59.9, adult; Z99.81 Dependence on supplemental oxygen; G47.33 Obstructive sleep apnea (adult) (pediatric); Z66 Do not resuscitate; Z51.5 Encounter for palliative care; N18.3 Chronic kidney disease, stage 3 (moderate); I89.0 Lymphedema, not elsewhere classified; I87.2 Venous insufficiency (chronic) (peripheral); R62.7 Adult failure to thrive; E87.6 Hypokalemia; E78.2 Mixed hyperlipidemia; K21.9 Gastro-esophageal reflux disease without esophagitis; E03.9 Hypothyroidism, unspecified; F41.1 Generalized anxiety disorder; Z88.2 Allergy status to sulfonamides; Z87.01 Personal history of pneumonia (recurrent); Z90.49 Acquired absence of other specified parts of digestive tract; Z90.721 Acquired absence of ovaries, unilateral; Z83.3 Family history of diabetes mellitus; Z82.3 Family history of stroke; Z82.49 Family history of ischemic heart disease and other diseases of the circulatory system; Z79.4 Long term (current) use of insulin

== ENCOUNTER → 2019-04-26 | Outpatient (CLI) | payer MEDICARE ==
[~2019-04-26] MED LIST changes: +AUGMENTIN 875-875 MG PO; +CARDIZEM CD120 M2 PO; +TYLENOL EXTRA500 M2 PO
== END | disposition home or self-care (01) ==
LOC: CT 00:12
DX: J90 Pleural effusion, not elsewhere classified (principal); I51.7 Cardiomegaly; I10 Essential (primary) hypertension; E11.9 Type 2 diabetes mellitus without complications; Z90.49 Acquired absence of other specified parts of digestive tract; Z90.89 Acquired absence of other organs

== ENCOUNTER 2020-06-04 08:23 | Inpatient (IN) | payer MEDICARE ==
[~2020-06-04] VITALS: Ht 160 cm; Wt 117.7 kg
[2020-06-04 08:23] VITALS: BP 158/67
[2020-06-04 08:57] LABS: BASO # 0.1 10*3/uL (0.0-0.1); BASO % 0.5 % (0.0-1.0); EOS # 0.1 10*3/uL (0.0-0.4); EOS % 1.2 % (1.0-4.0); LYMPH # 0.7 10*3/uL (1.3-4.4); LYMPH % 7.2 % (27.0-41.0); MEAN CELL VOLUME 99.4 fl (81.0-99.0); MEAN CORPUSCULAR HGB 29.5 pg (27.0-31.0); MEAN CORPUSCULAR HGB CONC 29.7 g/dl (33.0-37.0); MEAN PLATELET VOLUME 9.7 fl (9.6-12.3); MONO # 1.3 10*3/uL (0.1-1.0); MONO % 13.7 % (3.0-9.0); NEUT # 7.3 10*3/uL (2.3-7.9); PLATELET COUNT AUTOMATED 274 10*3/uL (130-400); RED BLOOD COUNT 3.42 10*6/uL (4.10-5.10); RED CELL DISTRI WIDTH 14.4 % (0-14.5); WHITE BLOOD COUNT 9.7 10*3/uL (4.8-10.8)
[2020-06-04 09:12] LABS: ALKALINE PHOSPHATASE 88 U/L (45-117); BUN 22 mg/dl (7-24); CHLORIDE 101 mmol/L (98-107); CREATININE 1.06 mg/dL (0.55-1.02); POTASSIUM 4.2 mmol/L (3.5-5.1); SGOT/AST 11 IU/L (3-35); SGPT/ALT 8 U/L (12-78); SODIUM 144 mmol/L (136-145); TOTAL PROTEIN 6.1 gm/dL (6.4-8.2)
--- NOTE | 2020-06-04 09:48 | NUR ---
PT ON THE PHONE WITH HER EMILEE COOK.
--- NOTE | 2020-06-04 10:22 | NUR ---
TITRATED 02 DOWN TO 4L AND PT SPO2 WAS 85%. 02 PLACED BACK ON 6L VIA NC.
--- NOTE | 2020-06-04 11:07 | NUR ---
PT HAS DRESSINGS ON THE OUTSIDE OF BOTH FEET. SHE STATES THAT THEY ARE JUST THERE FOR PREVENTION. UNDER DRESSINGS OBSERVED AND NO WOUNDS PRESENT.
--- NOTE | 2020-06-04 11:17 | NUR ---
PT RESTING IN BED WITH EYES CLOSED.
[2020-06-04 11:18] VITALS: BP 146/62
[2020-06-04 12:18] VITALS: BP 133/74
--- NOTE | 2020-06-04 12:19 | NUR ---
RESTING WITH EYES CLOSED. RESPS ARE EASY. CALL LIGHT IN REACH.
--- NOTE | 2020-06-04 14:09 | NUR ---
PT RESTING IN BED WITH EYES CLOSED. RESPIRATIONS EASY AND REGULAR.
[2020-06-04 14:11] VITALS: BP 161/68
--- NOTE | 2020-06-04 16:45 | NUR ---
REPORT GIVEN TO ZACH ON 5TH FLOOR
[2020-06-04 17:15] VITALS: BP 162/87
--- NOTE | 2020-06-04 17:15 | NUR ---
MSTime: 1715 A 75 year old FEMALE admitted to 5E under services of DR. ARGELIA FRYE,SE. Pt. arrived via ambulance from ER. Chief complaint: INCREASED SHORTNESS OF BREATH. ZACH CORDOBA.
[2020-06-04] MEDS ORDERED: BREO ELLIPTA 21 EACH INH (18:08)
[2020-06-04] MEDS ORDERED: BUMETANIDE1 MG PO (18:08)
[2020-06-04] MEDS ORDERED: BUMETANIDE2 MG PO (18:09)
[2020-06-04] MEDS ORDERED: DEPAKOTE DR500 MG PO ×2 (18:10→18:11)
[2020-06-04] MEDS ORDERED: COLACE100 MG PO (18:20)
[2020-06-04] MEDS ORDERED: LISINOPRIL5 MG PO (18:21)
[2020-06-04] MEDS ORDERED: LEVOTHYROXINE75 MCG PO (18:21)
[2020-06-04] MEDS ORDERED: OMEPRAZOLE20 M2 PO (18:23)
[2020-06-04] MEDS ORDERED: TRINTELLIX20 MG PO (18:25)
--- NOTE | 2020-06-04 19:55 | NUR ---
NOTIFIED REGARDING INCREASED SOB. RESPIRATORY IN TO SEE PATIENT. NEW ORDERS RECEIVED FOR BIPAP. RT MADE AWARE.
[2020-06-04 20:00] VITALS: BP 157/68
--- NOTE | 2020-06-04 20:45 | NUR ---
PATIENT APPEARS MUCH MORE COMFORTABLE ON THE BIPAP. SPOKE WITH PATIENTS POA AND EXPLAINED WHAT WAS GOING ON. SHE STATED THIS HAS HAPPENED BEFORE AND HAD TO BE PUT ON THE BIPAP. THE PATIENT ALSO STATES SHE HAS FILLED UP WITH FLUID BEFORE AND THAT THIS IS NOT NEW. +4 EDEMA NOTED TO BLE, REDDENED. PATIENT STATED HER LEGS ARE ALWAYS LIKE THAT. LUNGS ARE DIMINISHED R>L WITH WHEEZES NOTED. PATIENT PLEASANT AND COOPERATIVE, BUT ANXIOUS. PATIENT HAD A SMALL BOWEL MOVEMENT ON BEDSIDE. EXPLAINED TO PATIENT THAT RIGHT NOW WITH HOW SHORT OF BREATH SHE WAS SHE NEEDS TO REST IN THE BED AND WE CAN DO A BEDPAN IF NEEDED. PATIENT VERBALIZED UNDERSTANDING.
--- NOTE | 2020-06-04 21:43 | NUR ---
PATIENT MAINTAINED ON BIPAP. APPEARS MUCH MORE COMFORTABLE. NO DISTRESS NOTED.
--- NOTE | 2020-06-04 22:30 | NUR ---
PATIENT TOOK BIPAP OFF AT THIS TIME. STATES SHE NO LONGER WANTS IT ON. PATIENT IN MILD DISTRESS. 6L CANNULA REPLACED. PATIENT STATES SHE FEELS BETTER OFF IT, BUT PATIENT IS TACHYPNEIC. SHE STATED SHE JUST NEEDS TO RELAX. CALL LIGHT WTIHIN REACH, BED ALARM INTACT, WILL MONITOR
--- NOTE | 2020-06-04 23:00 | NUR ---
PATIENT AT THIS TIME ONLY SATTING 91% ON 6L NC. PATIENT PLACED ON 50% VENTURI AND CAME UP TO 95%.
[2020-06-05] VITALS: BP 143/84
--- NOTE | 2020-06-05 03:59 | NUR ---
24 HR chart check completed.
--- NOTE | 2020-06-05 04:22 | NUR ---
PATIENT SLEEPING, NO DISTRESS NOTED. RESPIRATIONS ARE MINIMALLY LABORED ON 50% VENTURI. CALL LIGHT WITHIN REACH, WILL MONITOR
[2020-06-05 07:38] LABS: BASO % 0.2 % (0.0-1.0); LYMPH # 0.3 10*3/uL (1.3-4.4); MEAN CORPUSCULAR HGB 29.7 pg (27.0-31.0); MEAN CORPUSCULAR HGB CONC 29.7 g/dl (33.0-37.0); MONO # 0.6 10*3/uL (0.1-1.0); MONO % 5.7 % (3.0-9.0); NEUT # 9.6 10*3/uL (2.3-7.9); NEUT % 89.5 % (47.0-73.0); PLATELET COUNT AUTOMATED 286 10*3/uL (130-400); RED CELL DISTRI WIDTH 14.1 % (0-14.5); WHITE BLOOD COUNT 10.7 10*3/uL (4.8-10.8)
--- NOTE | 2020-06-05 07:40 | NUR ---
PATIENT REFUSES BI-PAP AT THIS TIME, ON VENTURI MASK @ 50%-PULSE OX 94%.
[2020-06-05 07:45] LABS: CREATININE 1.09 mg/dL (0.55-1.02)
[2020-06-05 08:00] VITALS: BP 158/73
--- NOTE | 2020-06-05 08:00 | NUR ---
LAB CALLED WITH CRITICAL CO2 OF 43.
--- NOTE | 2020-06-05 08:10 | NUR ---
DR STOUT ON UNIT AND MADE AWARE OF CO2
--- NOTE | 2020-06-05 08:15 | NUR ---
DR STOUT IN TO SEE PT. ABDOMINAL BREATHING NOTED, PT ON VENTURI MASK. EDEMA NOTED TO BLE AND REDNESS TO LLE. DR STOUT DISCUSSED CODE STATES WITH PT. PT STATES UNDERSTANDING AND WOULD LIKE TO BE A DNRCC. DR STOUT STATES ORDERS TO FOLLOW.
--- NOTE | 2020-06-05 09:00 | NUR ---
CM in to see patient. She is a LTC resident at [facility]. business continuity planner/social media coordinator following for return to [facility] once medically stable.
--- NOTE | 2020-06-05 09:24 | NUR ---
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 Patient is ok to return but [facility] requires a negative Covid-19 result prior to discharge.
[2020-06-05 12:00] VITALS: BP 140/92
[2020-06-05 16:00] VITALS: BP 154/71
[2020-06-05 20:00] VITALS: BP 144/64
--- NOTE | 2020-06-05 23:51 | NUR ---
PATIENT REFUSING BIPAP. 50% VENTI MASK IN USE. SPO2 95%
[2020-06-06] VITALS: BP 109/46
--- NOTE | 2020-06-06 01:00 | NUR ---
PT RESTING CHAIR , NO DISTRESS NOTED. WILL MONITOR
--- NOTE | 2020-06-06 06:53 | NUR ---
PT RESTING IN BED/ NO VOICED C/O. CALL LIGHT WITHIN REACH
[2020-06-06 08:00] VITALS: BP 139/60
[2020-06-06 08:11] LABS: CREATININE 1.39 mg/dL (0.55-1.02); POTASSIUM 4.5 mmol/L (3.5-5.1)
--- NOTE | 2020-06-06 09:13 | NUR ---
PT. TITRATED TO NC AT 5L, RN NOTIFIED.
--- NOTE | 2020-06-06 10:31 | NUR ---
FINANCIAL REPORTING CONSULTANT FAXED UPDATES TO [facility].
[2020-06-06 12:00] VITALS: BP 132/64
[2020-06-06 16:00] VITALS: BP 136/78
[2020-06-06 20:00] VITALS: BP 101/57
--- NOTE | 2020-06-06 20:15 | NUR ---
PT RESTING IN BED. REPOSITIONED IN BED. RESP-EASY AND REGULAR. OXYGEN IN USE. NO C/O AT THIS TIME. CALL LIGHT IN REACH.
--- NOTE | 2020-06-06 21:30 | NUR ---
RESTING IN BED WITH EYES CLOSED. RESP-EASY AND REGULAR. OXYGEN IN USE. CALL LIGHT IN REACH.
--- NOTE | 2020-06-06 23:08 | NUR ---
PATIENT REFUSES BIPAP
[2020-06-07] VITALS: BP 126/72
--- NOTE | 2020-06-07 | NUR ---
PT SLEEPING IN BED, RESP-EASY AND REGULAR. OXYGEN IN USE. CALL LIGHT IN REACH. SEE SHIFT ASSESSMENT.
--- NOTE | 2020-06-07 05:49 | NUR ---
TOLERATED ROUTINE MED WITH NO PROBLEM. NO C/O AT THIS TIME. OXYGEN IN USE. BSG-[id number], SEE EMAR. CALL LIGHT IN REACH.
[2020-06-07 07:02] LABS: CREATININE 1.42 mg/dL (0.55-1.02); POTASSIUM 3.6 mmol/L (3.5-5.1)
[2020-06-07 08:00] VITALS: BP 111/66
--- NOTE | 2020-06-07 10:22 | NUR ---
DR. RUBY NOTIFIED OF CONSULT.
[2020-06-07 12:00] VITALS: BP 126/72
[2020-06-07 12:25] LABS: BODY FLUID WBC 2393 /uL
[2020-06-07 13:37] LABS: BF LYMPHOCYTES 76 %; BF MACROPHAGES 23 %
[2020-06-07 16:00] VITALS: BP 98/51
--- NOTE | 2020-06-07 16:50 | NUR ---
I TURNED DOWN O2 FROM 6 TO 4 L. PT SPO2 97% ON 4 LNC.
--- NOTE | 2020-06-07 19:30 | NUR ---
TOOK OVER CARE OF PT. PT SLEEPING IN BED, RESPIRATIONS UNLABORED ON NC. NO S/S OF DISTRESS. CALL LIGHT IN REACH.
[2020-06-07 20:00] VITALS: BP 113/53
--- NOTE | 2020-06-08 | NUR ---
PT RESTING IN BED. NO S/S OF DISTRESS NOTED. RESPIRATIONS UNLABORED ON 4L NC. CHEST TUBE IN TACT, DRAINAGE SET UP PER ORDERS. ALL NEEDS CURRENTLY MET. SAFETY MEASURES IN PLACE, CALL LIGHT IN REACH.
[2020-06-08 01:00] VITALS: BP 140/88
--- NOTE | 2020-06-08 06:35 | NUR ---
PT GIVEN AM MEDS, TAKEN WITH EASE. BLOOD SUGAR OBTAINED, 125-NO COVERAGE NEEDED. PT DENIES SOB OR CHEST PAIN. SUPPLEMENTAL OXYGEN IN PLACE VIA NC AT 4L. RESPIRATIONS UNLABORED. WILL CONTINUE TO MONITOR. CALL LIGHT IN REACH.
[2020-06-08 06:40] LABS: HEMATOCRIT 34.4 % (37.0-47.0); MEAN CELL VOLUME 99.4 fl (81.0-99.0); MEAN CORPUSCULAR HGB 29.5 pg (27.0-31.0); MEAN CORPUSCULAR HGB CONC 29.7 g/dl (33.0-37.0); MEAN PLATELET VOLUME 9.7 fl (9.6-12.3); PLATELET COUNT AUTOMATED 316 10*3/uL (130-400); RED BLOOD COUNT 3.46 10*6/uL (4.10-5.10); RED CELL DISTRI WIDTH 14.8 % (0-14.5); WHITE BLOOD COUNT 10.8 10*3/uL (4.8-10.8)
[2020-06-08 06:55] LABS: CREATININE 1.3 mg/dL (0.55-1.02); POTASSIUM 3.4 mmol/L (3.5-5.1)
[2020-06-08 08:00] VITALS: BP 145/62
--- NOTE | 2020-06-08 08:07 | NUR ---
24 HR chart check completed.
[2020-06-08 08:38] LABS: BASOPHILS 1 % (0-1); PLATELET SUFFICIENCY NORMAL (NORMAL); TOTAL CELLS COUNTED 100 #CELLS
--- NOTE | 2020-06-08 10:00 | NUR ---
RESTING IN BED WITH NO ACUTE DISTRESS NOTED. RESPIRATIONS EASY. LUNGS DIMINISHED. PULSE OX 100% 3L HUMIDIFIED. NON-PROD COUGH. CHEST TUBE MAINTAINED RIGHT POSTERIOR BACK. PATTEN PATENT. BLE EDEMA NOTED. CALL LIGHT WITHIN REACH. NO VOICED COMPLAINTS. BED ALARM MAINTAINED FOR SAFETY
[2020-06-08 12:00] VITALS: BP 121/74
[2020-06-08 16:00] VITALS: BP 136/80; BP 136/90
--- NOTE | 2020-06-08 16:00 | NUR ---
DOZING INTERMITTENTLY. NO DISTRESS NOTED. RESPIRATIONS EASY. VSS. CALL LIGHT WITHIN REACH. BED ALARM MAINTAINED FOR SAFETY
--- NOTE | 2020-06-08 19:00 | NUR ---
PATIENT RESTING COMFORTABLY, VOICED NO COMPLAINTS. CHEST TUBE CANNISTER MARKED BY PREVIOUS SHIFT NURSE, NO NEW OUTPUT NOTED. CHEST TUBE SUCTIONING APPROPIATE AT THIS TIME, NO LEAK PRESENT. NO OVERT DISTRESS NOTED, RESP ARE EASY AND REGULAR ON O2 NC. BED IS LOCKED IN LOWEST POSITION, ALARM MAINTAINED. CALL LIGHT WITHIN REACH
[2020-06-08 20:00] VITALS: BP 115/55
--- NOTE | 2020-06-08 23:00 | NUR ---
Pt does not want to wear the BiPap at this time. Pt remains on 2L NC.
[2020-06-09] VITALS: BP 109/57
--- NOTE | 2020-06-09 05:49 | NUR ---
20 CCs OUTPUT NOTED FOR 11-7 SHIFT. CANNISTER MARKED AND OUTPUT TO BE RECORDED.
[2020-06-09 06:44] LABS: ALBUMIN 1.7 gm/dl (3.1-4.5); POTASSIUM 3.4 mmol/L (3.5-5.1)
[2020-06-09 06:47] LABS: HEMATOCRIT 31.5 % (37.0-47.0); MEAN CELL VOLUME 97.2 fl (81.0-99.0); MEAN CORPUSCULAR HGB 29.6 pg (27.0-31.0); MEAN CORPUSCULAR HGB CONC 30.5 g/dl (33.0-37.0); MEAN PLATELET VOLUME 10.1 fl (9.6-12.3); PLATELET COUNT AUTOMATED 284 10*3/uL (130-400); RED BLOOD COUNT 3.24 10*6/uL (4.10-5.10); RED CELL DISTRI WIDTH 14.6 % (0-14.5); WHITE BLOOD COUNT 12.5 10*3/uL (4.8-10.8)
[2020-06-09 06:50] LABS: CREATININE 1.14 mg/dL (0.55-1.02); TOTAL PROTEIN 5.1 gm/dL (6.4-8.2)
[2020-06-09 07:33] LABS: TOTAL CELLS COUNTED 100 #CELLS
[2020-06-09 07:34] LABS: OVALOCYTES FEW; PLATELET SUFFICIENCY NORMAL (NORMAL)
[2020-06-09 08:00] VITALS: BP 130/55
--- NOTE | 2020-06-09 09:00 | NUR ---
MANAGER CARDIOVASCULAR FAXED UPDATES TO [facility] FOR REVIEW. PATIENT IS LTC AT [facility] AND CAN RETURN WHEN MEDICALLY STABLE.
[2020-06-09 12:00] VITALS: BP 138/62
[2020-06-09 16:00] VITALS: BP 103/48
[2020-06-09 20:00] VITALS: BP 95/41
[2020-06-09 21:00] VITALS: BP 90/42
--- NOTE | 2020-06-09 21:00 | NUR ---
BP 90/42 MANUALLY WHEN TAKEN ON R FOREARM. PT RUNNING LOW 90S-100S/40S ALL AFTERNOON PER AM SHIFT RN. PT IS AWAKE, ALERT, AND ORIENTED X3. PT DENIES ANY NEW/WORSENING SYMPTOMS. PT ENCOURAGED TO USE CALL LIGHT IF NEW S/S ARISE. WILL MONITOR. CALL LIGHT IN REACH. BED ALARM INTACT.
--- NOTE | 2020-06-09 21:49 | NUR ---
40 CCs OF OUTPUT NOTED IN CHEST TUBE SYSTEM. DRESSING TO SITE DRY/INTACT. TUBE ALSO INTACT. PT DENIES ANY NEEDS AT PRESENT TIME. WILL MONITOR. CALL LIGHT IN REACH. BED ALARM ITNACT.
--- NOTE | 2020-06-09 23:00 | NUR ---
Pt does not want to wear the BiPap at this time. Pt remains on 2L NC. Will ask to D/C BiPap in the morning.
[2020-06-10] VITALS: BP 96/46
--- NOTE | 2020-06-10 00:35 | NUR ---
PT SET OFF BED ALARM. WANTS TO SIT UP IN CHAIR. PT ASSISTED FROM BED TO CHAIR. PT AGREES TO PUT LEGS UP AFTER SOME ENCOURAGEMENT FROM STAFF. BODY ALARM APPLIED. RN AGAIN EDUCATED PT ABOUT S/S TO NOTIFY RN. DISCUSSED VITALS CHECKS BP IS LOW. PT STATES "I FEEL A WHOLE LOT BETTER TODAY, WHY YOU GOTTA DO THIS NOW?" PT REQUESTING TO SLEEP FOR A WHILE IN CHAIR. WILL CONTINUE TO MONITOR. CALL LIGHT IN REACH. BODY ALARM INTACT.
[2020-06-10 02:30] VITALS: BP 109/42
--- NOTE | 2020-06-10 05:42 | NUR ---
CHEST TUBE SYSTEM MARKED. PT HAD 40 ML OUTPUT ON 05-31. DRESSING TO SITE REMAINS DRY AND INTACT. POX REMAINS 99% ON 2L NC. HR 98 AT THIS TIME. WILL MONITOR. CALL LIGHT IN REACH. BODY ALARM INTACT.
--- NOTE | 2020-06-10 07:08 | NUR ---
24 HR chart check completed.
[2020-06-10 08:00] VITALS: BP 109/43
--- NOTE | 2020-06-10 09:00 | NUR ---
CM in to see patient. She is a LTC resident at [facility]. assistant media planner/group social worker following for return to [facility] once medically stable.
[2020-06-10 12:00] VITALS: BP 117/41
[2020-06-10 16:00] VITALS: BP 119/41
[2020-06-10 20:00] VITALS: BP 102/51
[2020-06-11] VITALS: BP 110/77
--- NOTE | 2020-06-11 01:03 | NUR ---
PT AWAKE IN BED. DENIES ANY NEEDS AT PRESENT TIME. WILL MONITOR. CALL LIGHT IN REACH. BED ALARM INTACT.
[2020-06-11 06:45] LABS: HEMATOCRIT 31.3 % (37.0-47.0); MEAN CELL VOLUME 98.7 fl (81.0-99.0); MEAN CORPUSCULAR HGB 29.7 pg (27.0-31.0); MEAN PLATELET VOLUME 9.9 fl (9.6-12.3); PLATELET COUNT AUTOMATED 233 10*3/uL (130-400); RED BLOOD COUNT 3.17 10*6/uL (4.10-5.10); RED CELL DISTRI WIDTH 14.8 % (0-14.5); WHITE BLOOD COUNT 12.1 10*3/uL (4.8-10.8)
[2020-06-11 07:00] LABS: CREATININE 1.19 mg/dL (0.55-1.02); POTASSIUM 4.8 mmol/L (3.5-5.1)
[2020-06-11 08:00] VITALS: BP 115/66
[2020-06-11 08:32] LABS: BASOPHILS 1 % (0-1); PLATELET SUFFICIENCY NORMAL (NORMAL); TOTAL CELLS COUNTED 100 #CELLS
--- NOTE | 2020-06-11 09:00 | NUR ---
CM in to see patient. She is a LTC resident at [facility]. shutdown planner/social media assistant following for return to [facility] once medically stable.
--- NOTE | 2020-06-11 10:00 | NUR ---
DR RUBY IN TO SEE PT. CHEST TUBE REMOVED, SITE SUTURED. SUTURE NEEDS REMOVED IN 5 DAYS. DRSG APPLIED TO SITE. PT TOLERATED WELL. CALL LIGHT IN REACH. WILL MONITOR
[2020-06-11 12:00] VITALS: BP 94/77
[2020-06-11 16:00] VITALS: BP 96/60
--- NOTE | 2020-06-11 16:00 | NUR ---
Patient resting quietly with no c/o discomfort. Respirations easy and regular. Vital signs stable. No overt distress. MAGNUS SINHA R
--- NOTE | 2020-06-11 19:32 | NUR ---
PT ASSISTED FROM CHAIR TO BED AT THIS TIME. PT PULLED UP AND REPOSITIONED FOR COMFORT. DENIES ANY NEEDS A THIS TIME. WILL MONITOR. CALL LIGHT IN REACH.
[2020-06-11 20:00] VITALS: BP 115/37
[2020-06-12] VITALS: BP 116/39
[2020-06-12 08:00] VITALS: BP 113/63
[2020-06-12] MEDS ORDERED: CEFUROXIME AXE250 MG PO (08:57)
[2020-06-12] MEDS ORDERED: BUMETANIDE1 MG PO (08:57)
[2020-06-12] MEDS ORDERED: ACETAZOLAMIDE250 MG PO (08:57)
--- NOTE | 2020-06-12 09:26 | NUR ---
PATTEN REMOVED PER ORDERS. PT TOLERATED WELL.
--- NOTE | 2020-06-12 09:42 | NUR ---
PROGRAM ADVOCATE NOTIFIED OF PATIENT DISCHARGE. PROGRAM ADVOCATE SPOKE WITH [facility]. PROGRAM ADVOCATE SPOKE WITH [facility] AND ARRANGED FOR A 1PM TRANSPORT. PROGRAM ADVOCATE NOTIFIED WC ROBERTO, [facility], AND PATIENTS AUNT JOEY. WILL FAX DISCHARGE ORDERS TO [facility].
--- NOTE | 2020-06-12 12:30 | NUR ---
REPORT CALLED TO TORI AT [facility].
--- NOTE | 2020-06-12 13:21 | NUR ---
Discharge instructions reviewed with patient/family. Patient receptive and verbalizes understanding. Follow-up care arranged. Written instructions given to patient/family. MAGNUS SINHA
== END 2020-06-12 13:55 | disposition other institution (70) | DRG 291 ==
LOC: ED 08:23 → EDHOLD 10:32 → 5E 10:32
PROVIDERS: Emergency Medicine; Internal Medicine Critical Care Medicine; ADMIT Internal Medicine; ATTEND Internal Medicine
PROC: 0W9930Z Drainage of Right Pleural Cavity with Drainage Device, Percutaneous Approach (ICD-10-PCS; principal; 2020-06-07)
DX: I13.0 Hypertensive heart and chronic kidney disease with heart failure and stage 1 through stage 4 chronic kidney disease, or unspecified chronic kidney disease (principal); I50.33 Acute on chronic diastolic (congestive) heart failure; J96.01 Acute respiratory failure with hypoxia; E43 Unspecified severe protein-calorie malnutrition; E87.3 Alkalosis; I48.21 Permanent atrial fibrillation; J44.1 Chronic obstructive pulmonary disease with (acute) exacerbation; J91.8 Pleural effusion in other conditions classified elsewhere; Z68.42 Body mass index [BMI] 45.0-49.9, adult; I89.0 Lymphedema, not elsewhere classified; Z66 Do not resuscitate; Z51.5 Encounter for palliative care; F41.1 Generalized anxiety disorder; E03.9 Hypothyroidism, unspecified; N18.30 Chronic kidney disease, stage 3 unspecified; G47.33 Obstructive sleep apnea (adult) (pediatric); E66.01 Morbid (severe) obesity due to excess calories; R62.7 Adult failure to thrive; E87.6 Hypokalemia; E11.22 Type 2 diabetes mellitus with diabetic chronic kidney disease; G40.909 Epilepsy, unspecified, not intractable, without status epilepticus; F32.9 Major depressive disorder, single episode, unspecified; Z20.828 Contact with and (suspected) exposure to other viral communicable diseases; Z79.01 Long term (current) use of anticoagulants; Z88.2 Allergy status to sulfonamides; Z90.49 Acquired absence of other specified parts of digestive tract; Z82.49 Family history of ischemic heart disease and other diseases of the circulatory system; Z82.3 Family history of stroke; Z79.899 Other long term (current) drug therapy

== ENCOUNTER 2021-03-24 12:10 | Inpatient (IN) | payer MEDICARE ==
[~2021-03-24] VITALS: Ht 160 cm; Wt 116.2 kg
[~2021-03-24 12:10] MED LIST changes: +ACETAZOLAMIDE250 MG PO; +BUMETANIDE2 MG PO; +CEFUROXIME AXE250 MG PO; +COLACE100 MG PO; +DEPAKOTE DR500 MG PO; +LEVOTHYROXINE75 MCG PO; +LISINOPRIL5 MG PO; +TRINTELLIX20 MG PO
[2021-03-24 12:12] VITALS: BP 125/40
[2021-03-24 13:08] LABS: BASO % 0.2 % (0.0-1.0); EOS # 0.1 10*3/uL (0.0-0.4); EOS % 0.9 % (1.0-4.0); HEMATOCRIT 34.9 % (37.0-47.0); LYMPH # 0.5 10*3/uL (1.3-4.4); LYMPH % 7.2 % (27.0-41.0); MEAN CELL VOLUME 95.6 fl (81.0-99.0); MEAN CORPUSCULAR HGB 29.3 pg (27.0-31.0); MEAN CORPUSCULAR HGB CONC 30.7 g/dl (33.0-37.0); MEAN PLATELET VOLUME 11.3 fl (9.6-12.3); MONO # 0.6 10*3/uL (0.1-1.0); MONO % 9.8 % (3.0-9.0); NEUT # 5.3 10*3/uL (2.3-7.9); NEUT % 81.6 % (47.0-73.0); PLATELET COUNT AUTOMATED 135 10*3/uL (130-400); RED BLOOD COUNT 3.65 10*6/uL (4.10-5.10); RED CELL DISTRI WIDTH 14.6 % (0-14.5); WHITE BLOOD COUNT 6.4 10*3/uL (4.8-10.8)
[2021-03-24 13:30] LABS: ALBUMIN 1.9 gm/dl (3.1-4.5); ALKALINE PHOSPHATASE 83 U/L (45-117); BUN 25 mg/dl (7-24); CHLORIDE 110 mmol/L (98-107); CREATININE 1.06 mg/dL (0.55-1.02); POTASSIUM 3.3 mmol/L (3.5-5.1); SGOT/AST 13 IU/L (3-35); SGPT/ALT 15 U/L (12-78); SODIUM 143 mmol/L (136-145); TOTAL PROTEIN 5.3 gm/dL (6.4-8.2)
[2021-03-24 17:50] VITALS: BP 163/61
[2021-03-24] MEDS ORDERED: MILK OF MA400 MG/5 M PO (18:54)
[2021-03-24] MEDS ORDERED: ZOFRAN4 MG PO (18:55)
[2021-03-24] MEDS ORDERED: Ipratropium Brom3 ML INH (18:55)
[2021-03-24] MEDS ORDERED: ROBITUSSIN DM 110 ML PO (18:56)
[2021-03-24] MEDS ORDERED: MIRALAX17 GM PO (18:56)
[2021-03-24] MEDS ORDERED: TOPROL XL50 M1 PO (18:58)
[2021-03-24 20:00] VITALS: BP 129/47
[2021-03-25] VITALS: BP 132/81
[2021-03-25 05:19] LABS: BUN 23 mg/dl (7-24); CHLORIDE 113 mmol/L (98-107); CREATININE 0.82 mg/dL (0.55-1.02); POTASSIUM 3.7 mmol/L (3.5-5.1); SODIUM 146 mmol/L (136-145)
[2021-03-25 06:07] LABS: BASO % 0.2 % (0.0-1.0); EOS % 0.2 % (1.0-4.0); HEMATOCRIT 36.1 % (37.0-47.0); LYMPH # 0.4 10*3/uL (1.3-4.4); MEAN CELL VOLUME 97.8 fl (81.0-99.0); MEAN CORPUSCULAR HGB 29.3 pg (27.0-31.0); MEAN CORPUSCULAR HGB CONC 29.9 g/dl (33.0-37.0); MEAN PLATELET VOLUME 12.2 fl (9.6-12.3); MONO # 0.4 10*3/uL (0.1-1.0); MONO % 7.6 % (3.0-9.0); NEUT % 83.6 % (47.0-73.0); PLATELET COUNT AUTOMATED 134 10*3/uL (130-400); RED BLOOD COUNT 3.69 10*6/uL (4.10-5.10); RED CELL DISTRI WIDTH 14.4 % (0-14.5); WHITE BLOOD COUNT 4.7 10*3/uL (4.8-10.8)
[2021-03-25 08:00] VITALS: BP 133/80
[2021-03-25 12:00] VITALS: BP 104/50
[2021-03-25 20:00] VITALS: BP 123/44
[2021-03-26] VITALS: BP 140/43
[2021-03-26 06:28] LABS: BASO % 0.1 % (0.0-1.0); HEMATOCRIT 33.1 % (37.0-47.0); LYMPH # 0.6 10*3/uL (1.3-4.4); MEAN CORPUSCULAR HGB 29.7 pg (27.0-31.0); MEAN CORPUSCULAR HGB CONC 31.4 g/dl (33.0-37.0); MEAN PLATELET VOLUME 11.7 fl (9.6-12.3); MONO # 0.4 10*3/uL (0.1-1.0); MONO % 4.6 % (3.0-9.0); NEUT # 6.9 10*3/uL (2.3-7.9); NEUT % 87.7 % (47.0-73.0); PLATELET COUNT AUTOMATED 170 10*3/uL (130-400); RED CELL DISTRI WIDTH 14.3 % (0-14.5); WHITE BLOOD COUNT 7.8 10*3/uL (4.8-10.8)
[2021-03-26 06:41] LABS: MEAN CELL VOLUME 94.6 fl (81.0-99.0)
[2021-03-26 07:02] LABS: BUN 24 mg/dl (7-24); CHLORIDE 109 mmol/L (98-107); CREATININE 0.88 mg/dL (0.55-1.02); POTASSIUM 3.4 mmol/L (3.5-5.1); SODIUM 140 mmol/L (136-145)
[2021-03-26 08:00] VITALS: BP 143/58
[2021-03-26 12:00] VITALS: BP 134/42
[2021-03-26 20:00] VITALS: BP 115/40
[2021-03-27] VITALS: BP 125/50
[2021-03-27 07:04] LABS: BASO % 0.1 % (0.0-1.0); LYMPH # 0.5 10*3/uL (1.3-4.4); LYMPH % 5.5 % (27.0-41.0); MEAN CELL VOLUME 93.3 fl (81.0-99.0); MEAN CORPUSCULAR HGB 29.5 pg (27.0-31.0); MEAN CORPUSCULAR HGB CONC 31.7 g/dl (33.0-37.0); MEAN PLATELET VOLUME 11.6 fl (9.6-12.3); MONO # 0.3 10*3/uL (0.1-1.0); MONO % 3.9 % (3.0-9.0); NEUT # 7.6 10*3/uL (2.3-7.9); NEUT % 89.7 % (47.0-73.0); PLATELET COUNT AUTOMATED 204 10*3/uL (130-400); RED BLOOD COUNT 3.86 10*6/uL (4.10-5.10); RED CELL DISTRI WIDTH 14.4 % (0-14.5); WHITE BLOOD COUNT 8.5 10*3/uL (4.8-10.8)
[2021-03-27 07:24] LABS: ALBUMIN 1.8 gm/dl (3.1-4.5); ALKALINE PHOSPHATASE 77 U/L (45-117); BUN 25 mg/dl (7-24); CHLORIDE 110 mmol/L (98-107); CREATININE 1.04 mg/dL (0.55-1.02); LDH 218 U/L (84-246); POTASSIUM 3.7 mmol/L (3.5-5.1); SGOT/AST 16 IU/L (3-35); SGPT/ALT 17 U/L (12-78); SODIUM 140 mmol/L (136-145); TOTAL PROTEIN 5.4 gm/dL (6.4-8.2)
[2021-03-27 08:00] VITALS: BP 128/52
[2021-03-27 12:00] VITALS: BP 136/50
[2021-03-27 16:00] VITALS: BP 118/55
[2021-03-27 20:00] VITALS: BP 133/58
[2021-03-28 07:01] LABS: BASO % 0.2 % (0.0-1.0); HEMATOCRIT 35.1 % (37.0-47.0); LYMPH # 1.2 10*3/uL (1.3-4.4); LYMPH % 14.1 % (27.0-41.0); MEAN CELL VOLUME 95.1 fl (81.0-99.0); MEAN CORPUSCULAR HGB 29.5 pg (27.0-31.0); MEAN CORPUSCULAR HGB CONC 31.1 g/dl (33.0-37.0); MEAN PLATELET VOLUME 11.5 fl (9.6-12.3); MONO # 0.8 10*3/uL (0.1-1.0); MONO % 9.3 % (3.0-9.0); NEUT # 6.2 10*3/uL (2.3-7.9); NEUT % 74.7 % (47.0-73.0); PLATELET COUNT AUTOMATED 219 10*3/uL (130-400); RED BLOOD COUNT 3.69 10*6/uL (4.10-5.10); RED CELL DISTRI WIDTH 14.4 % (0-14.5); WHITE BLOOD COUNT 8.2 10*3/uL (4.8-10.8)
[2021-03-28 07:29] LABS: ALBUMIN 1.8 gm/dl (3.1-4.5); ALKALINE PHOSPHATASE 67 U/L (45-117); BUN 27 mg/dl (7-24); CHLORIDE 110 mmol/L (98-107); CREATININE 1.06 mg/dL (0.55-1.02); LDH 275 U/L (84-246); POTASSIUM 3.6 mmol/L (3.5-5.1); SGOT/AST 17 IU/L (3-35); SGPT/ALT 16 U/L (12-78); SODIUM 144 mmol/L (136-145); TOTAL PROTEIN 5.1 gm/dL (6.4-8.2)
[2021-03-28 08:00] VITALS: BP 131/45
[2021-03-28 12:00] VITALS: BP 121/45
[2021-03-28 16:00] VITALS: BP 125/46
[2021-03-28 20:00] VITALS: BP 129/48
[2021-03-29] VITALS: BP 142/66
[2021-03-29 07:03] LABS: BASO % 0.3 % (0.0-1.0); HEMATOCRIT 30.1 % (37.0-47.0); LYMPH # 0.6 10*3/uL (1.3-4.4); MEAN CELL VOLUME 95.3 fl (81.0-99.0); MEAN CORPUSCULAR HGB 29.1 pg (27.0-31.0); MEAN CORPUSCULAR HGB CONC 30.6 g/dl (33.0-37.0); MONO # 0.2 10*3/uL (0.1-1.0); NEUT # 6.4 10*3/uL (2.3-7.9); NEUT % 86.7 % (47.0-73.0); PLATELET COUNT AUTOMATED 170 10*3/uL (130-400); RED BLOOD COUNT 3.16 10*6/uL (4.10-5.10); RED CELL DISTRI WIDTH 14.3 % (0-14.5); WHITE BLOOD COUNT 7.4 10*3/uL (4.8-10.8)
[2021-03-29 07:32] LABS: POTASSIUM 3.9 mmol/L (3.5-5.1)
[2021-03-29 07:39] LABS: CREATININE 1.14 mg/dL (0.55-1.02); TOTAL PROTEIN 5.1 gm/dL (6.4-8.2)
[2021-03-29 08:00] VITALS: BP 159/86
[2021-03-29 13:00] VITALS: BP 141/85
[2021-03-29 16:00] VITALS: BP 139/79
[2021-03-29 20:00] VITALS: BP 122/62
[2021-03-30] VITALS: BP 108/46; BP 108/58
[2021-03-30 08:00] VITALS: BP 106/52
[2021-03-30 12:00] VITALS: BP 95/55
[2021-03-30 16:00] VITALS: BP 131/46
[2021-03-30 20:00] VITALS: BP 122/60
[2021-03-31] VITALS: BP 110/40; BP 122/60
[2021-03-31 04:06] VITALS: BP 110/40
[2021-03-31 08:00] VITALS: BP 130/62
[2021-03-31] MEDS ORDERED: Lovenox40 MG/0.4 SC (08:14)
[2021-03-31] MEDS ORDERED: CEFUROXIME AXE250 MG PO (08:14)
[2021-03-31] MEDS ORDERED: DECADRON6 M1 PO (08:14)
[2021-03-31 09:46] LABS: HEMATOCRIT 37.2 % (37.0-47.0); MEAN CELL VOLUME 95.4 fl (81.0-99.0); MEAN CORPUSCULAR HGB 29.7 pg (27.0-31.0); MEAN CORPUSCULAR HGB CONC 31.2 g/dl (33.0-37.0); PLATELET COUNT AUTOMATED 236 10*3/uL (130-400); RED CELL DISTRI WIDTH 14.7 % (0-14.5); WHITE BLOOD COUNT 10.2 10*3/uL (4.8-10.8)
[2021-03-31 10:14] LABS: BUN 30 mg/dl (7-24); CHLORIDE 105 mmol/L (98-107); CREATININE 1.01 mg/dL (0.55-1.02); POTASSIUM 4.1 mmol/L (3.5-5.1); SODIUM 143 mmol/L (136-145)
[2021-03-31 10:15] LABS: TOTAL CELLS COUNTED 100 #CELLS
[2021-03-31 10:16] LABS: PLATELET SUFFICIENCY NORMAL (NORMAL)
== END 2021-03-31 12:30 | DRG 177 ==
LOC: ED 12:10 → EDHOLD 14:17 → 4E 14:17
PROVIDERS: Family Medicine; Internal Medicine Critical Care Medicine; ADMIT Internal Medicine; ATTEND Internal Medicine
PROC: XW033E5 Introduction of Remdesivir Anti-infective into Peripheral Vein, Percutaneous Approach, New Technology Group 5 (ICD-10-PCS; principal; 2021-03-25)
PROC: 02HV33Z Insertion of Infusion Device into Superior Vena Cava, Percutaneous Approach (ICD-10-PCS; 2021-03-28)
PROC: B548ZZA Ultrasonography of Superior Vena Cava, Guidance (ICD-10-PCS; 2021-03-28)
DX: U07.1 COVID-19 (principal); J12.82 Pneumonia due to coronavirus disease 2019; I50.33 Acute on chronic diastolic (congestive) heart failure; E43 Unspecified severe protein-calorie malnutrition; J96.21 Acute and chronic respiratory failure with hypoxia; J44.0 Chronic obstructive pulmonary disease with (acute) lower respiratory infection; J44.1 Chronic obstructive pulmonary disease with (acute) exacerbation; I48.21 Permanent atrial fibrillation; F33.0 Major depressive disorder, recurrent, mild; J45.901 Unspecified asthma with (acute) exacerbation; Z68.43 Body mass index [BMI] 50.0-59.9, adult; E03.9 Hypothyroidism, unspecified; I89.0 Lymphedema, not elsewhere classified; E11.9 Type 2 diabetes mellitus without complications; R62.7 Adult failure to thrive; E66.01 Morbid (severe) obesity due to excess calories; F41.1 Generalized anxiety disorder; G47.33 Obstructive sleep apnea (adult) (pediatric); G40.909 Epilepsy, unspecified, not intractable, without status epilepticus; Z88.2 Allergy status to sulfonamides; Z79.01 Long term (current) use of anticoagulants; Z79.1 Long term (current) use of non-steroidal anti-inflammatories (NSAID); Z79.899 Other long term (current) drug therapy; Z82.3 Family history of stroke